=== PATIENT | male | born 1990 | race Caucasian/White ===

== ENCOUNTER 2018-01-26 09:28 | Emergency (ER) | payer SELFPAY ==
--- NOTE | 2018-01-26 10:07 | EDPHYS ---
Physician Documentation [facility] Name: Morgan Mckeon Age: 27 yrs Sex: Male : 1990 Arrival Date: 01/26/2018 Time: 09:30 Bed 15 Private MD: ED Physician Jasbir Tolbert HPI: 01/26 09:59 This 27 yrs old Male presents to ER via EMS with complaints of Chest Pain. snw 09:59 Onset: The symptoms/episode began/occurred suddenly, just prior to arrival. Associated snw signs and symptoms: Pertinent positives: chest pain. Modifying factors: The patient symptoms are alleviated by nothing. The patient has experienced similar episodes in the past. It is unknown whether or not the patient has recently seen a physician. Pt has not been taking his medications for HTN, anxiety since October. Historical: - Allergies: : No Known Allergies; rb1 - Home Meds: : None [Active]; rb1 - PMHx: :22 CHEST PAIN; rb1 - PSHx: : None; rb1 - Immunization history:: Adult Immunizations up to date. - Social history:: Smoking status: Patient uses tobacco products, chewing tobacco. - Ebola Screening: : Patient negative for fever greater than or equal to 101.5 degrees Fahrenheit, and additional compatible Ebola Virus Disease symptoms. ROS: 09:51 Constitutional: Negative for fever, chills, and weight loss, Eyes: Negative for injury, snw pain, redness, and discharge, ENT: Negative for injury, pain, and discharge, Neck: Negative for injury, pain, and swelling, Cardiovascular: Negative for palpitations and edema, chest pain Respiratory: Negative for shortness of breath, cough, wheezing, and pleuritic chest pain, Abdomen/GI: Negative for abdominal pain, nausea, vomiting, diarrhea, and constipation, Back: Negative for injury and pain, : Negative for injury, bleeding, discharge, and swelling, MS/Extremity: Negative for injury and deformity, Skin: Negative for injury, rash, and discoloration, Neuro: Negative for headache, weakness, numbness, tingling, and seizure, Psych: Negative for depression, anxiety, suicide ideation, homicidal ideation, and hallucinations. Exam: 09:51 Constitutional: This is a well developed, well nourished patient who is awake, alert, snw and in no acute distress. Head/Face: Normocephalic, atraumatic. Eyes: Pupils equal round and reactive to light, extra-ocular motions intact. Lids and lashes normal. Conjunctiva and sclera are non-icteric and not injected. Cornea within normal limits. Periorbital areas with no swelling, redness, or edema. ENT: Nares patent. No nasal discharge, no septal abnormalities noted. Tympanic membranes are normal and external auditory canals are clear. Oropharynx with no redness, swelling, or masses, exudates, or evidence of obstruction, uvula midline. Mucous membranes moist. Neck: Trachea midline, no thyromegaly or masses palpated, and no cervical lymphadenopathy. Supple, full range of motion without nuchal rigidity, or vertebral point tenderness. No Meningismus. Chest/axilla: Normal chest wall appearance and motion. Nontender with no deformity. No lesions are appreciated. Cardiovascular: Regular rate and rhythm with a normal S1 and S2. No gallops, murmurs, or rubs. Normal PMI, no JVD. No pulse deficits. Respiratory: Lungs have equal breath sounds bilaterally, clear to auscultation and percussion. No rales, rhonchi or wheezes noted. No increased work of breathing, no retractions or nasal flaring. Abdomen/GI: Soft, non-tender, with normal bowel sounds. No distension or tympany. No guarding or rebound. No evidence of tenderness throughout. Back: No spinal tenderness. No costovertebral tenderness. Full range of motion. Skin: Warm, dry with normal turgor. Normal color with no rashes, no lesions, and no evidence of cellulitis. MS/ Extremity: Pulses equal, no cyanosis. Neurovascular intact. Full, normal range of motion. Neuro: Awake and alert, GCS 15, oriented to person, place, time, and situation. Cranial nerves II-XII grossly intact. Motor strength 5/5 in all extremities. Sensory grossly intact. Cerebellar exam normal. Normal gait. Vital Signs: 09:22 BP 145 / 93; Pulse 59; Resp 20; Temp 98.6(O); Pulse Ox 99% on R/A; Weight 124.74 kg; rb1 Height 6 ft. 0 in. (182.88 cm) (R); Pain 10/10; 10:20 BP 138 / 87; Pulse 61; Resp 17; Pulse Ox 99% on R/A; rb1 09:22 Body Mass Index 37.30 (124.74 kg, 182.88 cm) rb1 MDM: 09:32 Patient medically screened. snw 10:07 Data reviewed: vital signs, nurses notes. Data interpreted: Pulse oximetry: on room air snw is 99 %. Interpretation: normal. Counseling: I had a detailed discussion with the patient and/or guardian regarding: the historical points, exam findings, and any diagnostic results supporting the discharge/admit diagnosis, the presence of at least one elevated blood pressure reading (>120/80) during this emergency department visit, the need for outpatient follow up, for definitive care, to return to the emergency department if symptoms worsen or persist or if there are any questions or concerns that arise at home. Special discussion: Based on the patient's history, exam, and Dx evaluation, there is no indication for emergent intervention or inpatient Tx. It is understood by the patient/guardian that if the Sx's persist or worsen they need to return immediately for re-evaluation. Based on the history and exam findings, there is no indication for further emergent testing or inpatient evaluation. I discussed with the patient/guardian the need to see the primary care provider for further evaluation of the symptoms. 01/26 09:35 Order name: Chest Pa And Lat (2 Views) XRAY snw 01/26 09:35 Order name: EKG; Complete Time: 09:35 snw 01/26 09:35 Order name: EKG - Nurse/Tech; Complete Time: 09:38 snw Administered Medications: No medications were administered Disposition: 15:14 Co-signature as Attending Physician, Jasbir Tolbert MD I agree with the assessment and kdr plan of care. Disposition: 01/26/18 10:06 Discharged to Home. Impression: Gastro-esophageal reflux disease, Chest pain, unspecified. - Condition is Stable. - Discharge Instructions: Nonspecific Chest Pain, Gastroesophageal Reflux Disease, Adult, Hypertension. - Prescriptions for Zantac 300 mg Oral Tablet - take 1 tablet by ORAL route At bedtime; 30 tablet. - Medication Reconciliation Form, Thank You Letter, Antibiotic Education, Prescription Opioid Use form. - Follow up: Private Physician; When: 2 - 3 days; Reason: Recheck today's complaints, Continuance of care, Re-evaluation by your physician. Follow up: Emergency Department; When: As needed; Reason: Worsening of condition. Signatures: Dispatcher [employer] EDMS Jasbir Tolbert MD MD kdr Therrien, Shelly, KARTHIK-C STROKE PROGRAM COORDINATOR-Gew Ena Lechuga, RN RN rb1 Corrections: (The following items were deleted from the chart) 10:28 10:06 01/26/2018 10:06 Discharged to Home. Impression: Gastro-esophageal reflux rb1 disease; Chest pain, unspecified. Condition is Stable. Forms are Medication Reconciliation Form, Thank You Letter, Antibiotic Education, Prescription Opioid Use. Follow up: Private Physician; When: 2 - 3 days; Reason: Recheck today's complaints, Continuance of care, Re-evaluation by your physician. Follow up: Emergency Department; When: As needed; Reason: Worsening of condition. snw
--- NOTE | 2018-01-26 10:07 | ER ---
Nurse's Notes [facility] Name: Morgan Mckeon Age: 27 yrs Sex: Male : 1990 Arrival Date: 01/26/2018 Time: 09:30 Bed 15 Private MD: Diagnosis: Gastro-esophageal reflux disease;Chest pain, unspecified Presentation: 01/26 09:22 Presenting complaint: EMS states: Pt. is a norris at work, c/o chest pain on left chest rb1 that radiates to the back, has a lot of pressure. He was clammy and pale when EMS arrived. History of chest pain. Is suppose to take medication but hasn't taken any since October. BP 166/86, P 66, O2 98% RA. Transition of care: patient was not received from another setting of care. Onset of symptoms was January 26, 2018 at 04:30. Risk Assessment: Do you want to hurt yourself or someone else? Patient reports no desire to harm self or others. Initial Sepsis Screen: Does the patient meet any 2 criteria? No. Patient's initial sepsis screen is negative. Does the patient have a suspected source of infection? No. Patient's initial sepsis screen is negative. Care prior to arrival: None. :22 Method Of Arrival: EMS: [facility] 09:22 Acuity: JOSE 3 rb1 Triage Assessment: : General: Appears in no apparent distress. comfortable, Behavior is calm, cooperative, rb1 Denies fever. Pain: Complains of pain in left chest Pain radiates to back Pain currently is 10 out of 10 on a pain scale. Pain began 0430. Neuro: Level of Consciousness is awake, alert, obeys commands, Oriented to person, place, time, situation. Cardiovascular: Capillary refill < 3 seconds is brisk in bilateral fingers. Respiratory: Airway is patent Respiratory effort is even, unlabored, Respiratory pattern is regular, symmetrical. GI: No signs and/or symptoms were reported involving the gastrointestinal system. : No signs and/or symptoms were reported regarding the genitourinary system. Derm: Skin is pink, warm \T\ dry. Musculoskeletal: Range of motion: intact in all extremities. Historical: - Allergies: 09: No Known Allergies; rb1 - Home Meds: : None [Active]; rb1 - PMHx: : CHEST PAIN; rb1 - PSHx: 09: None; rb1 - Immunization history:: Adult Immunizations up to date. - Social history:: Smoking status: Patient uses tobacco products, chewing tobacco. - Ebola Screening: : Patient negative for fever greater than or equal to 101.5 degrees Fahrenheit, and additional compatible Ebola Virus Disease symptoms. Screenin: Abuse screen: Denies threats or abuse. Nutritional screening: No deficits noted. rb1 Tuberculosis screening: No symptoms or risk factors identified. Fall Risk None identified. Assessment: : General: See triage assessment. rb1 10:20 Reassessment: Patient appears in no apparent distress at this time. Patient and/or rb1 family updated on plan of care and expected duration. Pain level reassessed. Patient is alert, oriented x 3, equal unlabored respirations, skin warm/dry/pink. 6/10. Vital Signs: : BP 145 / 93; Pulse 59; Resp 20; Temp 98.6(O); Pulse Ox 99% on R/A; Weight 124.74 kg; rb1 Height 6 ft. 0 in. (182.88 cm) (R); Pain 10/10; 10:20 BP 138 / 87; Pulse 61; Resp 17; Pulse Ox 99% on R/A; rb1 09:22 Body Mass Index 37.30 (124.74 kg, 182.88 cm) rb1 ED Course: : Arm band placed on right wrist. rb1 :22 Patient has correct armband on for positive identification. Bed in low position. Call rb1 light in reach. Side rails up X 1. quality assurance monitor chassis on. Pulse ox on. NIBP on. 09:30 Patient arrived in ED. rb1 09:32 Che Choudhury FNP-C is PHCP. snw 09:32 Jasbir Tolbert MD is Attending Physician. snw 09:37 Triage completed. rb1 09:38 EKG done, by ED staff, reviewed by Che ENGEL. dh3 09:56 Chest Pa And Lat (2 Views) XRAY In Process Unspecified. EDMS 09:59 Ena Lechuga, EITAN is Primary Nurse. rb1 10:27 No provider procedures requiring assistance completed. Patient did not have IV access rb1 during this emergency room visit. Administered Medications: No medications were administered Outcome: 10:06 Discharge ordered by . snw 10:27 Discharged to home ambulatory, with friend. rb1 10:27 Condition: stable 10:27 Discharge instructions given to patient, Instructed on discharge instructions, follow up and referral plans. medication usage, Demonstrated understanding of instructions, follow-up care, medications, Prescriptions given X 1. 10:28 Patient left the ED. rb1 Signatures: Dispatcher [employer] EDMS Che Choudhury, KARTHIK-C MOBILE APPLICATION ARCHITECT-Gew Ena Lechuga, RN RN rb1 Yee Shin [facility]
--- NOTE | 2018-01-26 12:14 | RAD REPORT ---
EXAM DESCRIPTION: RAD - Chest Pa And Lat (2 Views) - 01/26/2018 9:57 am CLINICAL HISTORY: Left-sided chest pain COMPARISON: October 2013 TECHNIQUE: PA and lateral views of the chest were obtained. FINDINGS: The lungs are clear. Heart size is normal and central vasculature is within normal limit s. No pleural effusion or pneumothorax seen. No acute bony finding noted. No aortic abnormality. IMPRESSION: No acute cardiopulmonary process.
--- NOTE | 2018-01-27 09:05 | EKG ---
Test Date: 2018-01-26 Test Time: 09:30:36 An/Syq 13 Nav/C2 Operator: BLAZE MEASUREMENT RESULTS: Intervals: Rate: 62 SD: 128 QRSD: 104 QT: 400 QTc: 406 Hardwick: P: 35 SD: 128 QRS: 60 T: 33 INTERPRETIVE STATEMENTS: Sinus rhythm with marked sinus arrhythmia Otherwise normal ECG Compared to ECG 10/20/2013 21:49:27 Sinus bradycardia no longer present Electronically Signed On 01-27-18 09:04:32 CDT by Kem Gilliland
== END 2018-01-26 10:28 | disposition home or self-care (01) ==
LOC: ER 09:28
DX: K21.9 Gastro-esophageal reflux disease without esophagitis (principal); F17.220 Nicotine dependence, chewing tobacco, uncomplicated
CPT/HCPCS: 71046; 93005; 99284

== ENCOUNTER 2021-09-26 10:38 | Emergency (ER) | payer SELFPAY ==
--- OUTSIDE RECORDS SUMMARY | 2021-09-26 10:41 | XMS REPORT | Continuity of Care Document ---
:1990 Author Organization [facility] t Address [address] [place] [address] Care Team Providers Name Role Phone OLGA Attending Clinician Unavailable OLGA Admitting Clinician Unavailable Problems This patient has no known problems. Allergies, Adverse Reactions, Alerts This patient has no known allergies or adverse reactions. Medications This patient has no known medications. Procedures This patient has no known procedures. Encounters Start End Encounter Admission Attending Care Care Encounter Source Date/Time Date/Time Type Type Clinicians Facility Department ID 2021-05-04 2021-05-04 Outpatient SHIRA STEIN [facility] [phone] [place] 09:02:00 09:02:00 H [facility] h Program Results This patient has no known results.
[2021-09-26 11:09] LABS: Urine Blood Negative (Negative); Urine Glucose Negative (Negative); Urine Protein Negative (Negative); Urine Specific Gravity 1.025 (1.005-1.030); Urine pH 5.5 (5.0-7.0)
[2021-09-26] MEDS ORDERED: MORPHINE 4 MG/ML SYR ONE (11:10)
[2021-09-26] MEDS ORDERED: ONDANSETRON 4 MG/2 ML VIAL ONE (11:11)
[2021-09-26] MEDS ORDERED: NA CHLORIDE 0.9% 1,000 ML ONE (11:12)
[2021-09-26 11:20] LABS: Urine Bacteria <20 /HPF (NONE SEEN); Urine RBC <5 /HPF (NONE SEEN)
[2021-09-26 11:20] LABS: Absolute Lymphocytes (CBC) 2.9 K/uL (0.7-4.9); Hematocrit 41.6 % (39.6-49.0); MPV 8.1 fL (7.6-11.3); RBC Red Blood Cell Count 5.01 M/uL (4.33-5.43)
[2021-09-26 11:36] LABS: Albumin 3.9 g/dL (3.4-5.0); Bilirubin Total 0.5 mg/dL (0.2-1.0); Potassium 4.2 mmol/L (3.5-5.1); Protein, Total 8.1 g/dL (6.4-8.2)
--- NOTE | 2021-09-26 11:54 | RAD REPORT ---
EXAM DESCRIPTION: CT - [facility] Protocol - 09/26/2021 11:40 am CLINICAL HISTORY: Abdominal pain. Right flank pain COMPARISON: None. TECHNIQUE: Computed axial tomography of the abdomen pelvis was obtained without oral or IV contrast. Lack of IV and oral contrast limits evaluation of solid organs, bowel, and vessels. Coronal reformat sari images were obtained and reviewed. All CT scans are performed using dose optimization technique as appropriate and may include automated exposure control or mA/KV adjustment according to patient size. FINDINGS: A renal calculus is not seen. An ureteral calculus is not noted. A bladder calculus is not present. The liver, spleen, pancreas and adrenals appear grossly normal There is no evidence of diverticulitis. The appendix appears normal Small umbilical hernia IMPRESSION: Negative for a genitourinary calculus
--- NOTE | 2021-09-26 12:10 | ER ---
Nurse's Notes [facility] Name: Morgan Mckeon Age: 31 yrs Sex: Male : 1990 Arrival Date: 09/26/2021 Time: 10:39 Bed 5 Private MD: Diagnosis: Sprain of ligaments of lumbar spine Presentation: 09/26 10:42 Chief complaint: Patient states: Right flank pain with nausea and Lower ABD pain x 2 vg1 days; also stated has a burning sensation upon urination. Coronavirus screen: Vaccine status: Patient reports receiving the 2nd dose of the covid vaccine. Client denies travel out of the [place] in the last 14 days. Ebola Screen: Patient denies exposure to infectious person. Patient denies travel to an Ebola-affected area in the 21 days before illness onset. Initial Sepsis Screen: Does the patient meet any 2 criteria? No. Patient's initial sepsis screen is negative. Does the patient have a suspected source of infection? No. Patient's initial sepsis screen is negative. Risk Assessment: Do you want to hurt yourself or someone else? Patient reports no desire to harm self or others. Onset of symptoms was September 24, 2021. 10:42 Method Of Arrival: Ambulatory vg1 10:42 Acuity: JOSE 3 vg1 Triage Assessment: 10:44 General: Appears in no apparent distress. uncomfortable, Behavior is calm, cooperative. vg1 Pain: Complains of pain in posterior aspect of right lateral abdomen, right lower quadrant and left lower quadrant Pain currently is 5 out of 10 on a pain scale. GI: Reports lower abdominal pain, nausea. : Reports burning with urination. Musculoskeletal: Circulation, motion, and sensation intact. Historical: - Allergies: 10:44 No Known Allergies; vg1 - Home Meds: 10:44 None [Active]; vg1 - PMHx: 10:44 Hypertensive disorder; Bipolar disorder; Anxiety; Depressive disorder; vg1 - PSHx: 10:44 None; vg1 - Immunization history:: Client reports receiving the 2nd dose of the Covid vaccine. - Social history:: Smoking status: Patient denies any tobacco usage or history of. Screenin:53 Abuse screen: Denies threats or abuse. Denies injuries from another. Nutritional jg9 screening: No deficits noted. Tuberculosis screening: No symptoms or risk factors identified. Fall Risk None identified. Assessment: 10:53 Neuro: No deficits noted. Musculoskeletal: Reports heavy lifting more than normal over jg9 the past few days. 11:35 Reassessment: Patient and/or family updated on plan of care and expected duration. Pain jg9 level reassessed. Patient is alert, oriented x 3, equal unlabored respirations, skin warm/dry/pink. Patient states feeling better. Patient states symptoms have improved. Vital Signs: 10:42 BP 145 / 92; Pulse 65; Resp 16; Temp 99.0(TE); Pulse Ox 100% ; Weight 145.15 kg; Height vg1 6 ft. 0 in. (182.88 cm); Pain 5/10; 10:55 BP 143 / 83; Pulse 64; Resp 14 S; Pulse Ox 98% on R/A; jg9 12:00 BP 140 / 80; Pulse 65; Resp 16 S; Pulse Ox 98% on R/A; Pain 2/10; jg9 10:42 Body Mass Index 43.40 (145.15 kg, 182.88 cm) vg1 ED Course: 10:39 Patient arrived in ED. am2 10:44 Triage completed. vg1 10:44 Arm band placed on. vg1 10:49 Kellen Wylie, RN is Primary Nurse. jg9 10:53 [facility] Marshall [facility] jh7 10:54 Juan Antonio Newell MD is Attending Physician. [facility] 10:54 Patient has correct armband on for positive identification. Bed in low position. Call jg9 light in reach. Side rails up X 1. 11:10 Inserted saline lock: 22 gauge in left antecubital area, using aseptic technique. Blood jg9 collected. 11:42 CT [facility] Protocol In Process Unspecified. EDMS 12:17 No provider procedures requiring assistance completed. jg9 12:18 IV discontinued. jg9 Administered Medications: 11:13 Drug: NS 0.9% 1000 ml Route: IV; Rate: 1 bolus; Site: left antecubital; jg9 12:05 Follow up: IV Status: Completed infusion; IV Intake: 1000ml jg9 11:14 Drug: Zofran (Ondansetron) 4 mg Route: IVP; Infused Over: 2 mins; Site: left jg9 antecubital; 11:35 Follow up: Response: No adverse reaction; Nausea is decreased jg9 11:14 Drug: morphine 4 mg Route: IVP; Infused Over: 4 mins; Site: left antecubital; jg9 11:35 Follow up: Response: No adverse reaction; Pain is decreased jg9 Medication: 10:55 VIS not applicable for this client. jg9 Intake: 12:05 IV: 1000ml; Total: 1000ml. jg9 Outcome: 12:09 Discharge ordered by MD. reynolds 12:17 Discharged to home ambulatory. jg9 12:17 Condition: stable 12:17 Discharge instructions given to patient, Instructed on discharge instructions, follow up and referral plans. Demonstrated understanding of instructions, follow-up care, medications, Prescriptions given X 2. 12:18 Patient left the ED. jg9 Signatures: Dispatcher [employer] EDJoyce Parkinson Victoria RN RN vg1 Kellen Wylie RN RN jg9 Kellen Marshall, KARTHIK reynolds Corrections: (The following items were deleted from the chart) 10:45 10:44 PMHx: chest pain; vg1 vg1
--- NOTE | 2021-09-26 12:10 | EDPHYS ---
Physician Documentation [facility] Name: Morgan Mckeon Age: 31 yrs Sex: Male : 1990 Arrival Date: 09/26/2021 Time: 10:39 Bed 5 Private MD: Juan Antonio Howell HPI: 09/26 10:50 This 31 yrs old Male presents to ER via Ambulatory with complaints of Flank Pain, Back jh7 Pain. 10:50 The patient complains of pain in the right low back. The pain does not radiate. Onset: jh7 The symptoms/episode began/occurred 2 day(s) ago. Associated signs and symptoms: Pertinent positives: Mild tingling sensation at the tip of his penis after urinating. Patient reports right lower back pain with mild nausea for 2 days. He denies any recent sexual activity, and states he has no concern for an STI. He also denies fever. States that he has been lifting a lot of heavy boxes lately, but wants to ensure he does not have a renal stone.. Historical: - Allergies: 10:44 No Known Allergies; vg1 - Home Meds: 10:44 None [Active]; vg1 - PMHx: 10:44 Hypertensive disorder; Bipolar disorder; Anxiety; Depressive disorder; vg1 - PSHx: 10:44 None; vg1 - Immunization history:: Client reports receiving the 2nd dose of the Covid vaccine. - Social history:: Smoking status: Patient denies any tobacco usage or history of. ROS: 10:50 Constitutional: Negative for fever, chills, and weight loss, Eyes: Negative for injury, jh7 pain, redness, and discharge, Neck: Negative for injury, pain, and swelling, Cardiovascular: Negative for chest pain, palpitations, and edema, Respiratory: Negative for shortness of breath, cough, wheezing, and pleuritic chest pain, : Negative for injury, bleeding, discharge, and swelling. 10:50 Skin: Negative for injury, rash, and discoloration, Neuro: Negative for headache, weakness, numbness, tingling, and seizure. 10:50 Abdomen/GI: Positive for nausea, Negative for abdominal pain, diarrhea, abdominal distension, rectal pain, rectal bleeding. 10:50 Back: Positive for flank pain, on the right. Exam: 10:50 Constitutional: This is a well developed, well nourished patient who is awake, alert, jh7 and in no acute distress. ENT: Nares patent. No nasal discharge, no septal abnormalities noted. Tympanic membranes are normal and external auditory canals are clear. Oropharynx with no redness, swelling, or masses, exudates, or evidence of obstruction, uvula midline. Mucous membranes moist. Neck: Trachea midline, no thyromegaly or masses palpated, and no cervical lymphadenopathy. Supple, full range of motion without nuchal rigidity, or vertebral point tenderness. No Meningismus. Cardiovascular: Regular rate and rhythm with a normal S1 and S2. No gallops, murmurs, or rubs. Normal PMI, no JVD. No pulse deficits. Respiratory: Lungs have equal breath sounds bilaterally, clear to auscultation and percussion. No rales, rhonchi or wheezes noted. No increased work of breathing, no retractions or nasal flaring. Skin: Warm, dry with normal turgor. Normal color with no rashes, no lesions, and no evidence of cellulitis. MS/ Extremity: Pulses equal, no cyanosis. Neurovascular intact. Full, normal range of motion. Neuro: Awake and alert, GCS 15, oriented to person, place, time, and situation. Motor strength 5/5 in all extremities. Sensory grossly intact. Normal gait. 10:50 Back: pain, that is moderate, of the right low back, ROM is normal, CVA tenderness, that is moderate, is noted on the right. 10:50 : CVA tenderness, on the right, Male external genitalia: normal. Vital Signs: 10:42 BP 145 / 92; Pulse 65; Resp 16; Temp 99.0(TE); Pulse Ox 100% ; Weight 145.15 kg; Height vg1 6 ft. 0 in. (182.88 cm); Pain 5/10; 10:55 BP 143 / 83; Pulse 64; Resp 14 S; Pulse Ox 98% on R/A; jg9 12:00 BP 140 / 80; Pulse 65; Resp 16 S; Pulse Ox 98% on R/A; Pain 2/10; jg9 10:42 Body Mass Index 43.40 (145.15 kg, 182.88 cm) 1 MDM: 10:54 Patient medically screened. [facility] 12:10 Differential diagnosis: nephrolithiasis, UTI, Lumbar strain. Data reviewed: vital [facility] signs, nurses notes, lab test result(s), radiologic studies, CT scan. Data interpreted: Pulse oximetry: is 98 %. Interpretation: normal. Counseling: I had a detailed discussion with the patient and/or guardian regarding: the historical points, exam findings, and any diagnostic results supporting the discharge/admit diagnosis, to return to the emergency department if symptoms worsen or persist or if there are any questions or concerns that arise at home. ED course: The patient remained stable throughout his ER visit. Discussed labs and CT results. The patient stated he felt much better after fluids and medication. Stated that he figured it was probably his back that he pulled while lifting boxes, and that the strange sensation that he feels after urinating often happens when he is dehydrated. Advised him to return to the ER if he develops any new concerning symptoms, or current symptoms persist.. 09/26 10:59 Order name: CBC with Diff; Complete Time: 12:00 [facility] 09/26 10:59 Order name: CMP; Complete Time: 12:00 [facility] 09/26 10:59 Order name: Lipase; Complete Time: 12:00 [facility] 09/26 10:59 Order name: Urine Microscopic Only; Complete Time: 12:00 [facility] 09/26 10:59 Order name: CT Stone Protocol; Complete Time: 12:00 [facility] 09/26 11:09 Order name: Urine Dipstick-Ancillary; Complete Time: 12:00 [facility] 09/26 10:59 Order name: IV Saline Lock; Complete Time: 11:13 [facility] 09/26 10:59 Order name: Labs collected and sent; Complete Time: 11:14 [facility] 09/26 10:59 Order name: Urine Dipstick-Ancillary (obtain specimen); Complete Time: 11:14 [facility] Administered Medications: 11:13 Drug: NS 0.9% 1000 ml Route: IV; Rate: 1 bolus; Site: left antecubital; j9 12:05 Follow up: IV Status: Completed infusion; IV Intake: 1000ml j9 11:14 Drug: Zofran (Ondansetron) 4 mg Route: IVP; Infused Over: 2 mins; Site: left jg9 antecubital; 11:35 Follow up: Response: No adverse reaction; Nausea is decreased 9 11:14 Drug: morphine 4 mg Route: IVP; Infused Over: 4 mins; Site: left antecubital; jg9 11:35 Follow up: Response: No adverse reaction; Pain is decreased jg9 Disposition Summary: 09/26/21 12:09 Discharge Ordered Location: Home [facility] Problem: new [facility] Symptoms: have improved [facility] Condition: Stable [facility] Diagnosis - Sprain of ligaments of lumbar spine [facility] Followup: [facility] - With: Private Physician - When: 2 - 3 days - Reason: Recheck today's complaints Discharge Instructions: - Discharge Summary Sheet [facility] Forms: - Medication Reconciliation Form [facility] - Thank You Letter [facility] Prescriptions: - Naprosyn 500 mg Oral Tablet - take 1 tablet by ORAL route 2 times per day take with food; 30 tablet; Refills: [facility] 0, Product Selection Permitted - Zanaflex 4 mg Oral Tablet - take 1 tablet by ORAL route every 8 hours As needed; 20 tablet; Refills: 0, 7 Product Selection Permitted Signatures: Dispatcher [employer] Sparkle Brock RN RN vg1 Kellen Wylie RN RN jg9 Kellen Marshall, ELECTRIC TRUCK DRIVER ELECTRIC TRUCK DRIVER 7 Corrections: (The following items were deleted from the chart) 10:45 10:44 PMHx: chest pain; vg1 vg1
[2021-09-26 12:30] VITALS: TEMP 99
[2021-09-26 12:32] VITALS: BP 143/83; O2SAT 98
== END 2021-09-26 12:18 | disposition home or self-care (01) ==
LOC: ER 10:38
DX: S33.5XXA Sprain of ligaments of lumbar spine, initial encounter (principal); R11.0 Nausea; I10 Essential (primary) hypertension
CPT/HCPCS: 36415; 74176; 76377; 80053; 81003; 81015; 83690; 85025; J2405; J7030

== ENCOUNTER 2022-04-09 16:47 | Emergency (ER) | payer SELFPAY ==
--- OUTSIDE RECORDS SUMMARY | 2022-04-09 16:51 | XMS REPORT | Continuity of Care Document ---
:1990 Author Organization [facility] t Address [address] [place] [address] Care Team Providers Name Role Phone OLGA Attending Clinician Unavailable OLAG Admitting Clinician Unavailable Problems This patient has no known problems. Allergies, Adverse Reactions, Alerts This patient has no known allergies or adverse reactions. Medications This patient has no known medications. Procedures This patient has no known procedures. Encounters Start End Encounter Admission Attending Care Care Encounter Source Date/Time Date/Time Type Type Clinicians Facility Department ID 2021-05-04 2021-05-04 Outpatient SHIRA STEIN [facility] [id number] [place] 09:02:00 09:02:[address] [facility] h Program Results This patient has no known results.
--- NOTE | 2022-04-09 20:09 | RAD REPORT ---
EXAM DESCRIPTION: RAD - Wrist Left 3 View - 04/09/2022 7:34 pm CLINICAL HISTORY: Left wrist pain FINDINGS: No fracture or dislocation is seen. No bone or joint abnormality noted
--- NOTE | 2022-04-09 20:24 | EDPHYS ---
Physician Documentation [facility] Name: Mogran Mckeon Age: 31 yrs Sex: Male : 1990 Arrival Date: 04/09/2022 Time: 16:51 Bed 9 Private MD: ED Physician Magalie Mora HPI: 04/09 19:00 This 31 yrs old Male presents to ER via Ambulatory with complaints of Arm Problem. cp 19:00 The patient or guardian complains of pain, that is acute. The complaints affect the cp dorsal aspect of left forearm and left wrist. Context: resulted from unknown cause. 19:00 Onset: The symptoms/episode began/occurred for past several weeks. cp 19:00 Treatment prior to arrival includes: no previous treatment. Modifying factors: the cp symptoms are aggravated by movement. Associated signs and symptoms: Pertinent negatives: decreased range of motion, numbness, weakness, injury. Historical: - Allergies: 17:38 No Known Allergies; ss - Home Meds: 17:38 None [Active]; ss - PMHx: 17:38 Anxiety; Bipolar disorder; depressive disorder; Hypertensive disorder; ss - PSHx: 17:38 None; ss - Immunization history:: Client reports receiving the 2nd dose of the Covid vaccine. - Social history:: Smoking status: Patient denies any tobacco usage or history of. ROS: 19:05 Constitutional: Negative for body aches, chills, fever, poor PO intake. cp 19:05 Eyes: Negative for injury, pain, redness, and discharge. cp 19:05 Respiratory: Negative for cough, shortness of breath, wheezing. 19:05 Abdomen/GI: Negative for abdominal pain, nausea, vomiting, and diarrhea. 19:05 MS/extremity: Positive for pain, swelling, tenderness, of the dorsal radial side of left wrist, Negative for injury or acute deformity, decreased range of motion, paresthesias. 19:05 Skin: Negative for cellulitis, rash. Exam: 19:10 Constitutional: The patient appears in no acute distress, alert, awake, non-toxic, well cp developed, well nourished, obese. 19:10 Head/Face: Normocephalic, atraumatic. cp 19:10 Musculoskeletal/extremity: Extremities: grossly normal except: noted in the dorsal and cp radial side of left forearm: pain, swelling, tenderness, pain with flexion and extension of left wrist, There is no evidence of decreased ROM, Pulses: noted to be 2+ in the left radial artery, the left wristand left hand Sensation intact. 19:10 Skin: cellulitis, is not appreciated, no rash present. 19:10 Neck: ROM/movement: is normal, is supple, without pain, no range of motions limitations.cp 19:10 Chest/axilla: Inspection: normal. 19:10 Cardiovascular: Rate: normal, Rhythm: regular. 19:10 Respiratory: the patient does not display signs of respiratory distress, Respirations: normal, no use of accessory muscles, no retractions, labored breathing, is not present. Vital Signs: 17:36 Pulse 89; Resp 15; Temp 98.0(TE); Pulse Ox 97% on R/A; Weight 143.79 kg; Height 6 ft. 0 ss in. (182.88 cm); Pain 4/10; 17:39 BP 157 / 93; ss 20:46 BP 148 / 90; Pulse 86; Resp 16; Pulse Ox 98% on R/A; kr3 17:36 Body Mass Index 42.99 (143.79 kg, 182.88 cm) ss MDM: 17:44 Patient medically screened. cp 20:00 Differential diagnosis: closed fracture, tendonitis, sprain. cp 20:24 Data reviewed: vital signs, nurses notes, radiologic studies, plain films. cp 20:24 Test interpretation: by ED physician or midlevel provider: plain radiologic studies. cp Counseling: I had a detailed discussion with the patient and/or guardian regarding: the historical points, exam findings, and any diagnostic results supporting the discharge/admit diagnosis, radiology results, to return to the emergency department if symptoms worsen or persist or if there are any questions or concerns that arise at home. Response to treatment: the patient's symptoms have mildly improved after treatment, and as a result, I will discharge patient. 04/09 18:55 Order name: XRAY Wrist LEFT 3 view; Complete Time: 20:15 cp 04/09 20:15 Interpretation: Report reviewed. cp 04/09 20:15 Order name: Wrist Splint; Complete Time: 20:40 cp Administered Medications: 20:40 Drug: Ibuprofen 800 mg Route: PO; kr3 20:47 Follow up: Response: No adverse reaction kr3 Disposition Summary: 04/09/22 20:24 Discharge Ordered Location: Home cp Problem: new cp Symptoms: have improved cp Condition: Stable cp Diagnosis - Pain in left wrist cp Followup: cp - With: Private Physician - When: 1 week - Reason: Recheck today's complaints Discharge Instructions: - Discharge Summary Sheet cp - Wrist Pain, Adult cp Forms: - Medication Reconciliation Form cp - Thank You Letter cp - Antibiotic Education cp - Prescription Opioid Use cp - Work release form kr3 Prescriptions: - Diclofenac Sodium 75 mg Oral Tablet Sustained Release - take 1 tablet by ORAL route 2 times per day; 30 tablet; Refills: 0, Product cp Selection Permitted Signatures: Dispatcher [employer] Lorna Mejia RN RN ss Page, Corey, PA PA Cassidy Dickey RN RN kr3
--- NOTE | 2022-04-09 20:24 | ER ---
Nurse's Notes [facility] Name: Morgan Mckeon Age: 31 yrs Sex: Male : 1990 Arrival Date: 04/09/2022 Time: 16:51 Bed 9 Private MD: Diagnosis: Pain in left wrist Presentation: 04/09 17:36 Chief complaint: Patient states: Pain to L FA that radiates to L elbow x weeks. No ss known injury. Coronavirus screen: Client denies travel out of the [place] in the last 14 days. Ebola Screen: Patient denies exposure to infectious person. Patient denies travel to an Ebola-affected area in the 21 days before illness onset. Initial Sepsis Screen: Does the patient meet any 2 criteria? No. Patient's initial sepsis screen is negative. Does the patient have a suspected source of infection? No. Patient's initial sepsis screen is negative. Risk Assessment: Do you want to hurt yourself or someone else? Patient reports no desire to harm self or others. Onset of symptoms is unknown. 17:36 Method Of Arrival: Ambulatory ss 17:36 Acuity: OJSE 3 ss Historical: - Allergies: 17:38 No Known Allergies; ss - Home Meds: 17:38 None [Active]; ss - PMHx: 17:38 Anxiety; Bipolar disorder; depressive disorder; Hypertensive disorder; ss - PSHx: 17:38 None; ss - Immunization history:: Client reports receiving the 2nd dose of the Covid vaccine. - Social history:: Smoking status: Patient denies any tobacco usage or history of. Assessment: 19:45 Reassessment: Patient appears in no apparent distress at this time. Patient and/or kr3 family updated on plan of care and expected duration. Pain level reassessed. Patient is alert, oriented x 3, equal unlabored respirations, skin warm/dry/pink. 20:45 Reassessment: Patient appears in no apparent distress at this time. Patient and/or kr3 family updated on plan of care and expected duration. Pain level reassessed. Patient is alert, oriented x 3, equal unlabored respirations, skin warm/dry/pink. Vital Signs: 17:36 Pulse 89; Resp 15; Temp 98.0(TE); Pulse Ox 97% on R/A; Weight 143.79 kg; Height 6 ft. 0 ss in. (182.88 cm); Pain 4/10; 17:39 BP 157 / 93; ss 20:46 BP 148 / 90; Pulse 86; Resp 16; Pulse Ox 98% on R/A; kr3 17:36 Body Mass Index 42.99 (143.79 kg, 182.88 cm) ED Course: 16:51 Patient arrived in ED. mr 16:51 Sarath De La Cruz PA is PHCP. [facility] 16:51 Magalie Mora MD is Attending Physician. [facility] 16:59 PHCP role handed off by Sarath De La Cruz PA cp 16:59 Juan Antonio Mix PA is PHCP. cp 17:38 Triage completed. ss 17:38 Arm band placed on right wrist. ss 19:36 XRAY Wrist LEFT 3 view In Process Unspecified. EDMS Administered Medications: 20:40 Drug: Ibuprofen 800 mg Route: PO; kr3 20:47 Follow up: Response: No adverse reaction kr3 Outcome: 20:24 Discharge ordered by . cp 20:47 Patient left the ED. kr3 Signatures: Dispatcher [employer] EDMS Sarath De La Cruz PA PA jmm Zeeshan Bri mr Lorna Scott, RN RN Juan Antonio Mix PA PA cp Reid, Kelley, RN RN kr3 Corrections: (The following items were deleted from the chart) 17:38 17:35 Chief complaint: ss ss
[2022-04-09] MEDS ORDERED: IBUPROFEN 400 MG TAB ONE (20:34)
[2022-04-09 21:14] VITALS: TEMP 98
[2022-04-09 21:16] VITALS: BP 148/90; O2SAT 98
== END 2022-04-09 20:47 | disposition home or self-care (01) ==
LOC: ER 16:47
DX: M25.532 Pain in left wrist (principal)
CPT/HCPCS: 99283

== ENCOUNTER 2023-03-20 16:55 | Inpatient (IN) | payer BC, SELFPAY ==
--- OUTSIDE RECORDS SUMMARY | 2023-03-20 16:59 | XMS REPORT | Continuity of Care Document ---
Author Name Unknown Address [address] [facility] [place] [address] [facility] thconnect Address [address] [facility] [address] [place] [address] Care Team Providers Care Pulley Maintainer Name Role Phone Wilian VAUGHN, Jose Manuel Lozano Primary Care Physician [phone] SAPPHIRE MG Attending Clinician Unavailable Maria Luisa Malone PTA Attending Clinician Unavail able VAL GUZMAN Attending Clinician UnavailChirag Matson PT, Cheryl Attending Clinician Un available Magnolia BAND TACKERVal Attending Clinician [phone] Doctor Unassigned, Guin Attending Clinician U navailable OLGA Attending Clinician Unavailable JAYDEN_DON Admitting Clinician Unavailable Payers Payer Name Policy Type Policy Number Effective Date Expirati on Date Source [facility] PPO/POS [id number] 2022 00:00:00 Problems Condition Name Condition Details Condition Category Status Onset Date Resolution Date Last Treatment Date Treating Clinician Comments Source Morbid obesity with body mass index of 40.0-49.9 Morbid obesity with body mass index of 40.0-49.9 Disease Active 08-28 00:00: 00 [facility] Dizziness Dizziness Disease Active 08-27 00:00: 00 [facility] Dizziness of unknown cause Dizziness of unknown cause Disease Active 08-27 00:00: 00 [facility] Allergies, Adverse Reactions, Alerts Allergy Name Allergy Type Status Severity Reaction(s) Onset Date Inactive Date Treating Clinician Comments Source NO KNOWN ALLERGIE S Drug Class Active [facility] Social History Social Habit Start Date Stop Date Quantity Comments Source History SDOH Alcohol Binge [facility] History SDOH Social Connections Get Together [facility] History SDOH [facility] Social Connections Membership [facility] History SDOH Social Connections Meetings [facility] Alcohol Frequency 2022-08-28 00:00:00 2022-08-28 00:00:00 2 [facility] History SDOH Alcohol Std Drinks 2022-08-28 00:00:00 2022-08-28 00:00:00 1 [facility] History SDOH Social Connections Phone 2022-08-28 00:00:00 2022-08-28 00:00:00 3 [facility] History SDOH Social Connections Living 2022-08-28 00:00:00 2022-08-28 00:00:00 8 [facility] History SDOH Physical Activity DPW 2022-08-28 00:00:00 2022-08-28 00:00:00 0 [facility] History SDOH Physical Activity MPS 2022-08-28 00:00:00 2022-08-28 00:00:00 0 [facility] History SDOH Financial 2022-08-28 00:00:00 2022-08-28 00:00:00 5 [facility] History SDOH Food Worry 2022-08-28 00:00:00 2022-08-28 00:00:00 1 [facility] History SDOH Food Scarcity 2022-08-28 00:00:00 2022-08-28 00:00:00 1 [facility] History SDOH Transport Med 2022-08-28 00:00:00 2022-08-28 00:00:00 2 [facility] History SDOH Transport Non-Med 2022-08-28 00:00:00 2022-08-28 00:00:00 2 [facility] History SDOH Housing Unable to Pay 2022-08-28 00:00:00 2022-08-28 00:00:00 2 [facility] History SDOH Housing Places Lived 2022-08-28 00:00:00 2022-08-28 00:00:00 1 [facility] History SDOH Housing Homeless Last Year 2022-08-28 00:00:00 2022-08-28 00:00:00 2 [facility] History of Social function 2022-08-28 00:00:00 2022-08-28 00:00:00 [facility] Exposure to SARS-CoV-2 (event) 2022-08-17 00:00:00 2022-08-27 22:00:00 Not sure [facility] Tobacco use and exposure 2022-08-27 00:00:00 2022-08-27 00:00:00 Smokeless tobacco non-user [facility] Sex Ass[birth year] At 1990 00:00:00 1990 00:00:00 [facility] Smoking Status Start Date Stop Date Source Never smoked tobacco [facility] Medications Ordered Medication Name Filled Medication Name Start Date Stop Date Current Medication? Ordering Clinician Indication Dosage Frequency Signature (SIG) Comments Components Source DULoxetine (CYMBALTA) 60 mg capsule 08-28 17:19: 51 Yes 60mg Take 1 capsule by mouth in the morning. [facility] QUEtiapine (SEROQUEL) 25 mg tablet 08-28 17:19: 51 Yes 25mg Take 1 tablet by mouth at bedtime. [facility] QUEtiapine (SEROQUEL) 50 mg tablet 08-28 17:19: 51 Yes 50mg Take 1 tablet by mouth every morning. [facility] DULoxetine (CYMBALTA) 60 mg capsule 08-28 17:19: 51 Yes 60mg Take 1 capsule by mouth in the morning. [facility] QUEtiapine (SEROQUEL) 25 mg tablet 08-28 17:19: 51 Yes 25mg Take 1 tablet by mouth at bedtime. [facility] QUEtiapine (SEROQUEL) 50 mg tablet 08-28 17:19: 51 Yes 50mg Take 1 tablet by mouth every morning. [facility] DULoxetine (CYMBALTA) 60 mg capsule 08-28 17:19: 51 Yes 60mg Take 1 capsule by mouth in the morning. [facility] QUEtiapine (SEROQUEL) 25 mg tablet 08-28 17:19: 51 Yes 25mg Take 1 tablet by mouth at bedtime. [facility] QUEtiapine (SEROQUEL) 50 mg tablet 08-28 17:19: 51 Yes 50mg Take 1 tablet by mouth every morning. [facility] meclizine 12.5 mg tablet 08-28 00:00: 00 Yes [id number] 12.5mg Take 1 tablet by mouth 3 (three) times daily as needed for Dizziness. [facility] meclizine 12.5 mg tablet 08-28 00:00: 00 Yes [id number] 12.5mg Take 1 tablet by mouth 3 (three) times daily as needed for Dizziness. [facility] meclizine 12.5 mg tablet 08-28 00:00: 00 Yes [id number] 12.5mg Take 1 tablet by mouth 3 (three) times daily as needed for Dizziness. [facility] Encounters Start Date/Time End Date/Time Encounter Type Admission Type Attending [facility] Care Department Encounter ID Source 2023-03-04 10:02:39 2023-03-04 10:02:39 Outpatient [facility] [id number] 2022-10-19 13:45:00 2022-10-19 13:45:00 Outpatient SAPPHIRE [facility]IN[facility] [id number] [facility] 2022-09-25 00:00:00 2022-09-25 00:00:00 [facility] Management [facility] [id number] [facility] 2022-09-14 13:00:00 2022-09-14 14:02:32 Outpatient VAL ISAACS [facility] [id number] [facility] 2022-09-14 13:00:00 2022-09-14 14:02:32 Ancillary Visit Cheryl England [facility] [id number] [facility] 2022-09-12 00:00:00 2022-09-12 00:00:00 Patient Secure Msg Doctor Unassigned, Guin [facility] [id number]..[id number] [facility] 2021-05-04 09:02:00 2021-05-04 09:02:00 Outpatient PATEL_MIGDALIA STEIN [place] [id number] Alyx Broussard [facility] Program
[2023-03-20] MEDS ORDERED: OFLOXACIN OPH 0.3%-5 ML BTL OTIC ONE (17:45)
[2023-03-20] MEDS ORDERED: FENTANYL CITR 100 MCG/2 ML ONE (17:48)
[2023-03-20] MEDS ORDERED: NA CHLORIDE 0.9% 1,000 ML ONE ×2 (17:49→22:33)
[2023-03-20] MEDS ORDERED: ONDANSETRON 4 MG/2 ML VIAL ONE (17:49)
[2023-03-20] MEDS ORDERED: NA CHLORIDE 0.9% 50 ML ONE (17:49)
[2023-03-20] MEDS ORDERED: KETOROLAC 30 MG/ML INJ ONE (17:49)
[2023-03-20] MEDS ORDERED: CEFTRIAXONE 2000 MG/VIAL ONE (17:49)
[2023-03-20] MEDS ORDERED: levoFLOXacin 750 MG TAB PO ONE (18:00)
[2023-03-20 18:20] LABS: Absolute Lymphocytes (CBC) 1.1 K/uL (0.7-4.9); Hematocrit 40.2 % (39.6-49.0); Lymphocytes % 6.9 % (15.3-44.8); MCV 84.2 fL (80-100); MPV 8.3 fL (7.6-11.3); Platelets 381 thou/uL (152-406); RBC Red Blood Cell Count 4.77 M/uL (4.33-5.43)
--- NOTE | 2023-03-20 18:29 | RAD REPORT ---
EXAM DESCRIPTION: CT - Head Brain Wo Cont - 03/20/2023 6:11 pm CLINICAL HISTORY: HEADACHE Headache, drowsiness COMPARISON: HEAD BRAIN W O CONTRAST dated 12/26/2008 TECHNIQUE: All CT scans are performed using dose optimization technique as appropriate and may inclu de automated exposure control or mA/KV adjustment according to patient size. FINDINGS: No intracranial hemorrhage, hydrocephalus or extra-axial fluid collection.No areas of brai n edema or evidence of midline shift. Mild fluid is seen in the right middle ear as well as the right mastoid air cell. This may indicate r ight-sided otomastoiditis. Remainder the paranasal sinuses mastoids are clear. The calvarium is intac t. IMPRESSION: No acute intracranial abnormality. Right-sided otomastoiditis is suspected. Suggest direct visualization.
--- NOTE | 2023-03-20 18:30 | RAD REPORT ---
EXAM DESCRIPTION: RAD - Chest Single View - 03/20/2023 5:54 pm CLINICAL HISTORY: COUGH Chest pain. COMPARISON: Chest Pa And Lat (2 Views) dated 01/26/2018; CHEST PA AND LAT 2 VIEW dated 10/20/2013; CH EST SINGLE VIEW dated 12/26/2008; CHEST PA AND LAT 2 VIEW dated 03/25/2008 FINDINGS: Portable technique limits examination quality. The lungs are grossly clear. The heart is upper limit of normal in size. No displaced fractures. IMPRESSION: No acute intrathoracic process suspected.
[2023-03-20] MEDS ORDERED: AMOX/K CLAV 875 MG TAB ONE (18:42)
[2023-03-20 18:46] LABS: Albumin 3.9 g/dL (3.4-5.0); Potassium 3.6 mEq/L (3.5-5.1); Protein, Total 8.9 g/dL (6.4-8.2)
--- NOTE | 2023-03-20 19:01 | EDPHYS ---
Physician Documentation [facility] Name: Morgan Mckeon Age: 32 yrs Sex: Male : 1990 Arrival Date: 03/20/2023 Time: 16:55 Bed 13 Private MD: ED Physician Juan Antonio Newell HPI: 03/20 17:25 This 32 yrs old Male presents to ER via Wheelchair with complaints of fariha Confussion-not responding when spoken too, Near Syncope, Congestion. 17:25 The patient has experienced near-syncope, almost passed out. Onset: The fariha symptoms/episode began/occurred just prior to arrival. Historical: - Allergies: 17:11 No Known Allergies; cm10 - PMHx: 17:11 Anxiety; Bipolar disorder; depressive disorder; Hypertensive disorder; cm10 - Immunization history:: Adult Immunizations up to date. - Social history:: Smoking status: Patient denies any tobacco usage or history of. ROS: 17:27 Constitutional: Negative for fever, chills, and weight loss, Eyes: Negative for injury, fariha pain, redness, and discharge, Neck: Negative for injury, pain, and swelling, Cardiovascular: Negative for chest pain, palpitations, and edema, Respiratory: Negative for shortness of breath, cough, wheezing, and pleuritic chest pain, Abdomen/GI: Negative for abdominal pain, nausea, vomiting, diarrhea, and constipation, Back: Negative for injury and pain, : Negative for injury, bleeding, discharge, and swelling, MS/Extremity: Negative for injury and deformity, Skin: Negative for injury, rash, and discoloration, Psych: Negative for depression, anxiety, suicide ideation, homicidal ideation, and hallucinations, Allergy/Immunology: Negative for hives, rash, and allergies, Endocrine: Negative for neck swelling, polydipsia, polyuria, polyphagia, and marked weight changes, Hematologic/Lymphatic: Negative for swollen nodes, abnormal bleeding, and unusual bruising, 17:27 Neuro: Positive for near syncope, Exam: 17:27 Constitutional: This is a well developed, well nourished patient who is awake, alert, fariha and in no acute distress. Head/Face: Normocephalic, atraumatic. Eyes: Pupils equal round and reactive to light, extra-ocular motions intact. Lids and lashes normal. Conjunctiva and sclera are non-icteric and not injected. Cornea within normal limits. Periorbital areas with no swelling, redness, or edema. Neck: Trachea midline, no thyromegaly or masses palpated, and no cervical lymphadenopathy. Supple, full range of motion without nuchal rigidity, or vertebral point tenderness. No Meningismus. Chest/axilla: Normal chest wall appearance and motion. Nontender with no deformity. No lesions are appreciated. Cardiovascular: Regular rate and rhythm with a normal S1 and S2. No gallops, murmurs, or rubs. Normal PMI, no JVD. No pulse deficits. Respiratory: Lungs have equal breath sounds bilaterally, clear to auscultation and percussion. No rales, rhonchi or wheezes noted. No increased work of breathing, no retractions or nasal flaring. Abdomen/GI: Soft, non-tender, with normal bowel sounds. No distension or tympany. No guarding or rebound. No evidence of tenderness throughout. Back: No spinal tenderness. No costovertebral tenderness. Full range of motion. Male : Normal genitalia with no discharge or lesions. Skin: Warm, dry with normal turgor. Normal color with no rashes, no lesions, and no evidence of cellulitis. MS/ Extremity: Pulses equal, no cyanosis. Neurovascular intact. Full, normal range of motion. Neuro: Awake and alert, GCS 15, oriented to person, place, time, and situation. Cranial nerves II-XII grossly intact. Motor strength 5/5 in all extremities. Sensory grossly intact. Cerebellar exam normal. Normal gait. Psych: Awake, alert, with orientation to person, place and time. Behavior, mood, and affect are within normal limits. 17:27 ENT: External ear(s): cellulitis, erythema, that is moderate, of the right ear canal, TM's: dullness, erythema, loss of bony landmarks, that is pronounced, on the right, Vital Signs: 17:08 BP 156 / 96; Pulse 78; Resp 18; Temp 98.7; Pulse Ox 94% on R/A; Weight 142.88 kg; cm10 Height 6 ft. 0 in. ; Pain 10/10; 17:30 BP 145 / 76; Pulse 70; Resp 18; Pulse Ox 95% on R/A; db 18:20 BP 145 / 78; Pulse 65; Resp 16; Pulse Ox 90% on R/A; db 18:30 BP 134 / 81; Pulse 74; Resp 16; Pulse Ox 97% on 2 lpm NC; db 19:35 BP 149 / 98; Pulse 76; Resp 18 S; Pulse Ox 95% on 2 lpm NC; ha1 20:27 BP 164 / 91; Pulse 70; Resp 18 S; Pulse Ox 97% on R/A; ha1 21:39 BP 152 / 90; Pulse 74; Resp 17 S; Pulse Ox 97% on R/A; ha1 17:08 Body Mass Index 42.72 (142.88 kg, 182.88 cm) cm10 17:08 Pain Scale: Adult cm10 18:20 PLACED ON NC 2 L db MDM: 17:03 [facility]. [facility] 17:30 Differential diagnosis: otitis media, otitis externa, ruptured TM. Data reviewed: [facility] signs, nurses notes, lab test result(s), radiologic studies, CT scan, plain films. Consideration of Admission/Observation Escalation of care including admission/observation considered. I considered the following discharge prescriptions or medication management in the emergency department Medications were administered in the Emergency Department. See MAR. Independent interpretation of the following test(s) in the Emergency Department X-Ray: My interpretation is cxr. Test considered but Not performed: MRI: no brain mri. Historians other than the Patient: pt well informed. Care significantly affected by the following chronic conditions: Hypertension, Obesity, anxiety , bipolar. 03/20 17:19 Order name: CBC with Diff; Complete Time: 18:52 [facility] 03/20 17:19 Order name: Comprehensive Metabolic Panel [facility] 03/20 17:19 Order name: Blood Culture Adult (2) [facility] 03/20 17:19 Order name: Lactate w/ 2H reflex if indic.; Complete Time: 18:52 [facility] 03/20 17:23 Order name: COVID-19/FLU A+B/RSV [facility] 03/20 20:16 Order name: CBC with Automated Diff EDMS 03/20 20:16 Order name: CBC with Automated Diff EDMS 03/20 20:16 Order name: CBC with Automated Diff EDMS 03/20 17:19 Order name: CT Head Brain wo Cont; Complete Time: 18:52 [facility] 03/20 17:45 Order name: Chest Single View XRAY; Complete Time: 18:52 [facility] 03/20 20:16 Order name: CONS Physician Consult EDMS Administered Medications: 17:50 Drug: NS 0.9% IV 1000 ml IV at 1 bolus Per protocol; 1000 mL bolus Route: IV; Rate: 1 db bolus; Site: right antecubital; 17:55 Drug: Rocephin IV 2 grams IV at per protocol once; Given slow IV push per pharmarcy db instructions Route: IV; Rate: per protocol; Site: right antecubital; 17:57 Drug: Ondansetron IVP 4 mg IVP once; over 2 minutes Route: IVP; Site: right antecubital;db 17:58 Drug: Ofloxacin Ophthalmic Drops 0.3 % 4 drops Ophthalmic once; to right ear {Note: db RIGHT EAR.} Route: Ophthalmic; Site: right eye; 17:59 Drug: Ketorolac IVP 15 mg IVP once Route: IVP; Site: right antecubital; db 17:59 Drug: fentaNYL (PF) IVP 50 mcg IVP once Route: IVP; Site: right antecubital; db 17:59 Drug: LevOfloxacin PO 750 mg PO once Route: PO; db 18:30 Drug: Amoxicillin-Clavulanate PO 875 mg PO once Route: PO; db 19:00 Follow up: Response: No adverse reaction ha1 Disposition Summary: 03/20/23 19:00 Hospitalization Ordered Notes: Hospitalization Status: Inpatient Admission fariha Provider: Mariama Benedict cha Location: Telemetry/MedSurg (Inpatient) fariha Condition: Fair fariha Problem: new fariha Symptoms: have improved fariha Bed/Room Type: [facility] Room Assignment: 206(03/21/23 01:38) [id number] Diagnosis - Acute suppurative otitis media fariha - Acute mastoiditis - right otomastoiditis fariha - Fever, unspecified fariha - Elevated white blood cell count [facility] Discharge Instructions: - Discharge Summary Sheet fariha - Otitis Media, Adult fariha - Otitis Externa fariha - Otitis Externa, [id number] fariha - Otitis Media, Adult, [id number] [facility] Forms: - Medication Reconciliation Form fariha - SBAR form fariha - Leadership Thank You Letter [facility] Prescriptions: - Augmentin 875-125 mg Oral Tablet - take 1 tablet ORAL route every 12 hours for 10 days; 20 tablet; Refills: 0, fariha Product Selection Permitted - Ciprodex 0.3-0.1 % Otic drops, suspension - instill 4 drops OTIC route every 12 hours for 7 days , for ears ONLY; 10 fariha milliliter; Refills: 0, Product Selection Permitted - levofloxacin 750 mg Oral tablet - take 1 tablet ORAL route once daily; 7 tablet; Refills: 0, Product Selection fariha Permitted Signatures: Dispatcher [employer] Juan Antonio Onofre MD MD cha Benton, Danielle, RN RN db Jessica Betancourt RN RN 10 Inna Souza [facility] Kristine Zhao RN ha1 Corrections: (The following items were deleted from the chart) 17:55 17:20 Chest Pa And Lat (2 Views)+RAD.[email or web address].BRZ ordered. [facility] 03/21 01:38 03/20 19:00 fariha [email or web address]
--- NOTE | 2023-03-20 19:01 | ER ---
Nurse's Notes [facility] Name: Morgan Mckeon Age: 32 yrs Sex: Male : 1990 Arrival Date: 03/20/2023 Time: 16:55 Bed 13 Private MD: Diagnosis: Acute suppurative otitis media;Acute mastoiditis-right otomastoiditis;Fever, unspecified;Elevated white blood cell count Presentation: 03/20 17:08 Chief complaint: Patient states: Right ear pain X3 days and headache onset this cm10 morning. Pt's states that patient is on ABX for ear infection and today when she got home from work, pt was acting confused and was slow to respond. Pt A\T\Ox4 in triage. Coronavirus screen: Vaccine status: Patient reports receiving the 2nd dose of the covid vaccine. Client denies travel out of the [place] in the last 14 days. Ebola Screen: Patient denies travel to an Ebola-affected area in the 21 days before illness onset. No symptoms or risks identified at this time. Initial Sepsis Screen: Does the patient meet any 2 criteria? No. Patient's initial sepsis screen is negative. Does the patient have a suspected source of infection? No. Patient's initial sepsis screen is negative. Risk Assessment: Do you want to hurt yourself or someone else? Patient reports no desire to harm self or others. Onset of symptoms was March 20, 2023. 17:08 Method Of Arrival: Wheelchair cm10 17:08 Acuity: JOSE 3 cm10 Historical: - Allergies: 17:11 No Known Allergies; cm10 - PMHx: 17:11 Anxiety; Bipolar disorder; depressive disorder; Hypertensive disorder; cm10 - Immunization history:: Adult Immunizations up to date. - Social history:: Smoking status: Patient denies any tobacco usage or history of. Screenin:09 [facility] ED Fall Risk Assessment (Adult) History of falling in the last 3 months, db including since admission No falls in past 3 months (0 pts) Confusion or Disorientation Yes (5 pts) Intoxicated or Sedated No (0 pts) Impaired Gait No (0 pts) Mobility Assist Device Used No (0 pt) Altered Elimination No (0 pt) Score/Fall Risk Level 3 or more points = High Risk Oriented to surroundings, Maintained a safe environment. Abuse screen: Denies threats or abuse. Denies injuries from another. Nutritional screening: No deficits noted. Tuberculosis screening: No symptoms or risk factors identified. Assessment: 17:16 Reassessment: Patient appears in no apparent distress at this time. Patient and/or db family updated on plan of care and expected duration. Pain level reassessed. Patient is alert, oriented x 3, equal unlabored respirations, skin warm/dry/pink. General: Appears in no apparent distress. comfortable, Behavior is calm, cooperative. Pain: Complains of pain in face. Neuro: Level of Consciousness is awake, alert, obeys commands, Oriented to person, place, time, situation. Respiratory: Airway is patent Respiratory effort is even, unlabored, Respiratory pattern is regular, symmetrical. EENT: Reports nasal congestion nasal discharge. 18:09 Reassessment: Patient appears in no apparent distress at this time. Patient and/or db family updated on plan of care and expected duration. Pain level reassessed. Patient is alert, oriented x 3, equal unlabored respirations, skin warm/dry/pink. PT TO CT. SPOUSE AT BEDSIDE. 19:34 General: Appears comfortable, Behavior is calm, cooperative. Pain: Denies pain. Neuro: ha1 Level of Consciousness is awake, alert, Oriented to person, place, time, situation, Reports weakness. Cardiovascular: Heart tones S1 S2 present Capillary refill < 3 seconds Patient's skin is warm and dry. Cardiovascular: Patient's skin is warm and dry. Respiratory: Airway is patent Respiratory effort is even, unlabored, Respiratory pattern is regular, symmetrical. GI: Abdomen is round non-distended. Derm: Skin is pink, warm \T\ dry. Musculoskeletal: Circulation, motion, and sensation intact. Range of motion: intact in all extremities. 20:27 Reassessment: Patient and/or family updated on plan of care and expected duration. Pain ha1 level reassessed. Patient is alert, oriented x 3, equal unlabored respirations, skin warm/dry/pink. 20:58 Reassessment: cell# [phone]. ha1 21:38 Reassessment: Patient and/or family updated on plan of care and expected duration. Pain ha1 level reassessed. Patient is alert, oriented x 3, equal unlabored respirations, skin warm/dry/pink. 22:30 Reassessment: Patient and/or family updated on plan of care and expected duration. Pain ha1 level reassessed. Patient is alert, oriented x 3, equal unlabored respirations, skin warm/dry/pink. 03/21 02:12 Reassessment: report given to EITAN Gaona. ha1 Vital Signs: 03/20 17:08 BP 156 / 96; Pulse 78; Resp 18; Temp 98.7; Pulse Ox 94% on R/A; Weight 142.88 kg; cm10 Height 6 ft. 0 in. ; Pain 10/10; 17:30 BP 145 / 76; Pulse 70; Resp 18; Pulse Ox 95% on R/A; db 18:20 BP 145 / 78; Pulse 65; Resp 16; Pulse Ox 90% on R/A; db 18:30 BP 134 / 81; Pulse 74; Resp 16; Pulse Ox 97% on 2 lpm NC; db 19:35 BP 149 / 98; Pulse 76; Resp 18 S; Pulse Ox 95% on 2 lpm NC; ha1 20:27 BP 164 / 91; Pulse 70; Resp 18 S; Pulse Ox 97% on R/A; ha1 21:39 BP 152 / 90; Pulse 74; Resp 17 S; Pulse Ox 97% on R/A; ha1 17:08 Body Mass Index 42.72 (142.88 kg, 182.88 cm) cm10 17:08 Pain Scale: Adult cm10 18:20 PLACED ON NC 2 L db ED Course: 16:59 Patient arrived in ED. im 17:02 Juan Antonio Newell MD is Attending Physician. fariha 17:11 Triage completed. cm10 17:12 Arm band placed on Patient placed in an exam room, on a stretcher. cm10 17:15 Ramila Miranda, EITAN is Primary Nurse. db 17:45 First set of blood cultures drawn by me, Second set of blood cultures drawn by me. ds4 17:46 Inserted saline lock: 20 gauge in right forearm, using aseptic technique. Blood ds4 collected. 17:55 Chest Single View XRAY In Process Unspecified. EDMS 18:09 Patient has correct armband on for positive identification. Bed in low position. Call db light in reach. Side rails up X 1. Pulse ox on. NIBP on. 18:12 CT Head Brain wo Cont In Process Unspecified. EDMS 18:57 Mariama Benedict MD is Hospitalizing Provider. [facility] 03/21 02:38 No provider procedures requiring assistance completed. Patient admitted, IV remains in ha1 place. 02:50 Provided Education on: need for admit . ha1 Administered Medications: 03/20 17:50 Drug: NS 0.9% IV 1000 ml IV at 1 bolus Per protocol; 1000 mL bolus Route: IV; Rate: 1 db bolus; Site: right antecubital; 17:55 Drug: Rocephin IV 2 grams IV at per protocol once; Given slow IV push per pharmarcy db instructions Route: IV; Rate: per protocol; Site: right antecubital; 17:57 Drug: Ondansetron IVP 4 mg IVP once; over 2 minutes Route: IVP; Site: right antecubital;db 17:58 Drug: Ofloxacin Ophthalmic Drops 0.3 % 4 drops Ophthalmic once; to right ear {Note: db RIGHT EAR.} Route: Ophthalmic; Site: right eye; 17:59 Drug: Ketorolac IVP 15 mg IVP once Route: IVP; Site: right antecubital; db 17:59 Drug: fentaNYL (PF) IVP 50 mcg IVP once Route: IVP; Site: right antecubital; db 17:59 Drug: LevOfloxacin PO 750 mg PO once Route: PO; db 18:30 Drug: Amoxicillin-Clavulanate PO 875 mg PO once Route: PO; db 19:00 Follow up: Response: No adverse reaction 1 Medication: 20:58 VIS not applicable for this client. 1 Outcome: 19:00 Decision to Hospitalize by Provider. [facility] 03/21 02:41 Admitted to Med/surg accompanied by tech, via stretcher, room 206, with chart, Report ha1 called to EITAN Gaona Condition: stable Discharge instructions given to patient, Instructed on the need for admit, Demonstrated understanding of instructions, 02:51 Patient left the ED. ha1 Signatures: Dispatcher [employer] EDJuan Antonio Vazquez MD MD cha Swanson, Donovan ds4 Kristine Zhao RN RN ha1 Ramila Miranda RN RN db Archana Rice Clarissa, RN RN cm10
[2023-03-20 19:03] LABS: Bilirubin Total 2.6 mg/dL (0.2-1.0)
[2023-03-20] MEDS ORDERED: ONDANSETRON 4 MG/2 ML VIAL IV PRN (20:10)
--- NOTE | 2023-03-20 20:10 | P.HP ---
Certification for Inpatient Patient admitted to: Inpatient With expected LOS: >2 Midnights Patient will require the following post-hospital care: None Practitioner: I am a practitioner with admitting privileges, knowledge of patient current condition, hospital course, and medical plan of care. Services: Services provided to patient in accordance with Admission requirements found in Title 42 Section 412.3 of the Code of Federal Regulations Patient History Date of Service: 03/21/23 Reason for admission: Otomastoiditis. History of Present Illness: 32-year-old male patient was medical history significant for depression and morbid obesity was evaluated for episode of confusion and grogginess. He was brought into the ED for this episode and he had a CT of the head that showed otomastoiditis and concerns for significant infection. He was discussed with ENT surgeon Dr. Shin who recommended inpatient care and IV antibiotic therapy. Patient continues to be lethargic and groggy. Other pertinent finding include elevated white cell of 16,000 and mild hyponatremia with a sodium of 131. No report of nausea, vomiting, diarrhea prior to encounter. Allergies No Known Allergies Allergy (Verified 08/13/12 18:29) Review of Systems General: Weakness, Malaise, As per HPI Eyes: Unremarkable ENT: Ear Pain Respiratory: Unremarkable Cardiovascular: Unremarkable Gastrointestinal: Unremarkable Genitourinary: Unremarkable Musculoskeletal: Unremarkable Physical Examination - Physical Exam General: Delirious HEENT: Atraumatic, Normocephalic Neck: Supple Respiratory: Normal air movement Cardiovascular: Regular rate/rhythm, Normal S1 S2 Gastrointestinal: Soft and benign Musculoskeletal: No swelling - Studies Laboratory Data (last 24 hrs) 03/20/23 03/20/23 17:45 17:45 WBC 16.40 H Hgb 13.4 L Hct 40.2 Plt Count 381 Sodium 131 L Potassium 3.6 BUN 8 Creatinine 0.88 Glucose 143 H Total Bilirubin 2.6 H AST 15 ALT 49 Alkaline Phosphatase 83 Assessment and Plan - Plan Otomastoiditis: CT of the head shows significant findings of this abnormality and recommendation for direct visualization was made. ENT surgeon has been consulted. Continue empiric antibiotic therapy with Unasyn and follow cultures for adjustment as needed. Continue pain control with as needed Dilaudid. Continue IV fluid for supportive care Hyponatremia: Sodium is low at 131. Will replete with saline infusion and monitor levels. Prophylaxis: Lovenox for DVT prophylaxis. CODE STATUS: Full code Disposition: We will treat his significant infection and will be discharged once he is cleared by ENT surgeon. - Advance Directives Does patient have a Living Will: No Does patient have a Durable POA for Healthcare: No
[2023-03-20] MEDS ORDERED: MORPHINE 2 MG/ML SYR IV PRN (20:15)
[2023-03-20] MEDS ORDERED: TRAMADOL HCL 50 MG TAB PO PRN (20:15)
[2023-03-20] MEDS: NA CHLORIDE 0.9% 1,000 ML IV SCH (21:00)
[2023-03-20] MEDS ORDERED: ACETAMINOPHEN 325 MG TABLET ONE (23:10)
[2023-03-20] MEDS: ACETAMINOPHEN 325 MG TABLET PO PRN (23:44)
[2023-03-21] MEDS: AMPICILLIN/SULBACT 1.5 GM in NA CHLORIDE 0.9% 100 ML IVPB SCH ×2 (01:00→06:01)
[2023-03-21] MEDS ORDERED: AMPICILLIN/SULBACT 1.5GM VIAL ONE (01:15)
[2023-03-21 03:17] LABS: SARS-COV-2 RT PCR NEGATIVE (NEGATIVE)
[2023-03-21 03:25] VITALS: BMI 42.7
[2023-03-21] MEDS: NA CHLORIDE 0.9% 1,000 ML IV SCH ×2 (03:31→18:26)
[2023-03-21 04:40] LABS: Hematocrit 37.8 % (39.6-49.0); Lymphocytes % 14.3 % (15.3-44.8); MCV 84.9 fL (80-100); MPV 8.3 fL (7.6-11.3); Platelets 357 thou/uL (152-406); RBC Red Blood Cell Count 4.45 M/uL (4.33-5.43)
[2023-03-21 06:19] VITALS: O2SAT 97
--- NOTE | 2023-03-21 08:03 | P.CNS ---
Date of Consult: 03/21/23 Reason for consultation otomastoiditis History of present illness: Patient presented to the emergency room and was evaluated including a CT of the head that demonstrated partial opacification of the right mastoid. The patient reports having right ear pain and was concern for a ruptured eardrum. Still complains of significant generalized headache. In attempting to obtain additional information in regards to history of chronic ear disease or other pertinent history, the patient appears lethargic and confused and is not significantly answering questions. There is no family at the bedside available for corroboration. Spoke with the patient's nurse who reported that he has been confused and difficult to obtain history from him since his admission. She is not aware of what his baseline function is. Past medical history: Difficult to obtain due to patient's confusion Allergies: No known allergies on review of medical record Physical exam: The patient is sitting spontaneously at the bedside. He appears awake but confused. As tissue paper in the luz marina of the right ear that shows some serosanguineous drainage on removal. Despite inquiry at the nurses station, no otoscope is available. On gross examination, the patient has expressive movement of the right side of the face but little movement to the left side of the face. When trying to instruct the patient in regards to smiling and elevating the eyebrows in an attempt to further assess facial movement, it is unclear as to whether he is unable to perform these or if his mental status is compromising his ability to comply with instructions. No Proptosis of the ear. No significant palpable soft tissue edema overlying the mastoids. No discernible asymmetry in regards to tenderness overlying the mastoid. No visible cellulitis overlying the right mastoid. Data: CT of the head performed 03/20/2023 demonstrates partial opacification of the right mastoid air cells with opacification of the right middle ear. The left mastoid and middle ear appear unremarkable. He has some scattered opacification of the left frontal recess and right ethmoid air cells with bilateral luz marina bullosa. The septum is midline. The sphenoid and maxillary sinuses appear unremarkable. Laboratory studies are reviewed and indicate leukocytosis Assessment/Recommendations: 1. Confusion - overall, I cannot attribute his degree of confusion to the ear findings. I would consider workup for other causes of delirium. 2. Acute otitis media with spontaneous rupture of the TM, right -attempt of diagnosis based on radiographic findings and visible drainage. Start ofloxin ear drops 3. Possible left facial paralysis -based on exam, I cannot confirm the patient's left facial function. This is contralateral to the ear and mastoid findings and not likely directly related. Reassessment and exam when patient is less groggy may be helpful.
[2023-03-21] MEDS ORDERED: ENOXAPARIN 40 MG/0.4 ML SQ SCH (09:00)
[2023-03-21] MEDS: CEFTRIAXONE 2,000 MG in NA CHLORIDE 0.9% 100 ML IV SCH ×2 (10:30→20:03)
[2023-03-21] MEDS ORDERED: KETOROLAC 30 MG/ML INJ IV ONE (11:45)
[2023-03-21] MEDS: METHYLPREDNISOLONE 125 MG INJ IV SCH ×2 (11:53→17:03)
[2023-03-21 13:21] LABS: Barbiturates NEGATIVE (NEGATIVE); Benzodiazepines NEGATIVE (NEGATIVE); Cocaine NEGATIVE (NEGATIVE); METHAMPHETAM NEGATIVE (NEGATIVE); Methadone NEGATIVE (NEGATIVE); Opiates NEGATIVE (NEGATIVE); Phencyclidine NEGATIVE (NEGATIVE); THC Cannibis NEGATIVE (NEGATIVE)
[2023-03-21] MEDS: NICOTINE 21 MG/PAT TD SCH (18:26)
[2023-03-21 19:16] LABS: Absolute Lymphocytes (CBC) 0.9 K/uL (0.7-4.9); Hematocrit 38.2 % (39.6-49.0); Lymphocytes % 7.1 % (15.3-44.8); MCV 84.2 fL (80-100); MPV 8.1 fL (7.6-11.3); Platelets 383 thou/uL (152-406); RBC Red Blood Cell Count 4.54 M/uL (4.33-5.43)
[2023-03-21 19:23] LABS: Protime INR 1.22
[2023-03-21 20:22] LABS: ALT/SGPT 56 U/L (16-61); AST/SGOT 30 U/L (15-37); Albumin 3.3 g/dL (3.4-5.0); Alkaline Phosphatase 82 U/L (45-117); BUN Blood Urea Nitrogen 11 mg/dL (7-18); Bicarbonate 23 mEq/L (21-32); Bilirubin Direct 0.3 mg/dL (0-0.2); Bilirubin Total 0.5 mg/dL (0.2-1.0); Glomerular Filtration Rate 85 ml/min (=/>90); Glucose Level 177 mg/dL (74-106); Potassium 3.6 mEq/L (3.5-5.1); Sodium Level 132 mEq/L (136-145)
[2023-03-21 20:36] LABS: White Blood Cell Scan OK (OK)
[2023-03-21 20:37] LABS: Blood Morphology Comment NOT SEEN (NOT SEEN); Platelet Estimate ADEQ
[2023-03-21] MEDS: PROPRANOLOL HCL 10 MG TAB PO SCH (21:00)
[2023-03-21] MEDS: ACETAMINOPHEN 325 MG TABLET PO PRN (21:58)
[2023-03-22 01:04] LABS: Specific Gravity 1.025 (1.005-1.030); Urine Bacteria None Seen /HPF (<20); Urine Bilirubin NEGATIVE (Negative); Urine Blood 1+ (Negative); Urine Clarity Clear (Clear); Urine Color Yellow (Yellow); Urine Glucose NEGATIVE (Negative); Urine Mucus Slight /HPF (None Seen); Urine Protein TRACE (Negative); Urine Urobilinogen Normal (Normal)
[2023-03-22] MEDS: METHYLPREDNISOLONE 125 MG INJ IV SCH ×3 (01:39→12:11)
[2023-03-22 02:29] LABS: Absolute Lymphocytes (CBC) 1.8 K/uL (0.7-4.9); Hematocrit 36.7 % (39.6-49.0); Lymphocytes % 12.7 % (15.3-44.8); MPV 8.5 fL (7.6-11.3); Platelets 389 thou/uL (152-406); RBC Red Blood Cell Count 4.36 M/uL (4.33-5.43)
[2023-03-22] MEDS: NA CHLORIDE 0.9% 1,000 ML IV SCH (06:08)
[2023-03-22] MEDS: CEFTRIAXONE 2,000 MG in NA CHLORIDE 0.9% 100 ML IV SCH (08:45)
[2023-03-22] MEDS: NICOTINE 21 MG/PAT TD SCH (08:46)
[2023-03-22] MEDS: PROPRANOLOL HCL 10 MG TAB PO SCH (08:46)
[2023-03-22] MEDS ORDERED: PALIPERIDONE 3 MG PO SCH (09:00)
[2023-03-22] MEDS ORDERED: HOME MED 1 EA UNK (Escitalopram Oxalate [Lexapro] 5 MG Tablet) PO SCH (09:00)
[2023-03-22] MEDS ORDERED: NICOTINE 21 MG/PAT TD SCH (09:00)
--- NOTE | 2023-03-22 10:21 | RAD REPORT ---
EXAM DESCRIPTION: MRI - Brain W/Wo Cont - 03/22/2023 10:01 am CLINICAL HISTORY: AMS Headache, drowsiness COMPARISON: Head Brain Wo Cont dated 03/20/2023 TECHNIQUE: Multi-sequence, multiplanar MR imaging of the brain was performed with contrast. FINDINGS: There is significant edema and cortical thickening involving the right temporal lobe exten ding superiorly. Post-contrast enhancement is seen in this region extending throughout sulci of the r ight temporal lobe and regional meninges. This is most compatible with meningitis with significant ce rebritis. The areas of brain edema noted show significant diffusion restriction. There is mild midline shift from right to left measuring 5 mm. Contrast opacification is seen in the right sigmoid and transverse sinus. However there is a lack of central contrast opacification in the posterior superior sagittal sinus which could indicate thrombus . Opacification of the right mastoid air cell noted. 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 5 mm right to left midline shift is present. 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 Opacification of the right mastoid air cell presumably related to infection/ mastoiditis. The second floor nurse/practitioner caring for the patient was informed of these results 03/22/2023 1 0 a.m. by telephone.
[2023-03-22] MEDS ORDERED: levETIRAcetam 500 MG in NA CHLORIDE 0.9% 100 ML IV SCH (10:45)
[2023-03-22] MEDS ORDERED: HEPARIN/D5W 25,000 UNIT/500 ML BAG IV PRN (11:00)
[2023-03-22] MEDS ORDERED: VANCOMYCIN 2 GM in NA CHLORIDE 0.9% 500 ML IVPB ONE (11:00)
[2023-03-22] MEDS ORDERED: levETIRAcetam 1,000 MG in NA CHLORIDE 0.9% 100 ML IV SCH (12:00)
[2023-03-22] MEDS: ACETAMINOPHEN 325 MG TABLET PO PRN (12:10)
[2023-03-22 12:37] VITALS: BP 175/96; TEMP 99.5
--- NOTE | 2023-03-22 12:59 | P.PN ---
Subjective Date of Service: 03/21/23 Patient is awake but confused. According to notes from yesterday patient had grogginess and confusion. Spoke to the at bedside and she feels like it may be related to medication that he is taken. Order MRI of the brain along with lumbar puncture. Patient has some left-sided facial droop and his left upper extremity is weak. His left lower extremity is also a little weak. His symptoms are concerning for a CVA. Out of the window for tPA. CT scan was done which was unremarkable except for findings of mastoiditis. Could be toxic encephalopathy. MRI ordered. Will broaden antibiotic coverage and change Unasyn to Rocephin. Will also start him on IV steroids as the symptoms could be related to increased intracranial pressure. Unsure as to the etiology but concerning for meningitis/encephalitis VS. CVA Neurology consultation in place. Appreciate Neurology input. Patient bilirubin is elevated we will repeat liver function testing. Ammonia level and acetaminophen level pending. Review of Systems is unable to be obtained Physical Examination - Vital Signs Temperature: 99.5 F Blood Pressure: 175/96 Pulse: 66 Respirations: 16 Pulse Ox (%): 96 - Physical Exam General: Alert, Confused HEENT: Other (left-sided facial weakness) Respiratory: Clear to auscultation bilaterally Cardiovascular: Regular rate/rhythm Gastrointestinal: Normal bowel sounds, Soft and benign, Non-distended Musculoskeletal: No clubbing Neurological: Other (confused), Abnormal gait, Abnormal speech, Abnormal strength, Abnormal cranial nerve function Assessment & Plan - Problems (Diagnosis) (1) AMS (altered mental status) Current Visit: Yes Status: Acute (2) Toxic encephalitis and encephalomyelitis Current Visit: Yes Status: Acute (3) Meningitis Current Visit: Yes Status: Acute (4) Mastoiditis Current Visit: Yes Status: Acute (5) Left-sided weakness Current Visit: Yes Status: Acute (6) Elevated bilirubin Current Visit: Yes Status: Acute (7) Leukocytosis Current Visit: Yes Status: Acute (8) Hyponatremia Current Visit: Yes Status: Acute - Plan Workup pending for altered mental status. Most likely infectious etiology. CT scan with no findings of any significant abnormalities except for mastoiditis. Progression of mastoiditis is concerning. Continue on IV antibiotics and broaden coverage to Rocephin. May need lumbar puncture. Awaiting for MRI imaging. Secondary to neuro's signs will get MRI prior to LP. Increased inflammatory status and patient will get started on IV steroids. Patient's bilirubin also elevated. Patient could have some underlying liver pathology. Patient apparently may have taken a lot of medications according to family for his ear infection. Will repeat his bilirubin. Check acetaminophen level. Check ammonia level. Hyponatremia-sodium is 130. Could explain some mild confusion. Gently hydrate. - Advance Directives Does patient have a Living Will: No Does patient have a Durable POA for Healthcare: No - Code Status/Comfort Care Code Status Assessed: Yes Code Status: Full Code
[2023-03-22] MEDS ORDERED: HEPARIN/D5W 25,000 UNIT/500 ML BAG IV SCH (13:00)
[2023-03-22] MEDS ORDERED: ACYCLOVIR IVPB SCH (17:00)
[2023-03-22] MEDS ORDERED: NA CHLORIDE 0.9% IVPB SCH (17:00)
[2023-03-22] MEDS ORDERED: Mupirocin NASAL 2 APPL/1 GM TUBE NAS SCH (21:00)
== END 2023-03-22 16:00 | disposition short-term general hospital (02) | DRG 152 ==
LOC: ER 16:55 → ERHOLD 20:10 → 2ND 03-21 02:36
PROVIDERS: ADMIT Internal Medicine Nephrology; ATTEND Hospitalist
DX: H70.091 Acute mastoiditis with other complications, right ear (principal); G93.41 Metabolic encephalopathy; E87.1 Hypo-osmolality and hyponatremia; Z68.41 Body mass index [BMI] 40.0-44.9, adult; F31.9 Bipolar disorder, unspecified; E66.01 Morbid (severe) obesity due to excess calories; I10 Essential (primary) hypertension; R51.9 Headache, unspecified; Z11.52 Encounter for screening for COVID-19
CPT/HCPCS: 0241U; 36415; 70450; 70553; 71045; 80053; 80143; 80307; 81001; 82140; 82248; 83605; 84145; 85025; 85610; 85730; 87040; 96374; 96375; 99285; A9577; J0133; J0295; J0696; J1650; J1953; J2405; J2930; J3010; J7030; J7040

== ENCOUNTER 2023-07-27 14:32 | Emergency (ER) | payer BC ==
[2023-07-27] MEDS ORDERED: NA CHLORIDE 0.9% 1,000 ML ONE (15:47)
[2023-07-27 16:06] LABS: Absolute Basophils 0.1 K/uL (0-0.5); Absolute Eosinophils 0.4 K/uL (0-0.5); Absolute Monocytes 0.9 K/uL (0.1-1.3); Absolute Neutrophil 8.2 K/uL (1.8-8.0); Basophils % 1.1 % (0-1.3); Eosinophils % 3.5 % (0-4.4); Hematocrit 42.2 % (39.6-49.0); Lymphocytes % 23.7 % (15.3-44.8); MCH 27.9 pg (27.0-35.0); MCHC 33.3 g/dL (32.0-36.0); MCV 83.7 fL (80-100); MPV 8.8 fL (7.6-11.3); Monocytes % 7.1 % (3.3-12.3); Neutrophils % 64.6 % (41.7-73.7); Platelets 414 thou/uL (152-406); RBC Red Blood Cell Count 5.04 M/uL (4.33-5.43); Red Cell Distribution Width 13.1 % (12.1-15.2)
[2023-07-27 16:11] LABS: Sqamous Epithelial None Seen /HPF (None Seen); Urine Bacteria <20 /HPF (<20); Urine Bilirubin NEGATIVE (Negative); Urine Blood Negative (Negative); Urine Clarity Clear (Clear); Urine Color Yellow (Yellow); Urine Culture Reflex Order NOT NEEDED; Urine Glucose NEGATIVE (Negative); Urine Ketones NEGATIVE (Negative); Urine Micro Reflex YN NO BILL MICROSCOPIC; Urine Mucus 2+ /HPF (None Seen); Urine Nitrite NEGATIVE (Negative); Urine Protein TRACE (Negative); Urine RBC <5 /HPF (None Seen); Urine Urobilinogen Normal (Normal); Urine WBC <5 /HPF (<5); Urine pH 5.5 (5.0-7.0)
[2023-07-27 16:17] LABS: Albumin 4.1 g/dL (3.4-5.0); Albumin/Globulin Ratio 1.1 (1.1-1.8); Anion Gap 9.2 mEq/L (5.0-15.0); Bilirubin Direct 0.1 mg/dL (0-0.2); Bilirubin Indirect, Calculated 0.6 mg/dL (0.2-0.8); Bilirubin Total 0.7 mg/dL (0.2-1.0); Globulin 3.8 g/dL (2.3-3.5); Potassium 4.2 mEq/L (3.5-5.1); Protein, Total 7.9 g/dL (6.4-8.2); Troponin High Sensitivity 11.9 pg/mL (<58.9)
--- NOTE | 2023-07-27 16:28 | RAD REPORT ---
EXAM DESCRIPTION: CT - Head Brain Wo Cont - 07/27/2023 3:52 pm CLINICAL HISTORY: CONFUSED COMPARISON: Head Brain Wo Cont dated 03/20/2023; HEAD BRAIN W O CONTRAST dated 12/26/2008; Brain W/Wo Cont dated 03/22/2023 TECHNIQUE: Noncontrast head CT images were obtained without IV contrast. Multiplanar reformats were generated and reviewed. All CT scans are performed using dose optimization technique as appropriate and may include automated exposure control or mA/KV adjustment according to patient size. FINDINGS: No intracranial hemorrhage, mass, or edema. Midline structures are unremarkable. No hydrocephalus. Ex vacuo dilation the right lateral ventricle and trigone. Right lateral temporal cortical/subcortical hypoattenuation, suggesting encephalomalacia. Carmen-white matter differentiation elsewhere is preserved, without evidence of acute infarct. No abnormal extra-a xial fluid collections. Mastoid air cells and visualized portions of the paranasal sinuses are clear. No acute bony findings. IMPRESSION: No evidence of an acute intracranial process. Region of likely encephalomalacia in the right lateral temporal lobe, with volume loss, suggesting sequelae of remote ischemia.
--- NOTE | 2023-07-27 16:29 | RAD REPORT ---
[facility] DES[facility] 3[facility] pm CLINICAL HISTORY: ams COMPARISON: Chest Single View dated 03/20/2023; Chest Pa And Lat (2 Views) dated 01/26/2018; CHEST P A AND LAT 2 VIEW dated 10/20/2013; CHEST SINGLE VIEW dated 12/26/2008 TECHNIQUE: Portable AP view of the chest. FINDINGS: The lungs are clear. No pneumothorax or effusion. The cardiomediastinal contours are unre markable. IMPRESSION: No acute cardiopulmonary process.
--- NOTE | 2023-07-27 17:07 | ER ---
Nurse's Notes [facility] Name: Morgan Mckeon Age: 33 yrs Sex: Male : 1990 Arrival Date: 07/27/2023 Time: 14:32 Bed 20 [facility] MD: Diagnosis: Syncope Presentation: 07/26 15:21 Chief complaint: Patient states: has been blacking out on and off since March, today iw he got really nauseated and the black out seemed worse. Coronavirus screen: At this time, the client does not indicate any symptoms associated with coronavirus-19. Ebola Screen: No symptoms or risks identified at this time. Initial Sepsis Screen: Does the patient meet any 2 criteria? No. Patient's initial sepsis screen is negative. Does the patient have a suspected source of infection? No. Patient's initial sepsis screen is negative. Risk Assessment: Do you want to hurt yourself or someone else? Patient reports no desire to harm self or others. 15:21 Method Of Arrival: Wheelchair iw 15:21 Acuity: JOSE 3 iw 17:34 Onset of symptoms is unknown. tl4 Historical: - Allergies: 15:22 No Known Allergies; iw - PMHx: 15:22 Anxiety; Anxiety; Bipolar disorder; depressive disorder; Hypertensive disorder; iw - PSHx: 15:22 ear tube; iw - Immunization history:: Adult Immunizations up to date. - Infectious Disease History:: Denies. - Social history:: Smoking status: . - Family history:: not pertinent. Screenin:54 [facility] ED Fall Risk Assessment (Adult) History of falling in the last 3 months, tl4 including since admission No falls in past 3 months (0 pts) Confusion or Disorientation Yes (5 pts) Intoxicated or Sedated No (0 pts) Impaired Gait No (0 pts) Mobility Assist Device Used No (0 pt) Altered Elimination No (0 pt) Score/Fall Risk Level 3 or more points = High Risk Oriented to surroundings, Maintained a safe environment, Educated pt \T\ family on fall prevention, incl call for assistance when getting out of bed, Assessed \T\ reinforced patient's understanding of fall precautions, Hourly rounding (assess needs \T\ fall precautionary measures) done, Used ambulatory aids as needed (educated on \T\ assisted with), Used gait belt as appropriate. [facility] ED Fall Risk Assessment (Adult) Confusion or Disorientation Yes (5 pts). Abuse screen: Denies threats or abuse. Denies injuries from another. Nutritional screening: No deficits noted. Tuberculosis screening: No symptoms or risk factors identified. Assessment: 15:51 General: Appears in no apparent distress. Behavior is calm, cooperative. Pain: tl4 Complains of pain in head. Neuro: Level of Consciousness is awake, alert, obeys commands, Oriented to person, place, time, situation, Production Control Scheduler are equal bilaterally Moves all extremities. Gait is steady, Speech is normal, Facial symmetry appears normal, Pupils are PERRLA, Intact Reports headache a syncopal episode memory loss. Cardiovascular: Reports syncope, Capillary refill < 3 seconds Patient's skin is warm and dry. Rhythm is sinus bradycardia. Respiratory: Airway is patent Respiratory effort is even, unlabored, Respiratory pattern is regular, symmetrical, Breath sounds are clear bilaterally. GI: No signs and/or symptoms were reported involving the gastrointestinal system. : No signs and/or symptoms were reported regarding the genitourinary system. EENT: No signs and/or symptoms were reported regarding the EENT system. Derm: No signs and/or symptoms reported regarding the dermatologic system. Musculoskeletal: No signs and/or symptoms reported regarding the musculoskeletal system. 17:33 Reassessment: Patient and/or family updated on plan of care and expected duration. Pain tl4 level reassessed. Patient is alert, oriented x 3, equal unlabored respirations, skin warm/dry/pink. Vital Signs: 15:22 BP 128 / 86; Pulse 56; Resp 16; Temp 98.4; Pulse Ox 98% on R/A; Weight 132.9 kg; Height iw 6 ft. 0 in. ; 15:53 BP 141 / 98; Pulse 55; Resp 16; Pulse Ox 96% on R/A; tl4 17:33 BP 130 / 82; Pulse 58; Resp 15; Temp 97.8(O); Pulse Ox 98% on R/A; Pain 6/10; tl4 15:22 Body Mass Index 39.74 (132.90 kg, 182.88 cm) iw 17:33 Pain Scale: Adult tl4 Vitals: 15:53 Cardiac Rhythm Assessment Regular Sinus ezio. tl4 [place] Coma Score: 15:53 Eye Response: spontaneous(4). Motor Response: obeys commands(6). Verbal Response: tl4 oriented(5). Total: 15. ED Course: 14:35 Patient arrived in ED. mr 14:46 Paddy Moffett MD is Attending Physician. rt 15:15 Sam Felton, RN is Primary Nurse. tl4 15:22 Triage completed. iw 15:22 Arm band placed on. iw 15:38 Initial lab(s) drawn, by me, sent to lab. Urine collected: clean catch specimen, clear, jg11 kathy colored, EKG done, by ED staff. Inserted saline lock: 20 gauge in left antecubital area, using aseptic technique. Blood collected. 15:38 Basic Metabolic Panel Sent. jg11 15:38 CBC with Diff Sent. jg11 15:38 LFT's Sent. jg11 15:38 Magnesium Sent. jg11 15:38 Troponin HS Sent. jg11 15:51 Basic Metabolic Panel Sent. tl4 15:51 CBC with Diff Sent. tl4 15:51 LFT's Sent. tl4 15:51 Magnesium Sent. tl4 15:51 Troponin HS Sent. tl4 15:51 UAM Sent. tl4 15:51 No provider procedures requiring assistance completed. tl4 15:54 CT Head Brain wo Cont In Process Unspecified. EDMS 15:55 Patient has correct armband on for positive identification. Placed in gown. Bed in low tl4 position. Call light in reach. Side rails up X 1. Adult w/ patient. Provided Education on: ED process. Client placed on continuous cardiac and pulse oximetry monitoring. NIBP monitoring applied. laboratory monitor on. Door closed. Noise minimized. Lights dimmed. Moved to private room. Warm blanket given. 15:56 XRAY Chest (1 view) In Process Unspecified. EDMS 17:06 Bayron Tse MD is Referral Physician. rt 17:06 Shady Piña MD is Referral Physician. rt 17:34 IV discontinued, intact, bleeding controlled, No redness/swelling at site. Pressure tl4 dressing applied. Administered Medications: 15:51 Drug: NS 0.9% IV 1000 ml IV at 1 bolus Per protocol; 1000 mL bolus Route: IV; Rate: 1 tl4 bolus; Site: left antecubital; Delivery: Primary tubing; 16:41 Follow up: Response: No adverse reaction; IV Status: Completed infusion; IV Intake: tl4 1000ml Medication: 15:53 VIS not applicable for this client. tl4 Intake: 16:41 IV: 1000ml; Total: 1000ml. tl4 Outcome: 17:07 Discharge ordered by . rt 17:34 Discharged to home ambulatory, with family, tl4 17:34 Condition: stable 17:34 Discharge instructions given to patient, family, Instructed on discharge instructions, follow up and referral plans. Demonstrated understanding of instructions, follow-up care, 17:35 Patient left the ED. tl4 Signatures: Dispatcher [employer] EDSD Bri Byers, Reg Reg mr Kusum Penaloza, RN RN Paddy Sears MD MD rt Sam Felton RN RN tl4 Miquel Erickson jg11
--- NOTE | 2023-07-27 17:07 | EDPHYS ---
Physician Documentation [facility] Name: Morgan Mckeon Age: 33 yrs Sex: Male : 1990 Arrival Date: 07/27/2023 Time: 14:32 Bed 20 Private MD: ED Physician Paddy Moffett HPI: 07/26 18:15 This 33 yrs old Male presents to ER via Wheelchair with complaints of Syncope, High rt Blood Pressure, Memory Loss. 18:15 Last year, the patient had otomastoiditis with complication with meningitis, was rt transferred to [facility], was on antibiotics. Since then, he has had episodes of staring off, losing focus. Reports feeling dizzy, somewhat weak and not back to normal. States these episodes become more frequently over the past several days to week. Denies total loss of consciousness. Denies other acute complaints at this time, symptoms are moderate in severity, no other aggravating or alleviating factors.. Historical: - Allergies: 15:22 No Known Allergies; iw - PMHx: 15:22 Anxiety; Anxiety; Bipolar disorder; depressive disorder; Hypertensive disorder; iw - PSHx: 15:22 ear tube; iw - Immunization history:: Adult Immunizations up to date. - Infectious Disease History:: Denies. - Social history:: Smoking status: . - Family history:: not pertinent. ROS: 18:25 Constitutional: Negative for fever, chills, and weight loss, Cardiovascular: Negative rt for chest pain, palpitations, and edema, Respiratory: Negative for shortness of breath, cough, wheezing, and pleuritic chest pain, Abdomen/GI: Negative for abdominal pain, nausea, vomiting, diarrhea, and constipation, MS/Extremity: Negative for injury and deformity, Skin: Negative for injury, rash, and discoloration, 18:25 Neuro: Positive for dizziness, syncope, Exam: 18:25 Constitutional: This is a well developed, well nourished patient who is awake, alert, rt and in no acute distress. Head/Face: Normocephalic, atraumatic. Neck: Trachea midline, no thyromegaly or masses palpated, and no cervical lymphadenopathy. Supple, full range of motion without nuchal rigidity, or vertebral point tenderness. No Meningismus. Chest/axilla: Normal chest wall appearance and motion. Nontender with no deformity. No lesions are appreciated. Cardiovascular: Regular rate and rhythm with a normal S1 and S2. No gallops, murmurs, or rubs. Normal PMI, no JVD. No pulse deficits. Respiratory: Lungs have equal breath sounds bilaterally, clear to auscultation and percussion. No rales, rhonchi or wheezes noted. No increased work of breathing, no retractions or nasal flaring. Abdomen/GI: Soft, non-tender, with normal bowel sounds. No distension or tympany. No guarding or rebound. No evidence of tenderness throughout. Skin: Warm, dry with normal turgor. Normal color with no rashes, no lesions, and no evidence of cellulitis. MS/ Extremity: Pulses equal, no cyanosis. Neurovascular intact. Full, normal range of motion. Psych: Awake, alert, with orientation to person, place and time. Behavior, mood, and affect are within normal limits. 18:25 ECG was reviewed by the Attending Physician. 18:25 Neuro: Awake, alert, oriented, cranial nerves II through XII intact, strength and sensation intact in upper and lower extremities, Vital Signs: 15:22 BP 128 / 86; Pulse 56; Resp 16; Temp 98.4; Pulse Ox 98% on R/A; Weight 132.9 kg; Height iw 6 ft. 0 in. ; 15:53 BP 141 / 98; Pulse 55; Resp 16; Pulse Ox 96% on R/A; tl4 17:33 BP 130 / 82; Pulse 58; Resp 15; Temp 97.8(O); Pulse Ox 98% on R/A; Pain 6/10; tl4 15:22 Body Mass Index 39.74 (132.90 kg, 182.88 cm) iw 17:33 Pain Scale: Adult tl4 Donnell Coma Score: 15:53 Eye Response: spontaneous(4). Motor Response: obeys commands(6). Verbal Response: tl4 oriented(5). Total: 15. MDM: 15:18 Patient medically screened. rt 18:31 Differential Diagnosis: Dysrhythmia, focal seizure, intracranial lesion. Data reviewed: rt vital signs, nurses notes, lab test result(s), EKG, radiologic studies. Consideration of Admission/Observation Escalation of care including admission/observation considered. Labs are essentially unremarkable. No acute findings on CT scan. Patient is comfortable with discharge, will follow-up with neurology and cardiology as an outpatient.. I considered the following discharge prescriptions or medication management in the emergency department Medications were administered in the Emergency Department. See MAR. Independent interpretation of the following test(s) in the Emergency Department CT Scan: My interpretation is No intracranial hemorrhage seen on my interpretation of CT scan images. Test considered but Not performed: Labs: Clinically, I do not believe the patient has recurrence of the meningitis, however, I did offer to him have a lumbar puncture be performed to rule out meningitis. He declines this.. Care significantly affected by the following chronic conditions: Hypertension. Counseling: I had a detailed discussion with the patient and/or guardian regarding the historical points, exam findings, and any diagnostic results supporting the discharge/admit diagnosis, lab results, radiology results, the need for outpatient follow up, to return to the emergency department if symptoms worsen or persist or if there are any questions or concerns that arise at home. 07/26 15:24 Order name: Basic Metabolic Panel; Complete Time: 16:19 rt 07/26 15:24 Order name: CBC with Diff; Complete Time: 16: rt 07/26 15:24 Order name: LFT's; Complete Time: 16: rt 07/26 15:24 Order name: Magnesium; Complete Time: 16: rt 07/26 15:24 Order name: Troponin HS; Complete Time: 16:19 rt 07/26 15:24 Order name: UAM; Complete Time: 16:19 rt 07/26 15:24 Order name: XRAY Chest (1 view); Complete Time: 16:34 rt 07/26 15:24 Order name: CT Head Brain wo Cont; Complete Time: 16:34 rt 07/26 15:24 Order name: EKG; Complete Time: 15:25 rt 07/26 15:24 Order name: Cardiac monitoring; Complete Time: 15:29 rt 07/26 15:24 Order name: EKG - Nurse/Tech; Complete Time: 15:38 rt 07/26 15:24 Order name: IV Saline Lock; Complete Time: 15:38 rt 07/26 15:24 Order name: Labs collected and sent; Complete Time: 15:38 rt 07/26 15:24 Order name: O2 Per Protocol; Complete Time: 15: rt 07/26 15:24 Order name: O2 Sat Monitoring; Complete Time: 15:29 rt EC:25 Rate is 52 beats/min. Rhythm is regular, Sinus bradycardia with No ectopy. QRS Vance is rt Normal. MD interval is normal. QRS interval is normal. QT interval is normal. No Q waves. T waves are Normal. No ST changes noted. Interpreted by me. Administered Medications: 15:51 Drug: NS 0.9% IV 1000 ml IV at 1 bolus Per protocol; 1000 mL bolus Route: IV; Rate: 1 tl4 bolus; Site: left antecubital; Delivery: Primary tubing; 16:41 Follow up: Response: No adverse reaction; IV Status: Completed infusion; IV Intake: tl4 1000ml Disposition Summary: 07/27/23 17:07 Discharge Ordered Notes: Location: Home rt Problem: an ongoing problem rt Symptoms: are unchanged rt Condition: Stable rt Diagnosis - Syncope rt Followup: rt - With: Bayron Tse MD - When: 2 - 3 days - Reason: Followup: rt - With: Shady Piña MD - When: 2 - 3 days - Reason: Discharge Instructions: - Discharge Summary Sheet rt - Syncope rt Forms: - Medication Reconciliation Form rt - Thank You Letter rt - Antibiotic Education rt - Prescription Opioid Use rt - Patient Portal Instructions rt - Leadership Thank You Letter rt Signatures: Dispatcher [employer] Kusum Miranda, EITAN LAIRD iw Paddy Moffett MD MD rt Sam Felton RN RN tl4 Corrections: (The following items were deleted from the chart) 15:25 15:25 BASIC METABOLIC PANEL+C.LAB.BRZ ordered. EDMS EDMS 15:25 15:25 CBC+H.LAB.BRZ ordered. EDMS EDMS 15:25 15:25 HEPATIC FUNCTION+C.LAB.BRZ ordered. EDMS EDMS 15:25 15:25 MAGNESIUM+C.LAB.BRZ ordered. EDMS EDMS 15:25 15:25 Troponin High Sensitivity+C.LAB.BRZ ordered. EDMS EDMS 15:25 15:25 Urinalysis W/Microscopic+U.LAB.BRZ ordered. EDMS EDMS
[2023-07-27 17:58] VITALS: BP 130/82; TEMP 97.8; O2SAT 98
== END 2023-07-27 17:35 | disposition home or self-care (01) ==
LOC: ER 14:32
DX: R55 Syncope and collapse (principal); R42 Dizziness and giddiness; I10 Essential (primary) hypertension; F31.9 Bipolar disorder, unspecified
CPT/HCPCS: 85025; 81001; 80048; 36415; 83735; 80076; 84484; 70450; 71045; 96360; 99285; J7030

== ENCOUNTER 2023-12-02 18:11 | Inpatient (IN) | payer BC ==
[2023-12-02 18:54] LABS: Arterial Blood Carboxyhemoglob 0.7 % (0-1.5); Blood Gas Oxyhemoglobin 87.9 % (94-97); Blood Gas THB 14.8 g/dl (12-18); Blood O2 Saturation 90.3 % (92-98.5)
[2023-12-02 19:07] LABS: Absolute Basophils 0.1 K/uL (0-0.5); Absolute Eosinophils 0.2 K/uL (0-0.5); Absolute Lymphocytes (CBC) 3.3 K/uL (0.7-4.9); Absolute Monocytes 0.9 K/uL (0.1-1.3); Absolute Neutrophil 6.9 K/uL (1.8-8.0); Basophils % 1.2 % (0-1.3); Hemoglobin 13.6 g/dL (13.6-17.9); Lymphocytes % 28.8 % (15.3-44.8); MCH 28.5 pg (27.0-35.0); MCHC 34.1 g/dL (32.0-36.0); MCV 83.6 fL (80-100); MPV 8.3 fL (7.6-11.3); Nucleated Red Blood Cells % 0.1 % (0-0); Platelets 403 thou/uL (152-406); RBC Red Blood Cell Count 4.78 M/uL (4.33-5.43); Red Cell Distribution Width 13.6 % (12.1-15.2)
[2023-12-02 19:11] LABS: PT Prothrombin Time 10.9 SECONDS (9.4-12.5); Protime INR 0.97
[2023-12-02 19:36] LABS: ALT/SGPT 52 U/L (16-61); AST/SGOT 31 U/L (15-37); Albumin 3.8 g/dL (3.4-5.0); Alkaline Phosphatase 97 U/L (45-117); Anion Gap 6.8 mEq/L (5.0-15.0); BUN Blood Urea Nitrogen 10 mg/dL (7-18); Bicarbonate 29 mEq/L (21-32); Bilirubin Total 0.3 mg/dL (0.2-1.0); Glomerular Filtration Rate 92 ml/min (=/>90); Glucose Level 111 mg/dL (74-106); Potassium 3.8 mEq/L (3.5-5.1); Protein, Total 7.8 g/dL (6.4-8.2); Sodium Level 137 mEq/L (136-145)
[2023-12-02 19:42] LABS: Bilirubin Direct < 0.2 mg/dL (0-0.2); Bilirubin Indirect, Calculated 0.1 mg/dL (0.2-0.8)
[2023-12-02 19:54] LABS: Specific Gravity 1.012 (1.005-1.030); Sqamous Epithelial None Seen /HPF (None Seen); Urine Bacteria None Seen /HPF (<20); Urine Bilirubin NEGATIVE (Negative); Urine Blood Negative (Negative); Urine Clarity Clear (Clear); Urine Color Light-Yellow (Yellow); Urine Culture Reflex Order NOT NEEDED; Urine Glucose NEGATIVE (Negative); Urine Ketones NEGATIVE (Negative); Urine Microscopic Reflex YN ORDER UMIC; Urine Nitrite NEGATIVE (Negative); Urine Protein NEGATIVE (Negative); Urine RBC <5 /HPF (None Seen); Urine Urobilinogen Normal (Normal); Urine WBC <5 /HPF (<5)
[2023-12-02 19:58] LABS: Barbiturates NEGATIVE (NEGATIVE); Benzodiazepines NEGATIVE (NEGATIVE); Cocaine NEGATIVE (NEGATIVE); METHAMPHETAM NEGATIVE (NEGATIVE); Methadone NEGATIVE (NEGATIVE); Opiates NEGATIVE (NEGATIVE); Phencyclidine NEGATIVE (NEGATIVE); THC Cannibis NEGATIVE (NEGATIVE)
--- NOTE | 2023-12-02 20:18 | RAD REPORT ---
EXAM DESCRIPTION: CT - Head Brain Wo Cont - 12/02/2023 7:46 pm CLINICAL HISTORY: Alteration of awareness/confusion COMPARISON: July 2022 TECHNIQUE: Computed axial tomography of the head was obtained. IV contrast was not requested. All CT scans are performed using dose optimization technique as appropriate and may include automated exposure control or mA/KV adjustment according to patient size. FINDINGS: An intracranial bleed is not seen The ventricles are normal in caliber No extra-axial fluid collection is noted. Low-density right temporal lobe unchanged which could be secondary to prior inflammation or prior inf arction. Low-density area within kuldip Fluid within the sinuses/ mastoids is not seen. IMPRESSION: Low-density area within the kuldip. This is a common location for beam hardening artifact and is the probable explanation for this. An acute process such as infarction can have a similar appe arance and should be correlated clinically If patient's symptoms persist MRI of the brain would be recommended
--- NOTE | 2023-12-02 23:18 | EDPHYS ---
Physician Documentation [facility] [place] Name: Morgan Mckeon Age: 33 yrs Sex: Male : 1990 Arrival Date: 12/02/2023 Time: 18:11 Bed 6 Private MD: ED Physician Paddy Moffett HPI: 12/01 18:33 This 33 yrs old Male presents to ER via Wheelchair with complaints of Altered Mental sp3 Status. 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 states that he over the last hour has just become really quiet and less responsive and "comes in and out of consciousness". He was able to get into the vehicle and get out of the vehicle upon arrival to the ED. Review of systems, history and physical otherwise limited in all history currently from . Patient is nonverbal but does open his eyes. See physical exam for further description.. Historical: - Allergies: 18:18 No Known Allergies; iw - PMHx: 18:18 Anxiety; Bipolar disorder; depressive disorder; Hypertensive disorder; iw - PSHx: 18:18 ear tube; iw - Immunization history:: Adult Immunizations not up to date. - Infectious Disease History:: Denies. - Social history:: Smoking status: . ROS: 18:35 Unable to obtain ROS due to altered mental status, sp3 Exam: 18:35 Head/Face: Normocephalic, atraumatic. Chest/axilla: Normal chest wall appearance and sp3 motion. Nontender with no deformity. No lesions are appreciated. Cardiovascular: Regular rate and rhythm with a normal S1 and S2. No gallops, murmurs, or rubs. Normal PMI, no JVD. No pulse deficits. Respiratory: Lungs have equal breath sounds bilaterally, clear to auscultation and percussion. No rales, rhonchi or wheezes noted. No increased work of breathing, no retractions or nasal flaring. 18:35 Neuro: Patient moves all extremities on occasion. He does respond to touch and mildly painful stimuli. Patient appears to be having potential pseudoseizure as well. Patient not in any acute distress and vital signs are normal. Limited physical secondary to patient cooperation., 19:41 ECG was reviewed by the Attending Physician. EKG demonstrates normal sinus rhythm at 78 sp3 bpm with normal intervals, normal QRS, normal axis, normal axis ST segments without evidence of acute ischemia. Vital Signs: 18:17 BP 153 / 102; Pulse 99; Resp 14; Temp 98.4; Pulse Ox 99% on R/A; iw 18:37 BP 154 / 84; Pulse 51; Resp 18; Temp 99.5; Pulse Ox 100% on R/A; Weight 141.97 kg; kj2 Height 6 ft. 0 in. ; Pain 5/10; 19:20 BP 139 / 82; Pulse 84; Resp 18; Pulse Ox 97% on R/A; pc2 19:58 BP 147 / 93; Pulse 83; Resp 18; Pulse Ox 98% on R/A; pc2 21:00 BP 129 / 88; Pulse 72; Resp 18; Pulse Ox 98% on R/A; pc2 22:00 BP 138 / 93; Pulse 82; Resp 16; Pulse Ox 98% ; pc2 23:00 BP 128 / 84; Pulse 81; Resp 18; Pulse Ox 97% on R/A; pc2 18:37 Body Mass Index 42.45 (141.97 kg, 182.88 cm) kj2 18:37 Pain Scale: Adult kj2 MDM: 18:24 Patient medically screened. sp3 18:36 Data reviewed: vital signs, nurses notes, old medical records, lab test result(s), EKG. sp3 ED course: 33-year-old male with altered mental status. Differential diagnosis includes psychiatric presentation of schizoaffective disorder, seizure activity, other intracranial process, electrolyte disturbance, substance effect, among others. I am not highly suspicious of infection at this time. Will obtain CT scan of the head, laboratory values, toxicology workup, UA, UDS and general observation and serial neuroexams.. 19:54 ED course: Workup still pending. Patient will be signed out to nighttime physician Dr. karlos Moffett for final reevaluation and disposition.. 12/02 03:21 Consideration of Admission/Observation Patient was admitted/placed on observation. rt Management of patient was discussed with the following: Hospitalist: Agrees to admit. I considered the following discharge prescriptions or medication management in the emergency department Medications were administered in the Emergency Department. See MAR. Independent interpretation of the following test(s) in the Emergency Department CT Scan: My interpretation is No intracranial hemorrhage seen by dilatation of CT scan images. Counseling: I had a detailed discussion with the patient and/or guardian regarding the historical points, exam findings, and any diagnostic results supporting the discharge/admit diagnosis, lab results, radiology results, the need for further work-up and treatment in the hospital. ED course: I reevaluate the patient, reports feeling stiff, numb on the right side of the body. Suspect pontine finding is artifactual only, do not patient is having an acute stroke, believe this is more likely a Mike's paralysis. Nonetheless, will admit patient for further workup.. 12/01 18:32 Order name: Acetaminophen; Complete Time: 19:54 sp3 12/01 18:32 Order name: Basic Metabolic Panel; Complete Time: 19:54 sp3 12/01 18:32 Order name: CBC with Diff; Complete Time: 19:26 sp3 12/01 18:32 Order name: ETOH Level; Complete Time: 19:54 3 12/01 18:32 Order name: Hepatic Function; Complete Time: 19:54 3 12/01 18:32 Order name: PT-INR; Complete Time: 19:26 3 12/01 18:32 Order name: Ptt, Activated; Complete Time: 19:26 sp3 12/01 18:32 Order name: Salicylate; Complete Time: 19:54 sp3 12/01 18:32 Order name: Urinalysis w/ reflexes; Complete Time: 19:54 3 12/01 18:32 Order name: Urine Drug Screen; Complete Time: 20:00 3 12/01 18:32 Order name: ABG: VBG; Complete Time: 19:26 3 12/01 23:28 Order name: KEPPRA (LEVETIRACETAM) EDMS 12/01 23:28 Order name: Magnesium EDMS 12/01 23:28 Order name: Thyroid Stimulating Hormone EDMS 12/01 23:28 Order name: CBC with Automated Diff EDMS 12/01 23:28 Order name: CBC with Automated Diff EDMS 12/01 23:28 Order name: CBC with Automated Diff EDMS 12/01 23:28 Order name: CBC with Automated Diff EDMS 12/01 23:28 Order name: Comprehensive Metabolic Panel EDMS 12/01 23:28 Order name: Comprehensive Metabolic Panel EDMS 12/01 23:28 Order name: Comprehensive Metabolic Panel [facility] 12/01 23:28 Order name: Comprehensive Metabolic Panel [facility] 12/01 23:28 Order name: Comprehensive Metabolic Panel [facility] 12/01 23:28 Order name: Creatine Phosphokinase [facility] 12/01 23:28 Order name: Creatine Phosphokinase [facility] 12/01 23:28 Order name: Creatine Phosphokinase [facility] 12/01 23:28 Order name: Creatine Phosphokinase [facility] 12/01 23:28 Order name: Lipid Profile [facility] 12/01 23:28 Order name: Lipid Profile [facility] 12/02 06:49 Order name: T4 Free EDVT 12/01 18:39 Order name: CT Head Brain wo Cont; Complete Time: 20:19 sp3 12/01 23:28 Order name: Brain With Cont [facility] 12/02 10:59 Order name: MRI [facility] 12/01 18:32 Order name: EKG; Complete Time: 18:33 sp3 12/01 23:28 Order name: CONS Physician Consult [facility] 12/01 18:32 Order name: EKG - Nurse/Tech; Complete Time: 19:44 sp3 12/01 18:32 Order name: IV Saline Lock; Complete Time: 18:59 sp3 12/01 18:32 Order name: Labs collected and sent; Complete Time: 18:59 sp3 12/01 18:32 Order name: Suicide Screening ([place]); Complete Time: 21:41 sp3 Administered Medications: 12/01 23:42 Drug: Ketorolac IVP 15 mg IVP once Route: IVP; Site: left antecubital; pc2 23:42 Drug: Cyclobenzaprine PO 10 mg PO once Route: PO; pc2 Disposition Summary: 12/02/23 23:17 Hospitalization Ordered Notes: Hospitalization Status: Observation rt Provider: Chiara Larios rt Condition: Stable rt Problem: new rt Symptoms: have improved rt Bed/Room Type: Standard rt Location: Telemetry/MedSurg (observation)(12/03/23 13:15) bd Room Assignment: 207(12/03/23 13:15) bd Diagnosis - Other seizures rt - Right-sided numbness, weakness rt Forms: - Medication Reconciliation Form rt - SBAR form rt - Leadership Thank You Letter rt Signatures: Dispatcher [employer] EMA Singh Fouzia bd Kusum Penaloza, RN RN Lorna Kinsey, RN RN ss Angelina Smith MD MD sp3 Paddy Moffett MD MD rt Liliana Coats, RN RN pc2 Corrections: (The following items were deleted from the chart) 18:33 18:33 ACETAMINOPHEN+C.LAB.BRZ ordered. EDMS EDMS 18:33 18:33 BASIC METABOLIC PANEL+C.LAB.BRZ ordered. EDMS EDMS 18:33 18:33 CBC+H.LAB.BRZ ordered. EDMS EDMS 18:33 18:33 ETHANOL+C.LAB.BRZ ordered. EDMS EDMS 18:33 18:33 HEPATIC FUNCTION+C.LAB.BRZ ordered. EDMS EDMS 18:33 18:33 PROTIME (+INR)+COAG.LAB.BRZ ordered. EDMS EDMS 18:33 18:33 PTT, ACTIVATED+COAG.LAB.BRZ ordered. EDMS EDMS 18:33 18:33 SALICYLATE+C.LAB.BRZ ordered. EDMS EDMS 18:33 18:33 Urinalysis+U.LAB.BRZ ordered. EDMS EDMS 18:33 18:33 URINE DRUG SCREEN+UC.LAB.BRZ ordered. EDMS EDMS 19:31 18:32 Medeiros ordered. sp3 pc2 12/02 02:06 12/01 23:17 Telemetry/MedSurg (observation) rt 12/02 02:06 12/01 23:17 rt 12/02 13:15 02:06 [facility] ER HOLD bd 13:15 02:06 ERHOLD- bd
--- NOTE | 2023-12-02 23:18 | ER ---
Nurse's Notes [facility] Name: Morgan Mckeon Age: 33 yrs Sex: Male : 1990 Arrival Date: 12/02/2023 Time: 18:11 Bed 6 Private MD: Diagnosis: Other seizures;Right-sided numbness, weakness Presentation: 12/01 18:17 Chief complaint: Spouse and/or significant other states: pt not speaking , he felt iw confused about 30 minutes ago, he was repeating the questions, now he is less responsive to me. Coronavirus screen: At this time, the client does not indicate any symptoms associated with coronavirus-19. Ebola Screen: No symptoms or risks identified at this time. Initial Sepsis Screen: Does the patient meet any 2 criteria? No. Patient's initial sepsis screen is negative. Does the patient have a suspected source of infection? No. Patient's initial sepsis screen is negative. Risk Assessment: Do you want to hurt yourself or someone else? Patient reports no desire to harm self or others. Onset of symptoms was December 02, 2023. 18:17 Method Of Arrival: Wheelchair iw 18:17 Acuity: JOSE 2 iw Historical: - Allergies: 18:18 No Known Allergies; iw - PMHx: 18:18 Anxiety; Bipolar disorder; depressive disorder; Hypertensive disorder; iw - PSHx: 18:18 ear tube; iw - Immunization history:: Adult Immunizations not up to date. - Infectious Disease History:: Denies. - Social history:: Smoking status: . Screenin:37 [facility] ED Fall Risk Assessment (Adult) Mobility Assist Device Used. pc2 19:41 [facility] ED Fall Risk Assessment (Adult) History of falling in the last 3 months, pc2 including since admission No falls in past 3 months (0 pts) Confusion or Disorientation No (0 pts) Intoxicated or Sedated No (0 pts) Impaired Gait No (0 pts) Mobility Assist Device Used No (0 pt) Altered Elimination No (0 pt) Score/Fall Risk Level 0 - 2 = Low Risk Oriented to surroundings, Maintained a safe environment, Hourly rounding (assess needs \\T\\ fall precautionary measures) done. Abuse screen: Denies threats or abuse. Denies injuries from another. Nutritional screening: No deficits noted. Tuberculosis screening: No symptoms or risk factors identified. Assessment: 18:35 General: Appears in no apparent distress. Behavior is calm. Pain: Complains of pain in kj2 generalized Pain currently is 5 out of 10 on a pain scale. Neuro: Level of Consciousness is awake, Oriented to person, place. Cardiovascular: Patient's skin is warm and dry. Parent/caregiver reports patient has had. Respiratory: Airway is patent Respiratory effort is unlabored. GI: No deficits noted. : No deficits noted. 19:39 Reassessment: Patient appears in no apparent distress at this time. Patient and/or pc2 family updated on plan of care and expected duration. Pain level reassessed. General: Appears in no apparent distress. comfortable, Behavior is calm, cooperative, appropriate for age. Pain: Complains of pain in neck and right ear Pain currently is 7 out of 10 on a pain scale. Neuro: Level of Consciousness is awake, alert, obeys commands, Oriented to person, place, time, situation, Moves all extremities. Speech is normal, Facial symmetry appears normal, Reports dizziness, headache. Cardiovascular: Heart tones S1 S2 Patient's skin is warm and dry. Respiratory: Airway is patent Respiratory effort is even, unlabored, Respiratory pattern is regular, symmetrical. GI: No signs and/or symptoms were reported involving the gastrointestinal system. : No signs and/or symptoms were reported regarding the genitourinary system. Urine is clear. EENT: Reports pain in right ear. Derm: No signs and/or symptoms reported regarding the dermatologic system. Musculoskeletal: No signs and/or symptoms reported regarding the musculoskeletal system. 21:00 Reassessment: Patient and/or family updated on plan of care and expected duration. Pain pc2 level reassessed. Patient is alert, oriented x 3, equal unlabored respirations, skin warm/dry/pink. 22:00 Reassessment: Patient appears in no apparent distress at this time. pc2 Psych: 21:41 [place] Suicide Severity Screening: In the past month, have you wished you were kj2 or wished you could go to sleep and not wake up? Patient responds "No." "In the past month, have you actually had any thoughts of killing yourself?" Patient responds "no." "In your lifetime, have you ever done anything, started to do anything, or prepared to do anything to end your life?" Patient responds "no.". Subjective: Patient's mood is calm. Objective: Patient is cooperative, Speech is soft, Affect is flat. Interventions: Urine collected and sent for urine drug test. Safety Checks: Visitors are present. Pt denies substance abuse. Commitment: patient brought to ER by girlfriend who explained the patient was not his normal self. Vital Signs: 18:17 BP 153 / 102; Pulse 99; Resp 14; Temp 98.4; Pulse Ox 99% on R/A; iw 18:37 BP 154 / 84; Pulse 51; Resp 18; Temp 99.5; Pulse Ox 100% on R/A; Weight 141.97 kg; kj2 Height 6 ft. 0 in. ; Pain 5/10; 19:20 BP 139 / 82; Pulse 84; Resp 18; Pulse Ox 97% on R/A; pc2 19:58 BP 147 / 93; Pulse 83; Resp 18; Pulse Ox 98% on R/A; pc2 21:00 BP 129 / 88; Pulse 72; Resp 18; Pulse Ox 98% on R/A; pc2 22:00 BP 138 / 93; Pulse 82; Resp 16; Pulse Ox 98% ; pc2 23:00 BP 128 / 84; Pulse 81; Resp 18; Pulse Ox 97% on R/A; pc2 18:37 Body Mass Index 42.45 (141.97 kg, 182.88 cm) kj2 18:37 Pain Scale: Adult kj2 ED Course: 18:14 Patient arrived in ED. im 18:18 Triage completed. iw 18:19 Arm band placed on. iw 18:21 Angelina Smith MD is Attending Physician. sp3 18:34 Lynne Lafleur, RN is Primary Nurse. kj2 19:31 Urine Drug Screen Sent. pc2 19:31 Urinalysis w/ reflexes Sent. pc2 19:41 Patient has correct armband on for positive identification. Bed in low position. Call pc2 light in reach. Side rails up X2. Provided Education on: POC and time frame. Pulse ox on. NIBP on. 19:42 No provider procedures requiring assistance completed. pc2 19:[address] pc2 19:47 CT Head Brain wo Cont In Process Unspecified. EDMS 20:02 Attending Physician role handed off by Angelina Smith MD rt 20:02 Paddy Moffett MD is Attending Physician. rt 23:16 Chiara Larios MD is Hospitalizing Provider. rt 12/02 13:00 1235 CM attempted initial assessment, nurse at bedside administering care. 1300 CM met ane with patient and his Deidre at the bedside in the ED exam room. Patient identified by name and .Demographic sheet confirmed and changes sent to appropriate personnel. Deidre states and her live in a single story home with their daughter. Deidre reports patient occasionally uses a cane for support, and prior to admission, performs ADLs independently. Deidre reports he does not have HH, home oxygen, or medical services at this time, however, has had HH with IV ABX prior. She states he had PIC line previously and was taught how to administer the IV infusions. Deidre does not recall through which service the HH was coordinated. states he wishes to return home upon discharge and Deidre states she will transport him home when he is released. CM team will continue to follow and coordinate care. Administered Medications: 12/01 23:42 Drug: Ketorolac IVP 15 mg IVP once Route: IVP; Site: left antecubital; pc2 23:42 Drug: Cyclobenzaprine PO 10 mg PO once Route: PO; pc2 Medication: 19:41 VIS not applicable for this client. pc2 Output: 23:45 Urine: 600ml (Voided); Total: 600ml. pc2 Outcome: 23:17 Decision to Hospitalize by Provider. rt 12/02 14:18 Patient left the ED. ph Signatures: Dispatcher [employer] EDMS Kusum Penaloza RN RN Radha Weldon RN RN Angelina Smith MD MD sp3 Paddy Moffett MD MD rt Archana Rice Pam, RN RN pc2 Lynne Lafleur RN RN kj2 Radha Dean RN RN peter Corrections: (The following items were deleted from the chart) 12/03 12:17 12/02 13:00 1235 CM attempted initial assessment, nurse at bedside administering care. ane 1300 CM met with patient and his Deidre at the bedside in the ED exam room. Patient identified by name and .Demographic sheet confirmed and changes sent to appropriate personnel. Deidre states and her live in a single story home with their daughter. Deidre reports patient occasionally uses a cane for support, and prior to admission, performs ADLs independently. Deidre reports he does not have HH, home oxygen, or medical services at this time, however, has had HH with IV ABX prior. She states he had PIC line previously and was taught how to administer the IV infusions. Deidre does not recall through which service the HH was coordinated. states he wishes to return home upon discharge and Deidre states she will transport him home when he is released. CM team will continue to follow and coordinate care. ane
[2023-12-02] MEDS ORDERED: ONDANSETRON 4 MG/2 ML VIAL IV PRN (23:24)
[2023-12-02] MEDS ORDERED: KETOROLAC 30 MG/ML INJ ONE (23:28)
[2023-12-02] MEDS ORDERED: CYCLOBENZAPRINE 10 MG TAB ONE (23:29)
--- NOTE | 2023-12-02 23:33 | P.HP ---
Certification for Inpatient Patient admitted to: Observation With expected LOS: <2 Midnights Patient will require the following post-hospital care: None Practitioner: I am a practitioner with admitting privileges, knowledge of patient current condition, hospital course, and medical plan of care. Services: Services provided to patient in accordance with Admission requirements found in Title 42 Section 412.3 of the Code of Federal Regulations Patient History Date of Service: 12/03/23 Reason for admission: Change in mental status History of Present Illness: 53-year-old male with past medical history of HTN, schizoaffective disorder, seizure disorder following meningitis, previously on Keppra, compliant with medication, develop change in mental status todayabout 1 hour prior to presentation in the hospital. Patient and spouse report patient became gradually quite and seems to be intermittently drowsy with poor speech flow but was still able to ambulate into the car. No reported tremors or checks or convulsive episodes. On arrival in the ED patient was nonverbal and initially very drowsy. Vital signs were stable. Laboratory workup including CBC BMP were unremarkable. ABG was also normal. Urine drug screen was negative. Patient spontaneously started to improve in the ER within 1 to 2 hours and was able to hold conversation. No medication was given. Head CT shows an area of low-density area within the kuldip. This is a common location for beam hardening artifact .MRI recommended if persistent symptoms. Patient is being admitted for further observation. At the time of interview, patient is conversant although still slightly drowsy, he states he he stopped taking Keppra due to Keppra affecting his personality. He states he was taking another medication which she cannot remember but also stopped taking that since the last 1 months. He states he thinks he had a seizure earlier today that he had some twitching of his face as well as his hands before his drowsiness started. The twitching has stopped now. Allergies No Known Allergies Allergy (Verified 08/13/12 18:29) Home Medications: Escitalopram Oxalate [Lexapro] 5 mg PO DAILY 03/21/23 Paliperidone [Paliperidone ER] 3 mg PO DAILY 03/21/23 Propranolol [Inderal*] 10 mg PO BID 03/21/23 - Past Medical/Surgical History -: Hypertension -: Schizoaffective disorder -: History of seizure activity -: History of meningitis -: Ear tube removal - Family History Family History: Reviewed- Non-Contributory - Social History Smoking Status: Never smoker Smoking therapy provided: No Patient receptive to therapy: No Alcohol use: No CD- Drugs: No Caffeine use: No Place of Residence: Home Review of Systems 10-point ROS is otherwise unremarkable General: Weakness Neurological: Change in Speech, Confusion Physical Examination - Physical Exam General: Alert, In no apparent distress, Oriented x3, Cooperative HEENT: Atraumatic, Normocephalic Neck: Supple, 2+ carotid pulse no bruit, JVD not distended Respiratory: Clear to auscultation bilaterally, Normal air movement Cardiovascular: Normal pulses, Regular rate/rhythm, Normal S1 S2 Gastrointestinal: Normal bowel sounds, Soft and benign, Non-distended, No ascites, No tenderness Musculoskeletal: No clubbing, No swelling Integumentary: No rashes, No breakdown, No significant lesion Neurological: Normal speech, Normal strength at 5/5 x4 extr, Cranial nerves 3-12 intact, Normal affect, Abnormal sensation (Numbness of the right face and arm) External genitalia: No edema, No lesions - Studies Laboratory Data (last 24 hrs) 12/02/23 12/02/23 12/02/23 18:50 18:50 18:50 WBC 11.50 H Hgb 13.6 Hct 40.0 Plt Count 403 PT 10.9 INR 0.97 APTT 34.0 Sodium 137 Potassium 3.8 BUN 10 Creatinine 1.10 Glucose 111 H Total Bilirubin 0.3 AST 31 ALT 52 Alkaline Phosphatase 97 Assessment and Plan - Problems (Diagnosis) (1) AMS (altered mental status) Current Visit: No Status: Acute - Plan Impression Altered mental status with right-sided numbnesspossibly seizure with postictal neurological changes Rule out new CVA Hypertension History of schizoaffective disorder History of seizure History of medication noncompliance Plan Will admit patient to observation Neurochecks Q2 Neurology checks in a.m. MRI of the brain to further evaluate for abnormal CT as well as right-sided numbness Obtain Keppra level Will resume Keppra dose 500 mg twice daily for now and adjust if low level Ativan as needed effects if seizure activity Continue gentle IV fluid Full code DVT prophylaxis with Lovenox - Advance Directives Does patient have a Living Will: No Does patient have a Durable POA for Healthcare: No Physician Review: Patient Assessed, Agree with Above Assessment and Plan Time Spent Managing Pts Care (In Minutes): 65
[2023-12-02] MEDS ORDERED: HYDRALAZINE HCL 20 MG/ML VIAL IV PRN (23:35)
[2023-12-02] MEDS ORDERED: MELATONIN 5 MG TABLET PO PRN (23:35)
[2023-12-02] MEDS ORDERED: LORazepam 2 MG/ML VIAL IV PRN (23:36)
[2023-12-02] MEDS: NA CHLORIDE 0.9% 1,000 ML IV SCH (23:45)
[2023-12-03 00:48] VITALS: BMI 42.4
[2023-12-03] MEDS: levETIRAcetam 1,000 MG in NA CHLORIDE 0.9% 100 ML IV ONE (00:52)
[2023-12-03] MEDS ORDERED: NA CHLORIDE 0.9% 100 ML ONE (01:07)
[2023-12-03] MEDS ORDERED: LEVETIRACETAM 500 MG/5 ML VIAL IV ONE (01:07)
[2023-12-03] MEDS ORDERED: NA CHLORIDE 0.9% 1,000 ML ONE (01:07)
[2023-12-03 06:36] LABS: Thyroid Stimulating Hormone 4.04 uIU/mL (0.358-3.740)
[2023-12-03] MEDS: levETIRAcetam 500 MG TAB PO SCH (09:00)
[2023-12-03] MEDS: ENOXAPARIN 40 MG/0.4 ML SQ SCH (09:00)
[2023-12-03] MEDS ORDERED: levETIRAcetam 500 MG TAB ONE (09:37)
[2023-12-03] MEDS ORDERED: ENOXAPARIN 40 MG/0.4 ML SQ ONE (09:38)
[2023-12-03 10:11] LABS: Absolute Basophils 0.1 K/uL (0-0.5); Absolute Eosinophils 0.2 K/uL (0-0.5); Absolute Lymphocytes (CBC) 2.4 K/uL (0.7-4.9); Absolute Monocytes 0.6 K/uL (0.1-1.3); Absolute Neutrophil 5.2 K/uL (1.8-8.0); Basophils % 1.2 % (0-1.3); Eosinophils % 2.6 % (0-4.4); Hematocrit 39.6 % (39.6-49.0); Hemoglobin 13.4 g/dL (13.6-17.9); Lymphocytes % 27.6 % (15.3-44.8); MCH 28.6 pg (27.0-35.0); MCHC 33.8 g/dL (32.0-36.0); MCV 84.5 fL (80-100); MPV 8.2 fL (7.6-11.3); Monocytes % 7.4 % (3.3-12.3); Neutrophils % 61.2 % (41.7-73.7); Nucleated Red Blood Cells % 0.1 % (0-0); Platelets 416 thou/uL (152-406); RBC Red Blood Cell Count 4.68 M/uL (4.33-5.43); Red Cell Distribution Width 13.6 % (12.1-15.2)
[2023-12-03 10:32] LABS: Albumin 3.7 g/dL (3.4-5.0); Bilirubin Total 0.6 mg/dL (0.2-1.0); Globulin 3.8 g/dL (2.3-3.5); Protein, Total 7.5 g/dL (6.4-8.2)
--- NOTE | 2023-12-03 10:58 | RAD REPORT ---
EXAM DESCRIPTION: MRI - Brain W/Wo Cont - 12/03/2023 9:38 am CLINICAL HISTORY: AMS COMPARISON: Head CTs 12/02/2023 and 07/27/2023. Brain MRI 03/22/2023 TECHNIQUE: Multiplanar multisequence MRI of the brain performed without IV contrast. FINDINGS: Motion artifact somewhat limits evaluation, despite attempts at repeat imaging. No evidence of acute infarct or other diffusion signal abnormality. Known right lateral temporal ence phalomalacia with adjacent gliosis, and adjacent ex vacuo dilation of the right lateral ventricle tem poral horn. No evidence of acute intracranial hemorrhage or abnormal extra-axial fluid collections. Mild diffuse parenchymal volume loss. Ventricular caliber overall stable. Midline structures are unre markable. Minimal subcortical and deep white matter T2/FLAIR hyperintensities, nonspecific, but suggestive of c hronic small vessel ischemic changes. No mass effect or midline shift. Major vascular flow voids are preserved. Mastoid air cells and paranasal sinuses are clear. IMPRESSION: No acute intracranial process. No evidence of ventriculomegaly or mass effect. Stable sequelae of remote ischemia along the right lateral temporal lobe.
[2023-12-03] MEDS ORDERED: ONDANSETRON 4 MG/2 ML VIAL ONE (11:52)
[2023-12-03] MEDS ORDERED: MORPHINE 2 MG/ML SYR ONE (11:53)
[2023-12-03] MEDS ORDERED: ACETAMINOPHEN 500 MG TAB ONE (11:53)
[2023-12-03] MEDS: ACETAMINOPHEN 500 MG TAB PO PRN (11:58)
[2023-12-03] MEDS: MORPHINE 2 MG/ML SYR IV PRN (11:58)
--- NOTE | 2023-12-03 12:40 | EKG ---
Test Date: 2023-12-02 Test Time: 19:36:04 Cleat Layer: LIANET MEASUREMENT RESULTS: Intervals: Rate: 78 IL: 148 QRSD: 106 QT: 384 QTc: 437 [place]: P: 33 IL: 148 QRS: 99 T: 18 INTERPRETIVE STATEMENTS: Normal sinus rhythm Normal ECG Compared to ECG 01/26/2018 09:30:36 Sinus arrhythmia no longer present Electronically Signed On 12-03-23 12:38:14 CDT by Higinio Gross
[2023-12-04 05:00] LABS: Absolute Basophils 0.1 K/uL (0-0.5); Absolute Eosinophils 0.3 K/uL (0-0.5); Absolute Lymphocytes (CBC) 3.3 K/uL (0.7-4.9); Absolute Monocytes 0.7 K/uL (0.1-1.3); Basophils % 0.9 % (0-1.3); Eosinophils % 3.5 % (0-4.4); Hematocrit 37.6 % (39.6-49.0); Hemoglobin 12.7 g/dL (13.6-17.9); Lymphocytes % 39.6 % (15.3-44.8); MCH 28.7 pg (27.0-35.0); MCHC 33.7 g/dL (32.0-36.0); MCV 85.2 fL (80-100); MPV 8.3 fL (7.6-11.3); Monocytes % 8.5 % (3.3-12.3); Neutrophils % 47.5 % (41.7-73.7); Platelets 378 thou/uL (152-406); RBC Red Blood Cell Count 4.41 M/uL (4.33-5.43); Red Cell Distribution Width 13.6 % (12.1-15.2)
[2023-12-04 05:17] LABS: Albumin 3.2 g/dL (3.4-5.0); Anion Gap 6.4 mEq/L (5.0-15.0); Bilirubin Total 0.3 mg/dL (0.2-1.0); Globulin 3.3 g/dL (2.3-3.5); Potassium 4.4 mEq/L (3.5-5.1); Protein, Total 6.5 g/dL (6.4-8.2)
--- NOTE | 2023-12-04 14:05 | P.PN ---
Subjective Date of Service: 12/04/23 Chief Complaint: Change in mental status Pt is resting comfortably in bed. He complains of right sided weakness and headache. Waiting for Neurology eval and MRI brain. No other complaints. Review of Systems General: Unremarkable Eyes: Unremarkable ENT: Unremarkable Respiratory: Unremarkable Cardiovascular: Unremarkable Gastrointestinal: Unremarkable Genitourinary: Unremarkable Musculoskeletal: Unremarkable Integumentary: Unremarkable Neurological: Weakness Lymphatics: Unremarkable Physical Examination - Vital Signs Temperature: 97.7 F Blood Pressure: 131/62 Pulse: 64 Respirations: 14 Pulse Ox (%): 96 - Physical Exam General: Alert, In no apparent distress, Oriented x3 HEENT: Atraumatic, Normocephalic, PERRLA Neck: Supple, 2+ carotid pulse no bruit, JVD not distended Respiratory: Clear to auscultation bilaterally, Normal air movement Cardiovascular: No edema, Normal pulses, Regular rate/rhythm, Normal S1 S2 Capillary refill: <2 Seconds Gastrointestinal: Normal bowel sounds, Soft and benign, Non-distended Musculoskeletal: No clubbing, No swelling, No contractures Integumentary: No rashes, No breakdown, No significant lesion Neurological: Normal gait, Normal speech, Abnormal strength (right sided weakness) Lymphatics: No axilla or inguinal lymphadenopathy - Studies Laboratory Data (last 24 hrs) 12/04/23 12/04/23 04:35 04:35 WBC 8.40 Hgb 12.7 L Hct 37.6 L Plt Count 378 Sodium 141 Potassium 4.4 BUN 13 Creatinine 0.96 Glucose 111 H Total Bilirubin 0.3 AST 15 ALT 40 Alkaline Phosphatase 80 Assessment And Plan - Plan Altered mental status with right-sided numbness: Likely due seizure with postictal neurological changes. Will continue keppra po BID and prn ativan. Waiting for keppra level. Will consult PT. Rule out new CVA: CT head and MRI brain are unremarkable. Hypertension: Continue home med Headache: Will start topamax 25mg po daily and diclofenac po BID. Pt stopped taking sumatriptan due to side effects. Will likely need ubrelvy History of schizoaffective disorder: Continue home med. History of seizure/ Epilepsy: see above. History of medication noncompliance: Pt was advised to be compliant with home med. DVT ppx: SCD Code: Full code Dispo: Pending hospital course. Physician Review: Patient Assessed, Agree with Above Assessment and Plan
--- NOTE | 2023-12-04 14:21 | P.PN ---
Subjective Date of Service: 12/03/23 Chief Complaint: Change in mental status Pt is resting comfortably in bed. He complains of right sided weakness and headache. Waiting for Neurology eval and MRI brain. Ordered Keppra level. No other complaints. Review of Systems General: Unremarkable Eyes: Unremarkable ENT: Unremarkable Respiratory: Unremarkable Cardiovascular: Unremarkable Gastrointestinal: Unremarkable Genitourinary: Unremarkable Musculoskeletal: Unremarkable Integumentary: Unremarkable Neurological: Weakness Lymphatics: Unremarkable Physical Examination - Vital Signs Temperature: 97.7 F Blood Pressure: 131/62 Pulse: 64 Respirations: 14 Pulse Ox (%): 96 - Physical Exam General: Alert, In no apparent distress, Oriented x3 HEENT: Atraumatic, Normocephalic, PERRLA Neck: Supple, 2+ carotid pulse no bruit Respiratory: Clear to auscultation bilaterally, Normal air movement Cardiovascular: No edema, Normal pulses, Regular rate/rhythm Capillary refill: <2 Seconds Gastrointestinal: Normal bowel sounds, Soft and benign, Non-distended Musculoskeletal: No clubbing, No swelling, No contractures Integumentary: No rashes, No breakdown, No significant lesion Neurological: Normal gait, Normal speech, Normal strength at 5/5 x4 extr Lymphatics: No axilla or inguinal lymphadenopathy - Studies Laboratory Data (last 24 hrs) 12/04/23 12/04/23 04:35 04:35 WBC 8.40 Hgb 12.7 L Hct 37.6 L Plt Count 378 Sodium 141 Potassium 4.4 BUN 13 Creatinine 0.96 Glucose 111 H Total Bilirubin 0.3 AST 15 ALT 40 Alkaline Phosphatase 80 Assessment And Plan - Plan Altered mental status with right-sided numbness: Likely due seizure with postictal neurological changes. Will continue keppra po BID and prn ativan. Waiting for keppra level. Will consult PT. Rule out new CVA: CT head. Waiting for the MRI brain. Hypertension: Continue home med Headache: Will start topamax 25mg po daily and diclofenac 75mg po BID. Pt stopped taking sumatriptan due to side effects. Will likely need ubrelvy History of schizoaffective disorder: Continue home med. History of seizure/ Epilepsy: see above. History of medication noncompliance: Pt was advised to be compliant with home med. DVT ppx: SCD Code: Full code Dispo: Pending hospital course. Physician Review: Patient Assessed, Agree with Above Assessment and Plan
[2023-12-04] MEDS: TOPIRAMATE 25 MG TAB PO SCH (20:18)
[2023-12-04 21:20] VITALS: O2SAT 97
[2023-12-05 05:01] LABS: Absolute Basophils 0.1 K/uL (0-0.5); Absolute Eosinophils 0.3 K/uL (0-0.5); Absolute Monocytes 0.8 K/uL (0.1-1.3); Absolute Neutrophil 5.5 K/uL (1.8-8.0); Basophils % 0.7 % (0-1.3); Eosinophils % 3.2 % (0-4.4); Hematocrit 37.5 % (39.6-49.0); Hemoglobin 12.5 g/dL (13.6-17.9); Lymphocytes % 30.9 % (15.3-44.8); MCH 28.1 pg (27.0-35.0); MCHC 33.2 g/dL (32.0-36.0); MCV 84.8 fL (80-100); MPV 8.5 fL (7.6-11.3); Monocytes % 8.1 % (3.3-12.3); Neutrophils % 57.1 % (41.7-73.7); Platelets 335 thou/uL (152-406); RBC Red Blood Cell Count 4.43 M/uL (4.33-5.43); Red Cell Distribution Width 13.2 % (12.1-15.2)
[2023-12-05 05:08] LABS: Albumin 3.2 g/dL (3.4-5.0); Anion Gap 4.1 mEq/L (5.0-15.0); Bilirubin Total 0.4 mg/dL (0.2-1.0); Globulin 3.3 g/dL (2.3-3.5); Potassium 4.1 mEq/L (3.5-5.1); Protein, Total 6.5 g/dL (6.4-8.2)
[2023-12-05] MEDS: [UNRECOGNIZED DRUG - OTHER] PO SCH (07:52)
[2023-12-05 12:12] VITALS: BP 123/57; TEMP 97.7
--- NOTE | 2023-12-05 12:16 | P.DS ---
Admission Date: 12/04/23 Discharge Date: 12/05/23 Disposition: ROUTINE DISCHARGE Discharge Condition: GOOD Reason for Admission: Change in mental status Brief History of Present Illness: 53-year-old male with past medical history of HTN, schizoaffective disorder, seizure disorder following meningitis, previously on Keppra, compliant with medication, develop change in mental status todayabout 1 hour prior to presentation in the hospital. Patient and spouse report patient became gradually quite and seems to be intermittently drowsy with poor speech flow but was still able to ambulate into the car. No reported tremors or checks or convulsive episodes. On arrival in the ED patient was nonverbal and initially very drowsy. Vital signs were stable. Laboratory workup including CBC BMP were unremarkable. ABG was also normal. Urine drug screen was negative. Patient spontaneously started to improve in the ER within 1 to 2 hours and was able to hold conversation. No medication was given. Head CT shows an area of low-dens ity area within the kuldip. This is a common location for beam hardening artifact .MRI recommended if persistent symptoms. Patient is being admitted for further observation. At the time of interview, patient is conversant although still slightly drowsy, he states he he stopped taking Keppra due to Keppra affecting his personality. He states he was taking another medication which she cannot remember but also stopped taking that since the last 1 months. He states he thinks he had a seizure earlier today that he had some twitching of his face as well as his hands before his drowsiness started. The twitching has stopped now. Hospital Course: Pt is a 33yo male with past medical history of HTN, schizoaffective disorder, seizure disorder following meningitis, previously on Keppra, non-compliance with medication who presented with altered mental status. His girlfriend noticed that pt was quite and seemed to be intermittently drowsy with poor speech flow but was still able to ambulate into the car. On arrival in the ED patient was nonverbal and initially very drowsy. Vital signs were stable. Laboratory workup including CBC BMP were unremarkable. ABG was also normal. Urine drug screen was negative. CT head showed an area of low-density area within the kuldip. MRI brain was unremarkable. We resumed keppra and gave him topamax for headache. Pt is very picky about the medications that he takes due to drug interaction and side effects. He was encouraged to take the keppra and follow up with his PCP. The right sided weakness resolved and pt requested to be discharged. We continued home med for other chronic medical problems. He was advised to avoid driving, swimming or any other activity that will put in danger. Pt was in NAD prior to discharge. Vital Signs/Physical Exam: Temp Pulse Resp BP Pulse Ox 97.7 F 65 18 123/57 L 98 12/05/23 12:00 12/05/23 12:00 12/05/23 12:00 12/05/23 12:00 12/05/23 12:00 Laboratory Data at Discharge: WBC 9.60 thou/uL (4.3-10.9) 12/05/23 04:10 Hgb 12.5 g/dL (13.6-17.9) L 12/05/23 04:10 Hct 37.5 % (39.6-49.0) L 12/05/23 04:10 Plt Count 335 thou/uL (152-406) 12/05/23 04:10 PT 10.9 SECONDS (9.4-12.5) 12/02/23 18:50 INR 0.97 12/02/23 18:50 APTT 34.0 SECONDS (24.3-36.9) 12/02/23 18:50 Sodium 139 mEq/L (136-145) 12/05/23 04:10 Potassium 4.1 mEq/L (3.5-5.1) 12/05/23 04:10 BUN 11 mg/dL (7-18) 12/05/23 04:10 Creatinine 0.93 mg/dL (0.70-1.30) 12/05/23 04:10 Glucose 99 mg/dL (74-106) 12/05/23 04:10 Magnesium 2.1 mg/dL (1.6-2.4) 12/03/23 05:50 Total Bilirubin 0.4 mg/dL (0.2-1.0) 12/05/23 04:10 AST 12 U/L (15-37) L 12/05/23 04:10 ALT 34 U/L (16-61) 12/05/23 04:10 Alkaline Phosphatase 78 U/L (45-117) 12/05/23 04:10 Triglycerides 183 mg/dL (<150) H 12/03/23 09:55 Cholesterol 181 mg/dL (<200) 12/03/23 09:55 HDL Cholesterol 33 mg/dL (40-60) L 12/03/23 09:55 Cholesterol/HDL Ratio 5.48 12/03/23 09:55 Home Medications: ARIPiprazole [Abilify*] 5 mg PO BEDTIME 12/03/23 Buspirone HCl [Buspar*] 5 mg PO BID 12/03/23 Topiramate [Topamax*] 25 mg PO DAILY 30 Days #30 tab 12/05/23 levETIRAcetam [Keppra*] 500 mg PO BID 30 Days #60 tab 12/05/23 New Medications: levETIRAcetam [Keppra*] 500 mg PO BID 30 Days #60 tab Topiramate [Topamax*] 25 mg PO DAILY 30 Days #30 tab Physician Discharge Instructions: Continue ad olya activity as tolerated. take Keppra 500mg po BID and topamax. Follow up with your Neurologist within 1 week. Diet: AHA Activity: Ad olya Followup: Zaid Ribera MD [Primary Care Provider] -
== END 2023-12-05 14:05 | disposition home or self-care (01) | DRG 101 ==
LOC: ER 18:11 → ERHOLD 23:24 → 2ND 12-03 13:40 → OBSVTOIN 12-04 12:29
PROVIDERS: ADMIT Internal Medicine; ATTEND Hospitalist
DX: G40.89 Other seizures (principal); I10 Essential (primary) hypertension; F25.9 Schizoaffective disorder, unspecified; Z79.899 Other long term (current) drug therapy; Z91.148 Patient's other noncompliance with medication regimen for other reason
CPT/HCPCS: 36415; 70450; 70553; 80048; 80053; 80061; 80076; 80143; 80177; 80179; 80307; 81001; 82077; 82550; 82805; 83735; 84439; 84443; 85025; 85610; 85730; 93005; 96374; 99284; A9577; G0378; J1650; J1953; J2270; J2405; J7030

== ENCOUNTER 2024-01-11 18:32 | Emergency (ER) | payer BC ==
[2024-01-11] MEDS ORDERED: METOCLOPRAMIDE 10 MG/2mL INJ ONE (19:05)
[2024-01-11] MEDS ORDERED: NA CHLORIDE 0.9% 1,000 ML ONE (19:05)
[2024-01-11] MEDS ORDERED: DIPHENHYDRAMINE 50 MG/ML VIAL ONE (19:05)
[2024-01-11] MEDS ORDERED: LEVETIRACETAM 500 MG/5 ML VIAL IV ONE (19:38)
--- NOTE | 2024-01-11 19:39 | RAD REPORT ---
EXAMINATION: ONE VIEW CHEST XR CLINICAL INDICATION: Male, 33 years old.COUGH TECHNIQUE: 1 View, AP supine, X-ray of the chest was performed. [id number]. COMPARISON: No prior exam. FINDINGS: Lungs and pleura: Clear lungs. No effusion. Heart and mediastinum: Normal heart size. Unremarkable mediastinal contours. Osseous structures: No acute abnormality. Tubes/lines: None Other: None. IMPRESSION: No acute intrathoracic abnormality.
[2024-01-11] MEDS ORDERED: NA CHLORIDE 0.9% 100 ML ONE (19:40)
--- NOTE | 2024-01-11 19:47 | RAD REPORT ---
EXAMINATION: CT HEAD WITHOUT CONTRAST CT CERVICAL SPINE WITHOUT CONTRAST CLINICAL INDICATION: Male, 33 years old. neck pain;Headache TECHNIQUE: Axial CT images from the skull base to the vertex without intravenous contrast. Axial CT i mages through the cervical spine were obtained without intravenous contrast. Sagittal and coronal reformatted images were created from the data set. Coronal and sagittal reformatted images were creat ed from the data set. One or more of the following dose reduction techniques were used: Automated exposure control, adjustment of the mA and/or kV according to patient size, and/or iterative reconstr uction. Unless otherwise specified, incidental findings do not require dedicated imaging follow-up. [id number]. COMPARISON: MRI 12/03/2023, CT 12/02/2023 FINDINGS: Head: INTRACRANIAL: No acute intracranial hemorrhage. No hydrocephalus. No mass effect or midline shift. No significant white matter disease. Remote right lateral temporal lobe infarct. VASCULATURE: No visualized abnormalities in the arteries or dural venous sinuses. SCALP/SKULL: No significant soft tissue or osseous abnormalities. SINUSES: The visualized paranasal sinuses and mastoid air cells are predominantly clear. Cervical spine: ALIGNMENT: The cervical spine has normal alignment without scoliosis or spondylolisthesis. BONE: Vertebral body heights are maintained. No aggressive osseous lesions. DEGENERATIVE CHANGES: None significant. SOFT TISSUE: No significant abnormalities in the soft tissue of the neck. The visualized lung apices are clear. IMPRESSION: No acute intracranial abnormality. No acute fracture or traumatic malalignment of the cervical spine.
[2024-01-11 19:52] LABS: ALT/SGPT 40 U/L (16-61); AST/SGOT 20 U/L (15-37); Albumin 3.6 g/dL (3.4-5.0); Albumin/Globulin Ratio 0.9 (1.1-1.8); Alkaline Phosphatase 86 U/L (45-117); Anion Gap 8.1 mEq/L (5.0-15.0); BUN Blood Urea Nitrogen 8 mg/dL (7-18); Bicarbonate 27 mEq/L (21-32); Bilirubin Total 0.2 mg/dL (0.2-1.0); Globulin 3.8 g/dL (2.3-3.5); Glomerular Filtration Rate 110 ml/min (=/>90); Glucose Level 92 mg/dL (74-106); Potassium 4.1 mEq/L (3.5-5.1); Protein, Total 7.4 g/dL (6.4-8.2); Sodium Level 137 mEq/L (136-145)
[2024-01-11 20:05] LABS: SARS-CoV-2 Antigen CONTROL BLUE LINE VIS/BG OK; SARS-CoV-2 Antigen Rapid Res Negative (Negative)
[2024-01-11 20:05] LABS: Bilirubin Direct < 0.2 mg/dL (0-0.2)
[2024-01-11 20:13] LABS: Monoscreen NEG (NEG)
[2024-01-11 20:15] LABS: Absolute Basophils 0.1 K/uL (0-0.5); Absolute Eosinophils 0.3 K/uL (0-0.5); Absolute Lymphocytes (CBC) 3.9 K/uL (0.7-4.9); Absolute Monocytes 1.1 K/uL (0.1-1.3); Absolute Neutrophil 8.7 K/uL (1.8-8.0); Eosinophils % 2.2 % (0-4.4); Hemoglobin 14.1 g/dL (13.6-17.9); Lymphocytes % 27.6 % (15.3-44.8); MCH 28.2 pg (27.0-35.0); MCHC 33.5 g/dL (32.0-36.0); MCV 84.2 fL (80-100); MPV 8.3 fL (7.6-11.3); Monocytes % 7.8 % (3.3-12.3); Neutrophils % 61.4 % (41.7-73.7); Nucleated Red Blood Cells % 0.1 % (0-0); Platelets 443 thou/uL (152-406); RBC Red Blood Cell Count 4.99 M/uL (4.33-5.43); Red Cell Distribution Width 13.8 % (12.1-15.2)
[2024-01-11] MEDS ORDERED: KETOROLAC 30 MG/ML INJ ONE (20:43)
[2024-01-11] MEDS ORDERED: ACETAMINOPHEN 500 MG TAB ONE (20:43)
--- NOTE | 2024-01-11 21:49 | EDPHYS ---
Physician Documentation [facility] Name: Morgan Mckeon Age: 33 yrs Sex: Male : 1990 Arrival Date: 01/11/2024 Time: 18:32 Bed 6 Private MD: ED Physician Dominguez Valero HPI: 01/10 19:00 This 33 yrs old Male presents to ER via Ambulatory with complaints of Seizure, Ear Pain.cp 19:00 The patient presents with a history of multiple seizures, an unknown number. cp 19:00 Character of seizure(s): Loss of consciousness: the patient did not lose consciousness, cp Incontinence: none, left side of body shaking. Seizure onset: today. Seizure Hx: Seizure medications: Keppra, known seizure disorder. Associated injury: The patient did not suffer any apparent associated injury. Current symptoms: headache, ear pain times 2 days. Historical: - Allergies: 18:44 No Known Allergies; hb - Home Meds: 18:44 Abilify oral [Active]; BuSpar Oral [Active]; Keppra Oral [Active]; Cymbalta oral hb [Active]; - PMHx: 18:44 Bipolar disorder; Hypertensive disorder; Anxiety; Schizoaffective Disorder; hb - PSHx: 18:44 ear tube; hb - Immunization history:: Adult Immunizations unknown. - Infectious Disease History:: Denies. - Social history:: Smoking status: Patient denies any tobacco usage or history of. ROS: 19:05 Constitutional: Negative for body aches, fever, poor PO intake, cp 19:05 Eyes: Negative for injury, pain, redness, and discharge, cp 19:05 ENT: Positive for ear pain, Negative for drainage from ear(s), sinus pain, difficulty swallowing, difficulty handling secretions, 19:05 Neck: Negative for stiffness, 19:05 Cardiovascular: Negative for chest pain, 19:05 Respiratory: Negative for cough, shortness of breath, wheezing, 19:05 Abdomen/GI: Negative for abdominal pain, vomiting, diarrhea, constipation, 19:05 Neuro: Positive for headache, history of seizures, Negative for altered mental status, weakness, 19:05 All other systems are negative, Exam: 19:10 Constitutional: The patient appears in no acute distress, alert, awake, cp non-diaphoretic, non-toxic, well developed, well nourished, obese, uncomfortable, 19:10 Head/Face: Normocephalic, atraumatic. cp 19:10 Eyes: Periorbital structures: appear normal, Pupils: equal, round, and reactive to light and accomodation, Extraocular movements: intact throughout, Conjunctiva: normal, no exudate, no injection, Sclera: no appreciated abnormality, Lids and lashes: appear normal, bilaterally, 19:10 ENT: External ear(s): are unremarkable, Ear canal(s): are normal, clear, TM's: dullness, bilaterally, Nose: is normal, Mouth: Lips: moist, Oral mucosa: moist, Posterior pharynx: Airway: no evidence of obstruction, patent, 19:10 Neck: ROM/movement: is normal, is supple, no meningismus, no nuchal rigidity, 19:10 Chest/axilla: Inspection: normal, 19:10 Cardiovascular: Rate: normal, Rhythm: regular, 19:10 Respiratory: the patient does not display signs of respiratory distress, Respirations: normal, no use of accessory muscles, no retractions, labored breathing, is not present, Breath sounds: are clear throughout, no decreased breath sounds, no stridor, no wheezing, 19:10 Abdomen/GI: Inspection: abdomen appears normal, Palpation: abdomen is soft and non-tender, in all quadrants, 19:10 Back: pain, is absent, ROM is normal, 19:10 Neuro: Orientation: to person, place \T\ time. Mentation: is normal, Cerebellar function: Romberg testing is negative, Motor: moves all fours, strength is normal, Sensation: is normal, 19:12 ECG was reviewed by the Attending Physician. cp Vital Signs: 18:41 BP 165 / 98; Pulse 89; Resp 16; Temp 98.6(O); Pulse Ox 100% on R/A; Weight 136.08 kg; hb Height 6 ft. 0 in. ; Pain 6/10; 19:00 BP 156 / 79; Pulse 69; Resp 18; Pulse Ox 98% on R/A; al5 19:19 BP 139 / 88; Pulse 79; Resp 18; Pulse Ox 99% on R/A; al5 19:37 BP 150 / 103; Pulse 79; Resp 17; Pulse Ox 98% on R/A; al5 19:45 BP 146 / 99; Pulse 82; Resp 16; Pulse Ox 97% on R/A; al5 20:00 BP 149 / 98; Pulse 83; Resp 20; Pulse Ox 97% on R/A; al5 20:15 BP 150 / 89; Pulse 74; Resp 19; Pulse Ox 98% on R/A; al5 20:30 BP 140 / 94; Pulse 68; Resp 16; Pulse Ox 98% on R/A; al5 21:00 BP 153 / 98; Pulse 60; Resp 16; Pulse Ox 98% on R/A; al5 21:30 BP 145 / 98; Pulse 65; Resp 18; Pulse Ox 100% on R/A; al5 18:41 Body Mass Index 40.69 (136.08 kg, 182.88 cm) hb 18:41 Pain Scale: Adult hb [place] Coma Score: 19:11 Eye Response: spontaneous(4). Motor Response: obeys commands(6). Verbal Response: al5 oriented(5). Total: 15. MDM: 18:36 Patient medically screened. 19:00 Differential diagnosis: cerebral vascular accident, cardiac arrhythmia, seizure, TIA, cp illegal drug use, electrolyte abnormality. 21:48 Data reviewed: vital signs, nurses notes, lab test result(s), EKG, radiologic studies, cp CT scan, plain films, and as a result, I will discharge patient. 21:48 I considered the following discharge prescriptions or medication management in the emergency department Medications were administered in the Emergency Department. See MAR. Independent interpretation of the following test(s) in the Emergency Department EKG: See my EKG interpretation above. Care significantly affected by the following chronic conditions: Hypertension. Counseling: I had a detailed discussion with the patient and/or guardian regarding the historical points, exam findings, and any diagnostic results supporting the discharge/admit diagnosis, lab results, radiology results, to return to the emergency department if symptoms worsen or persist or if there are any questions or concerns that arise at home. Response to treatment: the patient's symptoms have markedly improved after treatment, and as a result, I will discharge patient. 01/10 18:55 Order name: Basic Metabolic Panel; Complete Time: 20:44 01/10 18:55 Order name: CBC with Diff; Complete Time: 20:44 01/10 20:45 Interpretation: Normal except: WBC 14.10; PLT 443; NEUT A 8.7. cp / 18:55 Order name: LFT's; Complete Time: 20:44 cp 01/10 18:55 Order name: Magnesium; Complete Time: 20:44 cp 01/10 18:55 Order name: SARS RAPID; Complete Time: 20:44 cp 01/10 18:55 Order name: Influenza Screen (a \T\ B); Complete Time: 20:44 cp 01/10 18:55 Order name: [place] Screen Profile; Complete Time: 20:44 cp 01/10 18:55 Order name: Strep; Complete Time: 20:44 cp 01/10 20:08 Order name: Throat Culture EDMS 01/10 18:55 Order name: XRAY Chest (1 view); Complete Time: 19:54 cp 01/10 18:55 Order name: CT Head C Spine; Complete Time: 19:54 cp 01/10 19:54 Interpretation: Reviewed report. cp 01/10 18:55 Order name: EKG; Complete Time: 18:56 cp 01/10 18:55 Order name: Cardiac monitoring; Complete Time: 19:11 cp 01/10 18:55 Order name: EKG - Nurse/Tech; Complete Time: 19:11 cp 01/10 18:55 Order name: IV Saline Lock; Complete Time: 19:28 cp 01/10 18:55 Order name: Labs collected and sent; Complete Time: 19:28 cp 01/10 18:55 Order name: O2 Per Protocol; Complete Time: 19:28 cp 01/10 18:55 Order name: O2 Sat Monitoring; Complete Time: 19:28 cp EC:12 Rate is 74 beats/min. Rhythm is regular. OH interval is normal. QRS interval is cp prolonged at 108 msec. QT interval is normal. T waves are Inverted in leads III, aVR. Interpreted by me. Reviewed by me. Administered Medications: 19:27 Drug: metoCLOPramide IVP 10 mg IVP once; over 1 to 2 minutes Route: IVP; Site: left al5 antecubital; 20:40 Follow up: Response: No adverse reaction; Pain is decreased al5 19:27 Drug: diphenhydrAMINE IVP 25 mg IVP once Route: IVP; Site: left antecubital; al5 20:40 Follow up: Response: No adverse reaction; Pain is decreased al5 19:27 Drug: NS 0.9% IV 1000 ml IV at 999 ml/hr Per protocol Route: IV; Rate: 999 ml/hr; Site: al5 left antecubital; 21:38 Follow up: Response: No adverse reaction; IV Status: Completed infusion; IV Intake: al5 1000ml 19:49 Drug: Keppra IV 1000 mg IV at calculated rate once Route: IV; Rate: calculated rate; al5 Site: left antecubital; 20:40 Follow up: Response: No adverse reaction; IV Status: Completed infusion; IV Intake: al5 100ml 20:41 Drug: Acetaminophen PO 1000 mg PO once Route: PO; al5 22:02 Follow up: Response: No adverse reaction; Pain is decreased al5 20:47 Drug: Ketorolac IVP 15 mg IVP once Route: IVP; Site: left antecubital; al5 22:02 Follow up: Response: No adverse reaction; Pain is decreased al5 Disposition Summary: 01/11/24 21:49 Discharge Ordered Notes: Location: Home cp Problem: new cp Symptoms: have improved cp Condition: Stable cp Diagnosis - Otalgia, unspecified ear cp - Other seizures cp - Headache cp Followup: cp - With: Private Physician - When: 2 - 3 days - Reason: Recheck today's complaints Discharge Instructions: - Discharge Summary Sheet cp - General Headache Without Cause cp - Earache, Adult cp - Seizure, Adult cp Forms: - Medication Reconciliation Form cp - Antibiotic Education cp - Prescription Opioid Use cp - Patient Portal Instructions cp - Leadership Thank You Letter cp Prescriptions: - Ibuprofen 800 mg Oral Tablet - take 1 tablet ORAL route every 8 hours As needed take with food; 30 tablet; cp Refills: 0, Product Selection Permitted Addendum: 01/13/2024 02:32 I was immediately available for consultation during this patient's visit. I did not e c2 personally see the patient or discuss the patient with the SONIYA. . Signatures: Dispatcher [employer] Juan Antonio Jalloh PA PA cp Baxter, Heather, RN RN hb Leal, Jahala, RN RN jl7 Dominguez Valero MD MD ec2 Joyce Calix RN RN al5 Corrections: (The following items were deleted from the chart) 01/10 18:47 18:44 PMHx: depressive disorder; hb hb 18:56 18:56 BASIC METABOLIC PANEL+C.LAB.BRZ ordered. EDMS EDMS 18:56 18:56 CBC+H.LAB.BRZ ordered. EDMS EDMS 18:56 18:56 HEPATIC FUNCTION+C.LAB.BRZ ordered. EDMS EDMS 18:56 18:56 MAGNESIUM+C.LAB.BRZ ordered. EDMS EDMS 18:56 18:56 SARS-COV-2 Antigen Rapid+I.LAB.BRZ ordered. EDMS EDMS 18:56 18:56 Influenza Screen (A \T\ B)+BA.LAB.BRZ ordered. EDMS EDMS 18:56 18:56 MONO SCREEN PROFILE+I.LAB.BRZ ordered. EDMS EDMS 18:56 18:56 Group A Streptococcus Rapid Sc+BA.LAB.BRZ ordered. EDMS EDMS 18:56 18:56 Chest Single View+RAD.RAD.BRZ ordered. EDMS EDMS
--- NOTE | 2024-01-11 21:49 | ER ---
Nurse's Notes [facility] Name: Morgan Mckeon Age: 33 yrs Sex: Male : 1990 Arrival Date: 01/11/2024 Time: 18:32 Bed 6 Private MD: Diagnosis: Otalgia, unspecified ear;Other seizures;Headache Presentation: 01/10 18:41 Chief complaint: Bilateral ear pain x 2 days, left sided shaking since this morning, hb similar to his typical focal seizures. Coronavirus screen: At this time, the client does not indicate any symptoms associated with coronavirus-19. Ebola Screen: No symptoms or risks identified at this time. Initial Sepsis Screen: Does the patient meet any 2 criteria? No. Patient's initial sepsis screen is negative. Does the patient have a suspected source of infection? No. Patient's initial sepsis screen is negative. Risk Assessment: Do you want to hurt yourself or someone else? Patient reports no desire to harm self or others. Onset of symptoms was January 10, 2024. 18:41 Method Of Arrival: Ambulatory hb 18:41 Acuity: JOSE 3 hb Historical: - Allergies: 18:44 No Known Allergies; hb - Home Meds: 18:44 Abilify oral [Active]; BuSpar Oral [Active]; Keppra Oral [Active]; Cymbalta oral hb [Active]; - PMHx: 18:44 Bipolar disorder; Hypertensive disorder; Anxiety; Schizoaffective Disorder; hb - PSHx: 18:44 ear tube; hb - Immunization history:: Adult Immunizations unknown. - Infectious Disease History:: Denies. - Social history:: Smoking status: Patient denies any tobacco usage or history of. Screenin:42 [facility] ED Fall Risk Assessment (Adult) History of falling in the last 3 months, jl7 including since admission No falls in past 3 months (0 pts) Confusion or Disorientation No (0 pts) Intoxicated or Sedated No (0 pts) Impaired Gait No (0 pts) Mobility Assist Device Used No (0 pt) Altered Elimination No (0 pt) Score/Fall Risk Level 0 - 2 = Low Risk Oriented to surroundings, Maintained a safe environment. Abuse screen: Denies threats or abuse. Denies injuries from another. Nutritional screening: No deficits noted. Tuberculosis screening: No symptoms or risk factors identified. Assessment: 18:42 General: Appears in no apparent distress. uncomfortable, Behavior is calm, cooperative, jl7 appropriate for age. Pain: Complains of pain in right ear and left ear Pain currently is 10 out of 10 on a pain scale. Quality of pain is described as burning. Neuro: Level of Consciousness is awake, alert, obeys commands, Oriented to person, place, time, situation. Cardiovascular: Patient's skin is warm and dry. Respiratory: Airway is patent Respiratory effort is even, unlabored, Respiratory pattern is regular, symmetrical. Derm: Skin is pink, warm \T\ dry. 19:15 General: Appears in no apparent distress. Behavior is calm, cooperative. Pain: al5 Complains of pain in head and left ear and right ear. Neuro: Level of Consciousness is awake, alert, obeys commands, Oriented to person, place, time, situation. Cardiovascular: Capillary refill < 3 seconds Patient's skin is warm and dry. Respiratory: Airway is patent Respiratory effort is even, unlabored, Respiratory pattern is regular, symmetrical. GI: No signs and/or symptoms were reported involving the gastrointestinal system. : No signs and/or symptoms were reported regarding the genitourinary system. EENT: Reports pain in left ear and right ear. Derm: Skin is intact, Skin is pink, warm \T\ dry. normal. Musculoskeletal: Reports pain in head. 20:48 Reassessment: Patient appears in no apparent distress at this time. Patient and/or al5 family updated on plan of care and expected duration. Pain level reassessed. Patient is alert, oriented x 3, equal unlabored respirations, skin warm/dry/pink. Patient states feeling better. Patient states symptoms have improved. 21:59 Reassessment: Patient appears in no apparent distress at this time. No changes from al5 previously documented assessment. Patient and/or family updated on plan of care and expected duration. Pain level reassessed. Patient is alert, oriented x 3, equal unlabored respirations, skin warm/dry/pink. Vital Signs: 18:41 BP 165 / 98; Pulse 89; Resp 16; Temp 98.6(O); Pulse Ox 100% on R/A; Weight 136.08 kg; hb Height 6 ft. 0 in. ; Pain 6/10; 19:00 BP 156 / 79; Pulse 69; Resp 18; Pulse Ox 98% on R/A; al5 19:19 BP 139 / 88; Pulse 79; Resp 18; Pulse Ox 99% on R/A; al5 19:37 BP 150 / 103; Pulse 79; Resp 17; Pulse Ox 98% on R/A; al5 19:45 BP 146 / 99; Pulse 82; Resp 16; Pulse Ox 97% on R/A; al5 20:00 BP 149 / 98; Pulse 83; Resp 20; Pulse Ox 97% on R/A; al5 20:15 BP 150 / 89; Pulse 74; Resp 19; Pulse Ox 98% on R/A; al5 20:30 BP 140 / 94; Pulse 68; Resp 16; Pulse Ox 98% on R/A; al5 21:00 BP 153 / 98; Pulse 60; Resp 16; Pulse Ox 98% on R/A; al5 21:30 BP 145 / 98; Pulse 65; Resp 18; Pulse Ox 100% on R/A; al5 18:41 Body Mass Index 40.69 (136.08 kg, 182.88 cm) hb 18:41 Pain Scale: Adult hb Donnell Coma Score: 19:11 Eye Response: spontaneous(4). Motor Response: obeys commands(6). Verbal Response: al5 oriented(5). Total: 15. ED Course: 18:33 Patient arrived in ED. im 18:36 Juan Antonio Mix PA is PHCP. cp 18:36 Paddy Moffett MD is Attending Physician. cp 18:37 Bev Hernandez RN is Primary Nurse. jl7 18:42 Patient has correct armband on for positive identification. Provided Education on: use jl7 of call gale. 18:44 Triage completed. hb 19:00 Arm band placed on right wrist. Patient placed in the treatment room, on a stretcher. al5 19:10 EKG done, by ED staff, reviewed by Juan Antonio MCCRAY. am7 19:11 lunchroom monitor on. am7 19:11 Seizure precautions initiated. al5 19:23 Inserted saline lock: 20 gauge in left antecubital area, using aseptic technique. Blood sa1 collected. Flushed with 10 mL NS Missed attempt(s): 20 gauge in right antecubital area. Bleeding controlled, band aid applied, catheter tip intact. 19:28 Strep Sent. al5 19:28 [place] Screen Profile Sent. al5 19:28 Influenza Screen (a \T\ B) Sent. al5 19:28 SARS RAPID Sent. al5 19:28 Basic Metabolic Panel Sent. al5 19:28 LFT's Sent. al5 19:28 Magnesium Sent. al5 19:28 CBC with Diff Sent. al5 19:33 XRAY Chest (1 view) In Process Unspecified. EDMS 19:41 CT Head C Spine In Process Unspecified. EDMS 21:35 Dominguez Valero MD is Attending Physician. cp 22:00 No provider procedures requiring assistance completed. IV discontinued, intact, al5 bleeding controlled, No redness/swelling at site. Pressure dressing applied. Administered Medications: 19:27 Drug: metoCLOPramide IVP 10 mg IVP once; over 1 to 2 minutes Route: IVP; Site: left al5 antecubital; 20:40 Follow up: Response: No adverse reaction; Pain is decreased al5 19:27 Drug: diphenhydrAMINE IVP 25 mg IVP once Route: IVP; Site: left antecubital; al5 20:40 Follow up: Response: No adverse reaction; Pain is decreased al5 19:27 Drug: NS 0.9% IV 1000 ml IV at 999 ml/hr Per protocol Route: IV; Rate: 999 ml/hr; Site: al5 left antecubital; 21:38 Follow up: Response: No adverse reaction; IV Status: Completed infusion; IV Intake: al5 1000ml 19:49 Drug: Keppra IV 1000 mg IV at calculated rate once Route: IV; Rate: calculated rate; al5 Site: left antecubital; 20:40 Follow up: Response: No adverse reaction; IV Status: Completed infusion; IV Intake: al5 100ml 20:41 Drug: Acetaminophen PO 1000 mg PO once Route: PO; al5 22:02 Follow up: Response: No adverse reaction; Pain is decreased al5 20:47 Drug: Ketorolac IVP 15 mg IVP once Route: IVP; Site: left antecubital; al5 22:02 Follow up: Response: No adverse reaction; Pain is decreased al5 Medication: 18:42 VIS not applicable for this client. jl7 Intake: 20:40 IV: 100ml; Total: 100ml. al5 21:38 IV: 1000ml; Total: 1100ml. al5 Outcome: 21:49 Discharge ordered by MD. molina 22:02 Patient left the ED. al5 Signatures: Dispatcher [employer] EDMS Juan Antonio Mix PA PA cp Baxter, Heather RN RN hb Bev Hernandez RN RN jl7 Archana Rice Amanda, RN RN al5 Sultan Jennifer sa1 Peg Buckley am7 Corrections: (The following items were deleted from the chart) 18:47 18:44 PMHx: depressive disorder; hb hb
[2024-01-11 22:11] VITALS: TEMP 98.6
[2024-01-11 22:37] VITALS: BP 145/98; O2SAT 100
--- NOTE | 2024-01-13 11:57 | EKG ---
Test Date: 2024-01-11 Test Time: 19:05:39 [employer]: AM MEASUREMENT RESULTS: Intervals: Rate: 74 MA: 150 QRSD: 108 QT: 366 QTc: 406 Alleman: P: 32 MA: 150 QRS: -43 T: 17 INTERPRETIVE STATEMENTS: Normal sinus rhythm Left axis deviation Abnormal ECG Compared to ECG 12/02/2023 19:36:04 Left-axis deviation now present Electronically Signed On 01-13-24 11:53:03 CDT by Higinio Gross
== END 2024-01-11 22:02 | disposition home or self-care (01) ==
LOC: ER 18:32
DX: H92.03 Otalgia, bilateral (principal); G40.89 Other seizures; R51.9 Headache, unspecified; Z11.52 Encounter for screening for COVID-19; I10 Essential (primary) hypertension
CPT/HCPCS: 96365; 96361; 93005; 87070; 85025; 80048; 36415; 83735; 86308; 80076; 87081; 87804 ×2; 70450; 72125; 71045; 96375; 99285; 87811; J1953; J2765; J1200; J7030

== ENCOUNTER 2024-01-31 15:25 | Emergency (ER) | payer BC ==
[2024-01-31] MEDS ORDERED: LEVETIRACETAM 500 MG/5 ML VIAL IV ONE (16:17)
[2024-01-31] MEDS ORDERED: LORazepam 2 MG/ML VIAL ONE (16:17)
[2024-01-31 16:18] LABS: Absolute Basophils 0.2 K/uL (0-0.5); Absolute Eosinophils 0.3 K/uL (0-0.5); Absolute Lymphocytes (CBC) 3.1 K/uL (0.7-4.9); Absolute Monocytes 0.9 K/uL (0.1-1.3); Absolute Neutrophil 6.3 K/uL (1.8-8.0); Basophils % 1.4 % (0-1.3); Eosinophils % 2.8 % (0-4.4); Hematocrit 40.8 % (39.6-49.0); Hemoglobin 14.2 g/dL (13.6-17.9); Lymphocytes % 29.2 % (15.3-44.8); MCHC 34.9 g/dL (32.0-36.0); MCV 83.2 fL (80-100); MPV 7.8 fL (7.6-11.3); Monocytes % 8.4 % (3.3-12.3); Neutrophils % 58.2 % (41.7-73.7); Nucleated Red Blood Cells % 0.1 % (0-0); Platelets 458 thou/uL (152-406); RBC Red Blood Cell Count 4.91 M/uL (4.33-5.43); Red Cell Distribution Width 13.5 % (12.1-15.2)
[2024-01-31] MEDS ORDERED: NA CHLORIDE 0.9% 250 ML ONE (16:18)
[2024-01-31] MEDS ORDERED: NA CHLORIDE 0.9% 2,000 ML ONE (16:18)
[2024-01-31 16:24] LABS: PT Prothrombin Time 11.1 SECONDS (9.4-12.5); PTT, Activated Partial Thromb 36.6 SECONDS (24.3-36.9); Protime INR 0.99
[2024-01-31 16:35] LABS: Specific Gravity 1.017 (1.005-1.030); Sqamous Epithelial None Seen /HPF (None Seen); Urine Bacteria None Seen /HPF (<20); Urine Bilirubin NEGATIVE (Negative); Urine Blood Negative (Negative); Urine Clarity Clear (Clear); Urine Color Light-Yellow (Yellow); Urine Culture Reflex Order NOT NEEDED; Urine Glucose NEGATIVE (Negative); Urine Ketones NEGATIVE (Negative); Urine Microscopic Reflex YN ORDER UMIC; Urine Nitrite NEGATIVE (Negative); Urine Protein NEGATIVE (Negative); Urine RBC <5 /HPF (None Seen); Urine Urobilinogen Normal (Normal); Urine WBC <5 /HPF (<5); Urine pH 7.5 (5.0-7.0)
[2024-01-31 16:36] LABS: ALT/SGPT 36 U/L (16-61); AST/SGOT 19 U/L (15-37); Albumin 3.8 g/dL (3.4-5.0); Alkaline Phosphatase 76 U/L (45-117); Anion Gap 8.9 mEq/L (5.0-15.0); BUN Blood Urea Nitrogen 10 mg/dL (7-18); Bicarbonate 27 mEq/L (21-32); Bilirubin Total 0.3 mg/dL (0.2-1.0); Globulin 3.7 g/dL (2.3-3.5); Glomerular Filtration Rate 89 ml/min (=/>90); Glucose Level 93 mg/dL (74-106); Potassium 3.9 mEq/L (3.5-5.1); Protein, Total 7.5 g/dL (6.4-8.2); Sodium Level 140 mEq/L (136-145)
[2024-01-31 16:38] LABS: Bilirubin Direct < 0.2 mg/dL (0-0.2); Bilirubin Indirect, Calculated 0.1 mg/dL (0.2-0.8)
[2024-01-31 16:44] LABS: Barbiturates NEGATIVE (NEGATIVE); Benzodiazepines NEGATIVE (NEGATIVE); Cocaine NEGATIVE (NEGATIVE); METHAMPHETAM NEGATIVE (NEGATIVE); Methadone NEGATIVE (NEGATIVE); Opiates NEGATIVE (NEGATIVE); Phencyclidine NEGATIVE (NEGATIVE); THC Cannibis NEGATIVE (NEGATIVE)
--- NOTE | 2024-01-31 16:55 | ER ---
Nurse's Notes [facility] Name: Morgan Mckeon Age: 33 yrs Sex: Male : 1990 Arrival Date: 01/31/2024 Time: 15:25 Bed 2 Private MD: Diagnosis: Epileptic seizures related to external causes, not intractable, without status epilepticus Presentation: 01/30 15:45 Chief complaint: Patient states: he has had three seizures today. states his worst one kc6 was at about 1245 when he fell from a standing position and hit his head. Coronavirus screen: At this time, the client does not indicate any symptoms associated with coronavirus-19. Ebola Screen: No symptoms or risks identified at this time. Initial Sepsis Screen: Does the patient meet any 2 criteria? No. Patient's initial sepsis screen is negative. Does the patient have a suspected source of infection? No. Patient's initial sepsis screen is negative. Risk Assessment: Do you want to hurt yourself or someone else? Patient reports no desire to harm self or others. Onset of symptoms was January 31, 2024. 15:45 Method Of Arrival: Wheelchair kc6 15:45 Acuity: JOSE 2 kc6 Historical: - Allergies: 15:46 No Known Allergies; kc6 - PMHx: 15:46 Anxiety; Bipolar disorder; Hypertensive disorder; schizoaffective disorder; Seizure; kc6 - PSHx: 15:46 ear tube; kc6 - Immunization history:: Adult Immunizations up to date. - Infectious Disease History:: Denies. - Social history:: Smoking status: Patient reports use of chewing tobacco. - Family history:: not pertinent. Screenin:33 [facility] ED Fall Risk Assessment (Adult) History of falling in the last 3 months, ko1 including since admission Yes- physiologic fall (2 pts) Confusion or Disorientation No (0 pts) Intoxicated or Sedated No (0 pts) Impaired Gait No (0 pts) Mobility Assist Device Used No (0 pt) Altered Elimination No (0 pt) Score/Fall Risk Level 0 - 2 = Low Risk Oriented to surroundings, Maintained a safe environment, Educated pt \T\ family on fall prevention, incl call for assistance when getting out of bed, Assessed \T\ reinforced patient's understanding of fall precautions, Hourly rounding (assess needs \T\ fall precautionary measures) done. Abuse screen: Denies threats or abuse. Denies injuries from another. Nutritional screening: No deficits noted. Tuberculosis screening: No symptoms or risk factors identified. Assessment: 16:33 General: Appears in no apparent distress. Behavior is calm, cooperative, appropriate ko1 for age, flat. Pain: Denies pain. Neuro: Seizure activity reported prior to arrival. Cardiovascular: No deficits noted. Respiratory: No deficits noted. GI: No deficits noted. : No deficits noted. EENT: No deficits noted. Derm: No deficits noted. Musculoskeletal: No deficits noted. 16:59 Reassessment: awaiting fluids to complete before discharging patient. ko1 Vital Signs: 15:45 BP 143 / 87; Pulse 73; Resp 18; Temp 98.6(O); Pulse Ox 98% on R/A; kc6 16:12 Weight 136.5 kg; ko1 16:33 BP 121 / 86; Pulse 75; Resp 15; Pulse Ox 99% on R/A; ko1 17:38 BP 122 / 66; Pulse 72; Resp 16; Pulse Ox 99% ; ko1 18:29 BP 112 / 68; Pulse 78; Resp 16; Pulse Ox 99% ; ko1 Ambia Coma Score: 15:46 Eye Response: spontaneous(4). Motor Response: obeys commands(6). Verbal Response: kc6 oriented(5). Total: 15. ED Course: 15:26 Patient arrived in ED. mr 15:36 Juan Antonio Newell MD is Attending Physician. [facility] 15:46 Triage completed. kc6 15:46 Arm band placed on. kc6 16:09 Acetaminophen Sent. ko1 16:10 Basic Metabolic Panel Sent. ko1 16:10 CBC with Diff Sent. ko1 16:10 ETOH Level Sent. ko1 16:10 Hepatic Function Sent. ko1 16:10 PT-INR Sent. ko1 16:10 Ptt, Activated Sent. ko1 16:10 Salicylate Sent. ko1 16:12 Teressa Almodovar, EITAN is Primary Nurse. ko1 16:31 Urinalysis w/ reflexes Sent. ko1 16:31 Urine Drug Screen Sent. ko1 16:31 No provider procedures requiring assistance completed. Initial lab(s) drawn, by ms, ko1 sent to lab. Urine collected: clean catch specimen, clear. Inserted saline lock: 20 gauge in left antecubital area, using aseptic technique. Blood collected. Flushed with 10 mL NS. 16:33 Patient has correct armband on for positive identification. Bed in low position. Call ko1 light in reach. Side rails up X2. Seizure precautions initiated. Provided Education on: call light. Client placed on continuous cardiac and pulse oximetry monitoring. NIBP monitoring applied. satellite project site monitor on. Door closed. Noise minimized. Lights dimmed. Warm blanket given. Pillow given. Assisted with urinal. 16:36 CT Head C Spine In Process Unspecified. EDMS 16:54 Bayron Tse MD is Referral Physician. fariha 18:29 IV discontinued, intact, bleeding controlled, No redness/swelling at site. Pressure ko1 dressing applied. Administered Medications: 16:22 Drug: NS 0.9% IV (20 ml/kg) 20 ml/kg IV at 1 bolus once; to be given as a bolus over 90 ko1 minutes Route: IV; Rate: 1 bolus; Site: left antecubital; 18:31 Follow up: Response: No adverse reaction; IV Status: Completed infusion; IV Intake: ko1 2730ml 16:31 Drug: Keppra IV 2000 mg IV at per protocol once Route: IV; Rate: per protocol; Site: ko1 left antecubital; 16:56 Follow up: Response: No adverse reaction; IV Status: Completed infusion; IV Intake: ko1 250ml 16:31 Drug: Ativan IVP 2 mg IVP once Route: IVP; Site: left antecubital; ko1 16:46 Follow up: Response: No adverse reaction ko1 Medication: 16:33 VIS not applicable for this client. ko1 Intake: 16:56 IV: 250ml; Total: 250ml. ko1 18:31 IV: 2730ml; Total: 2980ml. ko1 Outcome: 16:54 Discharge ordered by . fariha 18:29 Discharged to home ambulatory, ko1 18:29 Condition: stable 18:29 Discharge instructions given to patient, Instructed on discharge instructions, follow up and referral plans. medication usage, Demonstrated understanding of instructions, follow-up care, medications, Prescriptions given X 1, 18:31 Patient left the ED. ko1 Signatures: Dispatcher [employer] EDMS Juan Antonio Newell MD MD cha Rivera, Mary, Reg Reg mr Lila Nichole RN RN kc6 Teressa Almodovar, RN RN ko1
--- NOTE | 2024-01-31 16:55 | EDPHYS ---
Physician Documentation [facility] Name: Morgan Mckeon Age: 33 yrs Sex: Male : 1990 Arrival Date: 01/31/2024 Time: 15:25 Bed 2 Private MD: Juan Antonio Howell HPI: 01/30 16:30 This 33 yrs old Male presents to ER via Wheelchair with complaints of Seizure.fariha 16:30 The patient presents with a history of multiple seizures, a total of 3. Character of fariha seizure(s): Loss of consciousness: the patient did not lose consciousness, Motor activity: focal activity, blank stare, Incontinence: none, Apnea: the patient did not experience apnea, Circulation: the patient did not experience evidence of pulse disturbance. Seizure onset: today. Context: the seizure(s) was witnessed, by family, occurred at home. Seizure Hx: Cause: infection. Associated injury: Head/face:. Current symptoms: Currently, the patient is not experiencing any symptoms, the patient feels back to baseline. The patient has experienced similar episodes in the past, several times. Historical: - Allergies: 15:46 No Known Allergies; kc6 - PMHx: 15:46 Anxiety; Bipolar disorder; Hypertensive disorder; schizoaffective disorder; Seizure; kc6 - PSHx: 15:46 ear tube; kc6 - Immunization history:: Adult Immunizations up to date. - Infectious Disease History:: Denies. - Social history:: Smoking status: Patient reports use of chewing tobacco. - Family history:: not pertinent. ROS: 16:30 Constitutional: Negative for fever, chills, and weight loss, Eyes: Negative for injury, fariha pain, redness, and discharge, ENT: Negative for injury, pain, and discharge, Neck: Negative for injury, pain, and swelling, Cardiovascular: Negative for chest pain, palpitations, and edema, Respiratory: Negative for shortness of breath, cough, wheezing, and pleuritic chest pain, Abdomen/GI: Negative for abdominal pain, nausea, vomiting, diarrhea, and constipation, Back: Negative for injury and pain, : Negative for injury, bleeding, discharge, and swelling, MS/Extremity: Negative for injury and deformity, Skin: Negative for injury, rash, and discoloration, Psych: Negative for depression, anxiety, suicide ideation, homicidal ideation, and hallucinations, Allergy/Immunology: Negative for hives, rash, and allergies, Endocrine: Negative for neck swelling, polydipsia, polyuria, polyphagia, and marked weight changes, Hematologic/Lymphatic: Negative for swollen nodes, abnormal bleeding, and unusual bruising, 16:30 Neuro: Positive for seizure activity, Exam: 16:30 Constitutional: This is a well developed, well nourished patient who is awake, alert, fariha and in no acute distress. Head/Face: Normocephalic, atraumatic. Eyes: Pupils equal round and reactive to light, extra-ocular motions intact. Lids and lashes normal. Conjunctiva and sclera are non-icteric and not injected. Cornea within normal limits. Periorbital areas with no swelling, redness, or edema. ENT: Nares patent. No nasal discharge, no septal abnormalities noted. Tympanic membranes are normal and external auditory canals are clear. Oropharynx with no redness, swelling, or masses, exudates, or evidence of obstruction, uvula midline. Mucous membranes moist. Neck: Trachea midline, no thyromegaly or masses palpated, and no cervical lymphadenopathy. Supple, full range of motion without nuchal rigidity, or vertebral point tenderness. No Meningismus. Chest/axilla: Normal chest wall appearance and motion. Nontender with no deformity. No lesions are appreciated. Cardiovascular: Regular rate and rhythm with a normal S1 and S2. No gallops, murmurs, or rubs. Normal PMI, no JVD. No pulse deficits. Respiratory: Lungs have equal breath sounds bilaterally, clear to auscultation and percussion. No rales, rhonchi or wheezes noted. No increased work of breathing, no retractions or nasal flaring. Abdomen/GI: Soft, non-tender, with normal bowel sounds. No distension or tympany. No guarding or rebound. No evidence of tenderness throughout. Back: No spinal tenderness. No costovertebral tenderness. Full range of motion. Male : Normal genitalia with no discharge or lesions. Skin: Warm, dry with normal turgor. Normal color with no rashes, no lesions, and no evidence of cellulitis. MS/ Extremity: Pulses equal, no cyanosis. Neurovascular intact. Full, normal range of motion. Neuro: Awake and alert, GCS 15, oriented to person, place, time, and situation. Cranial nerves II-XII grossly intact. Motor strength 5/5 in all extremities. Sensory grossly intact. Cerebellar exam normal. Normal gait. Psych: Awake, alert, with orientation to person, place and time. Behavior, mood, and affect are within normal limits. 16:30 ECG was reviewed by the Attending Physician. 16:30 Neuro: Orientation: is normal, appropriate for stated age, no acute changes, Mentation: is normal, appropriate for stated age, no acute changes, Memory: is normal, appropriate for stated age, no acute changes, Cranial nerves: grossly normal, is grossly normal based on the patient's age, no acute changes, Cerebellar function: is grossly normal, is grossly normal based on the patient's age, no acute changes, Motor: is normal, is grossly normal based on the patient's age, no acute changes, moves all fours, strength is normal, Gait: is steady, appropriate for age, Vital Signs: 15:45 BP 143 / 87; Pulse 73; Resp 18; Temp 98.6(O); Pulse Ox 98% on R/A; kc6 16:12 Weight 136.5 kg; ko1 16:33 BP 121 / 86; Pulse 75; Resp 15; Pulse Ox 99% on R/A; ko1 17:38 BP 122 / 66; Pulse 72; Resp 16; Pulse Ox 99% ; ko1 18:29 BP 112 / 68; Pulse 78; Resp 16; Pulse Ox 99% ; ko1 Donnell Coma Score: 15:46 Eye Response: spontaneous(4). Motor Response: obeys commands(6). Verbal Response: kc6 oriented(5). Total: 15. MDM: 15:36 Medical Screening Exam initiated fariha 16:35 Differential diagnosis: cerebral vascular accident, drug overdose, cardiac arrhythmia, fariha seizure, TIA. Data reviewed: vital signs, nurses notes, lab test result(s), EKG, radiologic studies, plain films. Consideration of Admission/Observation Escalation of care including admission/observation considered. I considered the following discharge prescriptions or medication management in the emergency department Medications were administered in the Emergency Department. See MAR. Independent interpretation of the following test(s) in the Emergency Department EKG: See my EKG interpretation above. Test considered but Not performed: MRI: no mri. Care significantly affected by the following chronic conditions: Hypertension, Obesity, anxiety, bipolar, schizo. 01/30 15:37 Order name: Acetaminophen; Complete Time: 16:52 [facility] 01/30 15:37 Order name: Basic Metabolic Panel; Complete Time: 16:52 [facility] 01/30 15:37 Order name: CBC with Diff; Complete Time: 16:52 [facility] 01/30 15:37 Order name: ETOH Level; Complete Time: 16:52 fariha 01/30 15:37 Order name: Hepatic Function; Complete Time: 16:52 01/30 15:37 Order name: PT-INR; Complete Time: 16:52 01/30 15:37 Order name: Ptt, Activated; Complete Time: 16:52 01/30 15:37 Order name: Salicylate [facility] 01/30 15:37 Order name: Urinalysis w/ reflexes; Complete Time: 16:52 [facility] 01/30 15:37 Order name: Urine Drug Screen; Complete Time: 16:52 [facility] 01/30 15:47 Order name: CT Head C Spine [facility] 01/30 15:37 Order name: EKG - Nurse/Tech; Complete Time: 16:49 01/30 15:37 Order name: IV Saline Lock; Complete Time: 16:09 01/30 15:37 Order name: Labs collected and sent; Complete Time: 16:09 [facility] 01/30 15:37 Order name: Suicide Screening ([place]); Complete Time: 16:09 [facility] 01/30 15:37 Order name: Seizure Precautions; Complete Time: 16:11 fariha EC:52 Rate is 72 beats/min. Rhythm is regular. QRS [place] is Normal. MI interval is normal. QRS fariha interval is normal. QT interval is normal. No Q waves. T waves are Normal. No ST changes noted. Clinical impression: NSR w/ Non-specific ST/T Changes and No evidence of ischemia. Interpreted by me. Reviewed by me. Administered Medications: 16:22 Drug: NS 0.9% IV (20 ml/kg) 20 ml/kg IV at 1 bolus once; to be given as a bolus over 90 ko1 minutes Route: IV; Rate: 1 bolus; Site: left antecubital; 18:31 Follow up: Response: No adverse reaction; IV Status: Completed infusion; IV Intake: ko1 2730ml 16:31 Drug: Keppra IV 2000 mg IV at per protocol once Route: IV; Rate: per protocol; Site: ko1 left antecubital; 16:56 Follow up: Response: No adverse reaction; IV Status: Completed infusion; IV Intake: ko1 250ml 16:31 Drug: Ativan IVP 2 mg IVP once Route: IVP; Site: left antecubital; ko1 16:46 Follow up: Response: No adverse reaction ko1 Disposition Summary: 01/31/24 16:54 Discharge Ordered Notes: Location: Home fariha Problem: new fariha Symptoms: have improved fariha Condition: Stable fariha Diagnosis - Epileptic seizures related to external causes, not intractable, without status fariha epilepticus Followup: fariha - With: Private Physician - When: 2 - 3 days - Reason: Recheck today's complaints, Continuance of care, Re-evaluation by your physician Followup: fariha - With: Bayron Tse MD - When: 2 - 3 days - Reason: Recheck today's complaints, Re-evaluation by your physician Discharge Instructions: - Discharge Summary Sheet fariha - Epilepsy fariha - Seizure, Adult fariha - Seizure, Adult, [id number] fariha - Epilepsy, Vazj-hi-[id number] fariha Forms: - Medication Reconciliation Form fariha - Antibiotic Education fariha - Prescription Opioid Use fariha - Patient Portal Instructions fariha - Leadership Thank You Letter [facility] Prescriptions: - Keppra 750 mg Oral tablet - take 1 tablet ORAL route every 12 hours; 60 tablet; Refills: 0, Product fariha Selection Permitted Signatures: Dispatcher [employer] Juan Antonio Onofre MD MD cha Campbell, Kaitlyn, RN RN kc6 Teressa Almodovar RN RN ko1 Corrections: (The following items were deleted from the chart) 15:38 15:38 ACETAMINOPHEN+C.LAB.BRZ ordered. EDMS EDMS 15:38 15:38 BASIC METABOLIC PANEL+C.LAB.BRZ ordered. EDMS EDMS 15:38 15:38 CBC+H.LAB.BRZ ordered. EDMS EDMS 15:38 15:38 ETHANOL+C.LAB.BRZ ordered. EDMS EDMS 15:38 15:38 HEPATIC FUNCTION+C.LAB.BRZ ordered. EDMS EDMS 15:38 15:38 PROTIME (+INR)+COAG.LAB.BRZ ordered. EDMS EDMS 15:38 15:38 PTT, ACTIVATED+COAG.LAB.BRZ ordered. EDMS EDMS 15:38 15:38 SALICYLATE+C.LAB.BRZ ordered. EDMS EDMS 15:38 15:38 Urinalysis+U.LAB.BRZ ordered. EDMS EDMS 15:38 15:38 URINE DRUG SCREEN+UC.LAB.BRZ ordered. EDMS EDMS 15:48 15:48 Head C Spine MPR Wo Con+CT.RAD.BRZ ordered. EDMS EDMS
--- NOTE | 2024-01-31 17:01 | RAD REPORT ---
EXAMINATION: CT HEAD WITHOUT CONTRAST CT CERVICAL SPINE WITHOUT CONTRAST CLINICAL INDICATION: Head and neck injury status post fall. Head and neck pain. Seizure TECHNIQUE: Axial CT images from the skull base to the vertex without intravenous contrast. Axial CT i mages through the cervical spine were obtained without intravenous contrast. Sagittal and coronal reformatted images were created from the data set. Coronal and sagittal reformatted images were creat ed from the data set. One or more of the following dose reduction techniques were used: Automated exposure control, adjustment of the mA and/or kV according to patient size, and/or iterative reconstr uction. Unless otherwise specified, incidental findings do not require dedicated imaging follow-up. [id number]. Comparison: January 11, 2024 FINDINGS: Intracranial bleed not noted. Ventricles are normal in caliber. Right temporal hypodensity without significant change compatible with gliosis. No extra-axial fluid collection. No fluid within the sinuses/mastoids No fracture or dislocation is seen involving the cervical spine. IMPRESSION: No acute intracranial abnormality noted A cervical fracture is not seen. If the patient continues to have symptoms to suggest acute FIREMAN/spinal pathology then MRI would be rec ommended
[2024-02-01 06:04] VITALS: TEMP 98.6
[2024-02-01 06:05] VITALS: O2SAT 99
[2024-02-01 06:07] VITALS: BP 112/68
--- NOTE | 2024-02-02 15:06 | EKG ---
Test Date: 2024-01-31 Test Time: 16:46:51 Anodic Treater: NEMESIO MEASUREMENT RESULTS: Intervals: Rate: 72 AZ: 148 QRSD: 116 QT: 382 QTc: 418 Yulan: P: 26 AZ: 148 QRS: 95 T: 26 INTERPRETIVE STATEMENTS: Normal sinus rhythm Rightward axis Incomplete right bundle branch block Inferior infarct, age undetermined Cannot rule out Anterior infarct, age undetermined Abnormal ECG Compared to ECG 01/11/2024 19:05:39 Right-axis deviation now present Incomplete right bundle-branch block now present Myocardial infarct finding now present Left-axis deviation no longer present Electronically Signed On 02-02-24 15:05:52 CDT by Higinio Gross
== END 2024-01-31 18:31 | disposition home or self-care (01) ==
LOC: ER 15:25
DX: G40.509 Epileptic seizures related to external causes, not intractable, without status epilepticus (principal); F25.9 Schizoaffective disorder, unspecified; F17.220 Nicotine dependence, chewing tobacco, uncomplicated
CPT/HCPCS: 96365; 96361; 93005; 85025; 81001; 80048; 36415; 85610; 80076; 85730; 80307; 70450; 72125; 96375; 99285; 80143; 80179; 82077; J1953; J7050; J7030

== ENCOUNTER 2024-04-21 16:58 | Emergency (ER) | payer SELFPAY ==
--- NOTE | 2024-04-21 18:52 | RAD REPORT ---
EXAMINATION: CT HEAD WITHOUT CONTRAST CT CERVICAL SPINE WITHOUT CONTRAST CLINICAL INDICATION: Headache. Blurred vision. Seizure. Neck pain TECHNIQUE: Axial CT images from the skull base to the vertex without intravenous contrast. Axial CT i mages through the cervical spine were obtained without intravenous contrast. Sagittal and coronal reformatted images were created from the data set. Coronal and sagittal reformatted images were creat ed from the data set. One or more of the following dose reduction techniques were used: Automated exposure control, adjustment of the mA and/or kV according to patient size, and/or iterative reconstr uction. Unless otherwise specified, incidental findings do not require dedicated imaging follow-up. [id number]. Comparison: January 2025 FINDINGS: An intracranial bleed is not seen. Ventricles are normal in caliber. Moderate right temporal lobe gliosis unchanged. No extra-axial fluid collection. No fluid within the sinuses/mastoids No fracture or dislocation is seen involving the cervical spine. No high-grade central/foraminal stenosis noted. IMPRESSION: No acute intracranial abnormality noted A cervical fracture is not seen. No high-grade central/foraminal stenosis If the patient continues to have symptoms to suggest acute INTERNAL MEDICINE NURSE/spinal pathology then MRI would be rec ommended
[2024-04-21] MEDS ORDERED: CEFTRIAXONE 1000 MG/VIAL ONE (19:51)
[2024-04-21] MEDS ORDERED: KETOROLAC 30 MG/ML INJ ONE (19:52)
[2024-04-21 20:18] LABS: Absolute Basophils 0.1 K/uL (0-0.5); Absolute Eosinophils 0.2 K/uL (0-0.5); Absolute Lymphocytes (CBC) 2.8 K/uL (0.7-4.9); Absolute Monocytes 0.7 K/uL (0.1-1.3); Basophils % 0.7 % (0-1.3); Eosinophils % 1.5 % (0-4.4); Hematocrit 42.1 % (39.6-49.0); Hemoglobin 14.2 g/dL (13.6-17.9); Lymphocytes % 28.9 % (15.3-44.8); MCH 28.3 pg (27.0-35.0); MCHC 33.7 g/dL (32.0-36.0); MCV 84.1 fL (80-100); MPV 8.7 fL (7.6-11.3); Monocytes % 7.5 % (3.3-12.3); Neutrophils % 61.4 % (41.7-73.7); Platelets 441 thou/uL (152-406); Red Cell Distribution Width 13.3 % (12.1-15.2)
[2024-04-21 20:42] LABS: ALT/SGPT 40 U/L (16-61); AST/SGOT 24 U/L (15-37); Albumin 3.8 g/dL (3.4-5.0); Albumin/Globulin Ratio 0.9 (1.1-1.8); Alkaline Phosphatase 84 U/L (45-117); Anion Gap 4.6 mEq/L (5.0-15.0); BUN Blood Urea Nitrogen 10 mg/dL (7-18); Bicarbonate 30 mEq/L (21-32); Bilirubin Total 0.4 mg/dL (0.2-1.0); Globulin 4.1 g/dL (2.3-3.5); Glomerular Filtration Rate 96 ml/min (=/>90); Glucose Level 94 mg/dL (74-106); Potassium 4.6 mEq/L (3.5-5.1); Protein, Total 7.9 g/dL (6.4-8.2); Sodium Level 137 mEq/L (136-145)
[2024-04-21 20:43] LABS: Phenytoin (Dilantin) Level < 0.5 mcg/mL (10.0-20.0); Valproic Acid (Depakene) Level < 3.0 mcg/mL (50.0-100.0)
--- NOTE | 2024-04-21 20:48 | ER ---
Nurse's Notes [facility] Name: Morgan Mckeon Age: 33 yrs Sex: Male : 1990 Arrival Date: 04/21/2024 Time: 16:58 Bed 17 Private MD: Diagnosis: Acute serous otitis media, right ear;Strain of muscle, fascia and tendon at neck level, initial encounter Presentation: 04/21 17:37 Chief complaint: Headache, pain behind left eye, right ear pain, blurred vision, and hb sore throat x 2 days. Hx of migraines, feel similar to previous migraine. Coronavirus screen: Client presents with at least one sign or symptom that may indicate coronavirus-19. Provider contacted for isolation considerations. Ebola Screen: No symptoms or risks identified at this time. Initial Sepsis Screen: Does the patient meet any 2 criteria? No. Patient's initial sepsis screen is negative. Does the patient have a suspected source of infection? No. Patient's initial sepsis screen is negative. Risk Assessment: Do you want to hurt yourself or someone else? Patient reports no desire to harm self or others. Onset of symptoms was April 20, 2024. 17:37 Method Of Arrival: Ambulatory hb 17:37 Acuity: JOSE 3 hb Triage Assessment: 20:07 General: Behavior is calm, cooperative. kj2 Historical: - Allergies: 17:39 SUMATRIPTAN; hb - PMHx: 17:39 Bipolar disorder; Hypertensive disorder; schizoaffective disorder; Seizure; Anxiety; hb Migraine; - PSHx: 17:39 ear tube; hb - Immunization history:: Adult Immunizations up to date. - Infectious Disease History:: Denies. - Social history:: Smoking status: Patient reports the use of cigarette tobacco products. - Family history:: not pertinent. Screenin:50 [facility] ED Fall Risk Assessment (Adult) History of falling in the last 3 months, kj2 including since admission No falls in past 3 months (0 pts) Confusion or Disorientation No (0 pts) Intoxicated or Sedated No (0 pts) Impaired Gait No (0 pts) Mobility Assist Device Used No (0 pt) Altered Elimination No (0 pt) Score/Fall Risk Level 0 - 2 = Low Risk Maintained a safe environment, Hourly rounding (assess needs \T\ fall precautionary measures) done. Abuse screen: Denies threats or abuse. Denies injuries from another. Nutritional screening: No deficits noted. Tuberculosis screening: No symptoms or risk factors identified. Assessment: 19:40 General: Appears in no apparent distress. uncomfortable. Pain: Complains of pain in kj2 right ear and neck and left lateral aspect of neck and right lateral aspect of neck and left sternocleidomastoid and right sternocleidomastoid Pain currently is 8 out of 10 on a pain scale. Neuro: Level of Consciousness is awake, alert, obeys commands, Oriented to person, place, time, situation. Cardiovascular: Patient's skin is warm and dry. Respiratory: Airway is patent Respiratory effort is unlabored. GI: No signs and/or symptoms were reported involving the gastrointestinal system. : No signs and/or symptoms were reported regarding the genitourinary system. EENT: Reports pain when swallowing. 21:02 Reassessment: Patient appears in no apparent distress at this time. Patient and/or kj2 family updated on plan of care and expected duration. Pain level reassessed. Patient is alert, oriented x 3, equal unlabored respirations, skin warm/dry/pink. Vital Signs: 17:37 BP 171 / 99; Pulse 69; Resp 18; Temp 98.4(O); Pulse Ox 100% on R/A; Weight 133.81 kg; hb Height 6 ft. 0 in. ; Pain 9/10; 20:04 BP 138 / 89; Pulse 56; Resp 18; Temp 98.4; kj2 21:04 BP 129 / 82; Pulse 60; Resp 18; Temp 98.2; Pulse Ox 98% on R/A; kj2 17:37 Body Mass Index 40.01 (133.81 kg, 182.88 cm) hb 17:37 Pain Scale: Adult hb ED Course: 17:01 Patient arrived in ED. mr 17:14 Juan Antonio Newell MD is Attending Physician. fariha 17:39 Triage completed. hb 17:39 Arm band placed on. hb 18:38 CT Head C Spine In Process Unspecified. EDMS 19:48 Lynne Lafleur, EITAN is Primary Nurse. kj2 20:06 Patient has correct armband on for positive identification. Bed in low position. Call kj2 light in reach. Provided Education on: call light. 20:13 Inserted saline lock: 20 gauge in left antecubital area, using aseptic technique. Blood oe collected. Flushed with 10 mL NS. 20:15 Missed attempt(s): 20 gauge in left antecubital area. vk 20:21 CBC with Diff Sent. oe 20:21 Comprehensive Metabolic Panel Sent. oe 20:47 Bayron Tse MD is Referral Physician. fariha 20:47 Cordell King MD is Referral Physician. fariha 21:04 No provider procedures requiring assistance completed. IV discontinued, intact, kj2 bleeding controlled, No redness/swelling at site. Pressure dressing applied. Administered Medications: 20:07 Drug: Ketorolac IM 60 mg IM once Route: IM; Site: right deltoid; kj2 21:02 Follow up: Response: No adverse reaction kj2 20:08 Drug: Rocephin (cefTRIAXone) IM 1 grams IM once Route: IM; Site: right vastus lateralis;kj2 21:03 Follow up: Response: No adverse reaction kj2 Medication: 20:06 VIS not applicable for this client. kj2 Outcome: 20:48 Discharge ordered by . fariha 21:04 Discharged to home ambulatory, kj2 21:04 Condition: stable 21:04 Discharge instructions given to patient, Instructed on discharge instructions, follow up and referral plans. Demonstrated understanding of instructions, follow-up care, 21:15 Patient left the ED. kj2 Signatures: Dispatcher [employer] EDMS Juan Antonio Newell MD MD cha Rivera, Mary, Reg Reg mr Kim Badillo, RN RN Sergei Mensah oe Shannan Casanova Krystal, RN RN kj2 Corrections: (The following items were deleted from the chart) 17:40 17:37 Chief complaint: Headache, pain behind left eye, right ear pain, blurred vision, hb and sore throat x 2 days. hb
--- NOTE | 2024-04-21 20:48 | EDPHYS ---
Physician Documentation [facility] Name: Morgan Mckeon Age: 33 yrs Sex: Male : 1990 Arrival Date: 04/21/2024 Time: 16:58 Bed 17 Private MD: ED Physician Juan Antonio Newell HPI: 04/21 18:14 This 33 yrs old Male presents to ER via Ambulatory with complaints of Stiff fariha Neck, Ear Pain. 18:14 The patient or guardian complains of pain, that is acute. The symptoms are located on fariha the right sternocleidomastoid, left sternocleidomastoid, right lateral aspect of neck and left lateral aspect of neck. Onset: The symptoms/episode began/occurred last night. Context: The problem was sustained at home, The neck injury/problem resulted from from unknown cause. The pain does not radiate. Modifying factors: The symptoms are alleviated by remaining still, the symptoms are aggravated by movement. Severity of symptoms: At their worst the symptoms were mild, moderate, in the emergency department the symptoms are unchanged. The patient has experienced similar episodes in the past, a few times. Historical: - Allergies: 17:39 SUMATRIPTAN; hb - PMHx: 17:39 Bipolar disorder; Hypertensive disorder; schizoaffective disorder; Seizure; Anxiety; hb Migraine; - PSHx: 17:39 ear tube; hb - Immunization history:: Adult Immunizations up to date. - Infectious Disease History:: Denies. - Social history:: Smoking status: Patient reports the use of cigarette tobacco products. - Family history:: not pertinent. ROS: 18:14 Constitutional: Negative for fever, chills, and weight loss, Eyes: Negative for injury, fariha pain, redness, and discharge, ENT: Negative for injury, pain, and discharge, Cardiovascular: Negative for chest pain, palpitations, and edema, Respiratory: Negative for shortness of breath, cough, wheezing, and pleuritic chest pain, Abdomen/GI: Negative for abdominal pain, nausea, vomiting, diarrhea, and constipation, Back: Negative for injury and pain, : Negative for injury, bleeding, discharge, and swelling, MS/Extremity: Negative for injury and deformity, Skin: Negative for injury, rash, and discoloration, Neuro: Negative for headache, weakness, numbness, tingling, and seizure, Psych: Negative for depression, anxiety, suicide ideation, homicidal ideation, and hallucinations, Allergy/Immunology: Negative for hives, rash, and allergies, Endocrine: Negative for neck swelling, polydipsia, polyuria, polyphagia, and marked weight changes, Hematologic/Lymphatic: Negative for swollen nodes, abnormal bleeding, and unusual bruising, 18:14 ENT: Positive for ear pain, of the right ear, 18:14 Neck: Positive for pain with movement, pain at rest, tenderness, of the left lateral aspect of neck and right lateral aspect of neck, Exam: 18:14 Constitutional: This is a well developed, well nourished patient who is awake, alert, fariha and in no acute distress. Head/Face: Normocephalic, atraumatic. Eyes: Pupils equal round and reactive to light, extra-ocular motions intact. Lids and lashes normal. Conjunctiva and sclera are non-icteric and not injected. Cornea within normal limits. Periorbital areas with no swelling, redness, or edema. Chest/axilla: Normal chest wall appearance and motion. Nontender with no deformity. No lesions are appreciated. Cardiovascular: Regular rate and rhythm with a normal S1 and S2. No gallops, murmurs, or rubs. Normal PMI, no JVD. No pulse deficits. Respiratory: Lungs have equal breath sounds bilaterally, clear to auscultation and percussion. No rales, rhonchi or wheezes noted. No increased work of breathing, no retractions or nasal flaring. Abdomen/GI: Soft, non-tender, with normal bowel sounds. No distension or tympany. No guarding or rebound. No evidence of tenderness throughout. Back: No spinal tenderness. No costovertebral tenderness. Full range of motion. Male : Normal genitalia with no discharge or lesions. Skin: Warm, dry with normal turgor. Normal color with no rashes, no lesions, and no evidence of cellulitis. MS/ Extremity: Pulses equal, no cyanosis. Neurovascular intact. Full, normal range of motion., bilateral aka Neuro: Awake and alert, GCS 15, oriented to person, place, time, and situation. Cranial nerves II-XII grossly intact. Motor strength 5/5 in all extremities. Sensory grossly intact. Cerebellar exam normal. Normal gait. Psych: Awake, alert, with orientation to person, place and time. Behavior, mood, and affect are within normal limits. 18:14 ENT: TM's: dullness, on the right, erythema, that is mild, on the right, Nose: is normal, Mouth: is normal, no acute changes, Lips: normal, moist, Oral mucosa: normal, pink and intact, moist, Gums: normal with healthy appearance, Posterior pharynx: 18:14 Neck: External neck: is normal, C-spine: appears grossly normal, no acute changes, Trachea: is midline with no obvious abnormalities, ROM/movement: pain, with any movement, with rotation to the left, with rotation to the right, with extension, with flexion, limited range of motion, that is mild, in any direction, Meningeal signs: are not present, nuchal rigidity, is not appreciated, Lymph nodes: no appreciated lymphadenopathy, increase pain along traps, Vital Signs: 17:37 BP 171 / 99; Pulse 69; Resp 18; Temp 98.4(O); Pulse Ox 100% on R/A; Weight 133.81 kg; hb Height 6 ft. 0 in. ; Pain 9/10; 20:04 BP 138 / 89; Pulse 56; Resp 18; Temp 98.4; kj2 21:04 BP 129 / 82; Pulse 60; Resp 18; Temp 98.2; Pulse Ox 98% on R/A; kj2 17:37 Body Mass Index 40.01 (133.81 kg, 182.88 cm) hb 17:37 Pain Scale: Adult hb MDM: 17:14 Medical Screening Exam initiated fariha 18:20 Differential diagnosis: bacterial meningitis, Cervical Raiculopathy Cervical fariha Spondylosis cervical strain, fracture. Data reviewed: vital signs, nurses notes, radiologic studies, CT scan. Consideration of Admission/Observation Escalation of care including admission/observation considered. I considered the following discharge prescriptions or medication management in the emergency department Medications were administered in the Emergency Department. See MAR. Independent interpretation of the following test(s) in the Emergency Department CT Scan: My interpretation is ct head/ c spine. Test considered but Not performed: MRI: no mri. Historians other than the Patient: pt well informed. Care significantly affected by the following chronic conditions: Hypertension, bipolar, schizoaffective, seizure, migraine. 04/21 18:26 Order name: CBC with Diff; Complete Time: 20:28 [facility] 04/21 18:26 Order name: Comprehensive Metabolic Panel; Complete Time: 20:46 [facility] 04/21 18:26 Order name: Tegretol Level; Complete Time: 20:46 [facility] 04/21 18:26 Order name: Depakote; Complete Time: 20:46 [facility] 04/21 18:26 Order name: Dilantin; Complete Time: 20:46 [facility] 04/21 17:59 Order name: CT Head C Spine; Complete Time: 19:21 [facility] 04/21 18:26 Order name: Misc. Order: lab to draw; Complete Time: 20:08 [facility] Administered Medications: 20:07 Drug: Ketorolac IM 60 mg IM once Route: IM; Site: right deltoid; kj2 21:02 Follow up: Response: No adverse reaction kj2 20:08 Drug: Rocephin (cefTRIAXone) IM 1 grams IM once Route: IM; Site: right vastus lateralis;kj2 21:03 Follow up: Response: No adverse reaction kj2 Disposition Summary: 04/21/24 20:48 Discharge Ordered Notes: Location: Home fariha Problem: new fariha Symptoms: have improved fariha Condition: Stable fariha Diagnosis - Acute serous otitis media, right ear fariha - Strain of muscle, fascia and tendon at neck level, initial encounter fariha Followup: fariha - With: Private Physician - When: 2 - 3 days - Reason: Recheck today's complaints, Continuance of care, Re-evaluation by your physician Followup: fariha - With: Bayron Tse MD - When: 2 - 3 days - Reason: Recheck today's complaints, Continuance of care, Re-evaluation by your physician Followup: fariha - With: Cordell King MD - When: 2 - 3 days - Reason: Recheck today's complaints, Re-evaluation by your physician Discharge Instructions: - Discharge Summary Sheet fariha - Otitis Media, Adult fariha - Musculoskeletal Pain fariha - Otitis Media, Adult, [id number] [facility] Forms: - Medication Reconciliation Form fariha - Antibiotic Education fariha - Prescription Opioid Use fariha - Patient Portal Instructions fariha - Leadership Thank You Letter fariha - Work release form [facility] Prescriptions: - Augmentin 875-125 mg Oral Tablet - take 1 tablet ORAL route every 12 hours for 10 days; 20 tablet; Refills: 0, fariha Product Selection Permitted - Ibuprofen 600 mg Oral tablet - take 1 tablet ORAL route every 6 hours As needed take with food; 20 tablet; fariha Refills: 0, Product Selection Permitted Signatures: Dispatcher [employer] EDJuan Antonio Vazquez MD MD cha Baxter, Heather, RN RN Lynne Lafleur RN RN kj2 Corrections: (The following items were deleted from the chart) 18:26 18:26 CBC+H.LAB.BRZ ordered. EDMS EDMS 18:26 18:26 COMPREHENSIVE METABOLIC PANEL+C.LAB.BRZ ordered. EDMS EDMS 18:26 18:26 CARBAMAZEPINE (TEGRETOL)+C.LAB.BRZ ordered. EDMS EDMS 18:26 18:26 VALPROIC ACID (DEPAKOTE)+C.LAB.BRZ ordered. EDMS EDMS 18:26 18:26 PHENYTOIN (DILANTIN)+C.LAB.BRZ ordered. EDMS EDMS
[2024-04-24 01:43] VITALS: BP 129/82; TEMP 98.2; O2SAT 98
== END 2024-04-21 21:15 | disposition home or self-care (01) ==
LOC: ER 16:58
DX: H65.01 Acute serous otitis media, right ear (principal); S16.1XXA Strain of muscle, fascia and tendon at neck level, initial encounter
CPT/HCPCS: 36415; 70450; 72125; 80053; 80156; 80164; 80185; 85025; 96372; 99284; J0696

== ENCOUNTER 2024-11-30 21:29 | Emergency (ER) | payer OTHER ==
[2024-11-30 23:25] LABS: Absolute Lymphocytes (CBC) 2.6 K/uL (0.7-4.9); Hematocrit 41.3 % (39.6-49.0); Hemoglobin 14.2 g/dL (13.6-17.9); MCH 27.9 pg (27.0-35.0); MCHC 34.3 g/dL (32.0-36.0); MCV 81.2 fL (80-100); MPV 8.3 fL (7.6-11.3); Nucleated RBC Absolute Count 0.0 (0-0); Nucleated Red Blood Cells % 0.1 % (0-0); RBC Red Blood Cell Count 5.09 M/uL (4.33-5.43); White Blood Count 12.90 thou/uL (4.3-10.9)
[2024-11-30 23:37] LABS: Influenza A Ag Negative; Influenza B Ag Negative; SARS-CoV-2 Antigen Rapid Res Negative (Negative)
[2024-11-30 23:40] LABS: Anion Gap 8.4 mEq/L (5.0-15.0); BUN Blood Urea Nitrogen 11.0 mg/dL (7-18); Glucose Level 131.0 mg/dL (74-106); Potassium 3.4 mEq/L (3.5-5.1); Troponin High Sensitivity 8.6 pg/mL (<58.9)
--- NOTE | 2024-12-01 00:08 | ER ---
Nurse's Notes [facility] Name: Morgan Mckeon Age: 34 yrs Sex: Male : 1990 Arrival Date: 11/30/2024 Time: 21:29 Bed 15 Private MD: Zaid Ribera Diagnosis: Essential (primary) hypertension Presentation: 11/30 21:41 Chief complaint: Patient states: HANDS AND LEGS STIFF AND NUMB, UNABLE TO SWALLOW, lg3 BLOOD PRESSURE 177/106. Coronavirus screen: At this time, the client does not indicate any symptoms associated with coronavirus-19. Ebola Screen: No symptoms or risks identified at this time. Initial Sepsis Screen: Does the patient meet any 2 criteria? No. Patient's initial sepsis screen is negative. Does the patient have a suspected source of infection? No. Patient's initial sepsis screen is negative. Risk Assessment: Do you want to hurt yourself or someone else? Patient reports no desire to harm self or others. Onset of symptoms was November 30, 2024. 21:41 Method Of Arrival: Ambulatory lg3 21:41 Acuity: JOSE 3 lg3 Triage Assessment: 21:44 General: Appears in no apparent distress. Behavior is calm, cooperative, appropriate lg3 for age. Pain: Denies pain. Cardiovascular: Reports HIGH BP. Musculoskeletal: Reports numbness in right arm, left arm, right leg and left leg. Historical: - Allergies: 21:44 SUMATRIPTAN; lg3 - Home Meds: 12/01 01:00 Abilify oral [Active]; BuSpar Oral [Active]; Cymbalta oral [Active]; Keppra Oral kt5 [Active]; - PMHx: 11/30 21:44 Anxiety; Bipolar disorder; Hypertensive disorder; Migraine; schizoaffective disorder; lg3 Seizure; - PSHx: 21:44 ear tube; lg3 - Immunization history:: Adult Immunizations up to date. - Infectious Disease History:: Denies. - Social history:: Smoking status: Patient reports use of chewing tobacco. Screenin:00 [facility] ED Fall Risk Assessment (Adult) History of falling in the last 3 months, kt5 including since admission No falls in past 3 months (0 pts) Confusion or Disorientation No (0 pts) Intoxicated or Sedated No (0 pts) Impaired Gait No (0 pts) Mobility Assist Device Used No (0 pt) Altered Elimination No (0 pt) Score/Fall Risk Level 0 - 2 = Low Risk. Abuse screen: Denies threats or abuse. Denies injuries from another. Nutritional screening: No deficits noted. Tuberculosis screening: No symptoms or risk factors identified. Assessment: 22:00 General: Appears in no apparent distress. comfortable, Behavior is calm, cooperative, kt5 appropriate for age. Pain: Denies pain. Neuro: No deficits noted. Santiago Agitation-Sedation Scale (RASS): 0 - Alert and Calm Level of Consciousness is awake, alert, obeys commands, Oriented to person, place, time, situation. Cardiovascular: No deficits noted. Denies chest pain, Heart tones S1 S2 present Capillary refill < 3 seconds is brisk Clubbing of nail beds is absent JVD is absent Pulses are all present. Edema is absent. Rhythm is sinus rhythm. Respiratory: No deficits noted. Airway is patent Trachea midline Respiratory effort is even, unlabored, Respiratory pattern is regular, symmetrical. GI: No deficits noted. No signs and/or symptoms were reported involving the gastrointestinal system. Abdomen is round non-distended, Bowel sounds present X 4 quads. Abd is soft and non tender X 4 quads. : No deficits noted. No signs and/or symptoms were reported regarding the genitourinary system. EENT: No deficits noted. No signs and/or symptoms were reported regarding the EENT system. Derm: No deficits noted. No signs and/or symptoms reported regarding the dermatologic system. Skin is intact, is healthy with good turgor, Skin is dry, Skin is pink, warm \T\ dry. normal, Skin temperature is warm. Musculoskeletal: No deficits noted. No signs and/or symptoms reported regarding the musculoskeletal system. 23:08 Reassessment: Patient appears in no apparent distress at this time. Patient is alert, kt5 oriented x 3, equal unlabored respirations, skin warm/dry/pink. Patient denies pain at this time. Patient states feeling better. Patient states symptoms have improved. 23:56 Reassessment: Patient appears in no apparent distress at this time. Patient is alert, kt5 oriented x 3, equal unlabored respirations, skin warm/dry/pink. Patient denies pain at this time. Patient states feeling better. Patient states symptoms have improved. 12/01 00:07 General: provider at for reval. kt5 00:56 Reassessment: Patient appears in no apparent distress at this time. Patient is alert, kt5 oriented x 3, equal unlabored respirations, skin warm/dry/pink. Patient denies pain at this time. Patient states feeling better. Patient states symptoms have improved. Vital Signs: 11/30 21:41 BP 152 / 91; Pulse 91; Resp 17; Temp 98.4; Pulse Ox 98% on R/A; Weight 97.52 kg; Height lg3 6 ft. 0 in. ; 22:00 BP 146 / 78; Pulse 68; Resp 18; Pulse Ox 98% ; kt5 23:08 BP 140 / 70; Pulse 70; Resp 18; Pulse Ox 98% ; kt5 23:56 BP 148 / 81; Pulse 65; Resp 18 S; Pulse Ox 98% on R/A; kt5 12/01 00:56 BP 132 / 72; Pulse 72; Resp 18 S; Pulse Ox 99% on R/A; kt5 11/30 21:41 Body Mass Index 29.16 (97.52 kg, 182.88 cm) lg3 ED Course: 11/30 21:32 Patient arrived in ED. gm2 21:33 Zaid Ribera MD is Private Physician. gm2 21:33 She[facility] Lobato FNP-C [facility]. lg3 21:35 Juan Antonio Newell MD is Attending Physician. kb 21:44 Triage completed. lg3 21:44 Arm band placed on right wrist. lg3 22:00 Patient has correct armband on for positive identification. Fall risk band placed. Bed kt5 in low position. Call light in reach. Side rails up X 1. Client placed on continuous cardiac and pulse oximetry monitoring. NIBP monitoring applied. hearing aid dispenser on. Door closed. Noise minimized. Warm blanket given. Pillow given. 22:55 XRAY Chest (1 view) In Process Unspecified. EDMS 23:14 Inserted saline lock: 20 gauge in left antecubital area, using aseptic technique. Blood oe collected. Flushed with 10 mL NS. 23:15 Troponin HS Sent. oe 23:15 CBC with Diff Sent. oe 23:15 Basic Metabolic Panel Sent. oe 23:15 Group A Streptococcus Rapid Sent. oe 23:15 COVID-19 Ag + Flu A+B Ag Sent. oe 23:15 EKG done, by ED staff, reviewed by Sheyla ENGEL. oe 23:20 Jenna Hodge, RN is Primary Nurse. kt5 12/01 00:56 No provider procedures requiring assistance completed. IV discontinued, intact, kt5 bleeding controlled, No redness/swelling at site. Pressure dressing applied. Administered Medications: No medications were administered Medication: 11/30 22:00 VIS not applicable for this client. kt5 Outcome: 12/01 00:08 Discharge ordered by . richardson 00:59 Discharged to home ambulatory, kt5 00:59 Condition: improved 00:59 Discharge instructions given to patient, Instructed on discharge instructions, follow up and referral plans. Demonstrated understanding of instructions, follow-up care, 01:01 Patient left the ED. kt5 Signatures: Dispatcher [employer] EDMS Sheyla Lobato, MAREN SULFUR BURNER-CkSergei Saldivar Lacie, RN RN lg3 Anna Recio 2 Jenna Hodge, RN RN kt5
--- NOTE | 2024-12-01 00:08 | EDPHYS ---
Physician Documentation [facility] Name: Morgan Mckeon Age: 34 yrs Sex: Male : 1990 Arrival Date: 11/30/2024 Time: 21:29 Bed 15 Private MD: Zaid Ribera ED Physician Juan Antonio Newell HPI: 12/01 00:01 This 34 yrs old Male presents to ER via Ambulatory with complaints of High Blood kb Pressure. 00:01 Patient is a 34-year-old male who presents for high blood pressure, intermittent chest kb pain and shortness of breath, pain and tingling to all 4 extremities that started a few days ago. States he takes amlodipine for hypertension. Denies nausea, vomiting, diarrhea. States this has happened in the past.. Historical: - Allergies: 11/30 21:44 SUMATRIPTAN; lg3 - Home Meds: 12/01 01:00 Abilify oral [Active]; BuSpar Oral [Active]; Cymbalta oral [Active]; Keppra Oral kt5 [Active]; - PMHx: 11/30 21:44 Anxiety; Bipolar disorder; Hypertensive disorder; Migraine; schizoaffective disorder; lg3 Seizure; - PSHx: 21:44 ear tube; lg3 - Immunization history:: Adult Immunizations up to date. - Infectious Disease History:: Denies. - Social history:: Smoking status: Patient reports use of chewing tobacco. ROS: 23:45 Constitutional: As per HPI kb Exam: 23:45 Constitutional: This is a well developed, well nourished patient who is awake, alert, kb and in no acute distress. Head/Face: Normocephalic, atraumatic. ENT: Moist Mucous membranes Cardiovascular: Regular rate Respiratory: Respirations even and unlabored. No increased work of breathing. Talking in full sentences Abdomen/GI: Soft, non-tender. No distention Skin: Warm, dry with normal turgor. Normal color. MS/ Extremity: Pulses equal, no cyanosis. Neurovascular intact. Full, normal range of motion. Neuro: Awake and alert, GCS 15, oriented to person, place, time, and situation. 23:45 ECG was reviewed by the Attending Physician. Vital Signs: 21:41 BP 152 / 91; Pulse 91; Resp 17; Temp 98.4; Pulse Ox 98% on R/A; Weight 97.52 kg; Height lg3 6 ft. 0 in. ; 22:00 BP 146 / 78; Pulse 68; Resp 18; Pulse Ox 98% ; kt5 23:08 BP 140 / 70; Pulse 70; Resp 18; Pulse Ox 98% ; kt5 23:56 BP 148 / 81; Pulse 65; Resp 18 S; Pulse Ox 98% on R/A; kt5 12/01 00:56 BP 132 / 72; Pulse 72; Resp 18 S; Pulse Ox 99% on R/A; kt5 11/30 21:41 Body Mass Index 29.16 (97.52 kg, 182.88 cm) lg3 MDM: 11/30 21:35 Medical Screening Exam initiated kb 23:45 Data reviewed: vital signs, nurses notes. 12/01 00:01 Differential diagnosis: hypertensive crisis, Malignant HTN, Arrhythmia, acute UT, viral kb illness. Consideration of Admission/Observation Escalation of care including admission/observation considered. admission considered for chest pain, but HEART score 1. Independent interpretation of the following test(s) in the Emergency Department X-Ray: My interpretation is no pneumothorax. Counseling: I had a detailed discussion with the patient and/or guardian regarding the historical points, exam findings, and any diagnostic results supporting the discharge/admit diagnosis, lab results, radiology results, the need for outpatient follow up, a family practitioner, to return to the emergency department if symptoms worsen or persist or if there are any questions or concerns that arise at home. 11/30 22:14 Order name: Basic Metabolic Panel; Complete Time: 23:44 kb 11/30 22:14 Order name: CBC with Diff; Complete Time: 23:44 kb 11/30 22:14 Order name: Troponin HS; Complete Time: 23:44 kb 11/30 22:14 Order name: Group A Streptococcus Rapid; Complete Time: 23:44 kb 11/30 22:14 Order name: COVID-19 Ag + Flu A+B Ag; Complete Time: 23:37 kb 11/30 23:41 Order name: Throat Culture EDNY 11/30 22:14 Order name: XRAY Chest (1 view) kb 11/30 22:14 Order name: Cardiac monitoring; Complete Time: 23:15 kb 11/30 22:14 Order name: EKG - Nurse/Tech; Complete Time: 23:15 kb 11/30 22:14 Order name: IV Saline Lock; Complete Time: 23:15 kb 11/30 22:14 Order name: Labs collected and sent; Complete Time: 23:15 kb 11/30 22:14 Order name: O2 Per Protocol kb 11/30 22:14 Order name: O2 Sat Monitoring kb EC/25 23:45 Rate is 71 beats/min. Rhythm is regular. QRS Pyote is Normal. ME interval is normal at kb 150 msec. QRS interval is normal at 108 msec. QT interval is normal at 436 msec. Administered Medications: No medications were administered Disposition: 12/01 13:32 Co-signature as Attending Physician, Juan Antonio Newell MD I agree with the assessment and fariha plan of care. Disposition Summary: 12/01/24 00:08 Discharge Ordered Notes: Location: Home kb Condition: Stable kb Diagnosis - Essential (primary) hypertension kb Followup: kb - With: Emergency Department - When: As needed - Reason: Worsening of condition Followup: kb - With: Private Physician - When: 2 - 3 days - Reason: Recheck today's complaints, Continuance of care, Re-evaluation by your physician Discharge Instructions: - Discharge Summary Sheet kb - Hypertension, Adult, [id number] kb Forms: - Medication Reconciliation Form kb - Antibiotic Education kb - Prescription Opioid Use kb - Patient Portal Instructions kb - Leadership Thank You Letter kb Signatures: Dispatcher [employer] EDSheyla Hale, [employer]-C [employer]-Juan Antonio Emmanuel MD MD cha Able, Lacie, RN RN lg3 Jenna Hodge, RN RN kt5 Corrections: (The following items were deleted from the chart) 11/30 22:15 22:15 BASIC METABOLIC PANEL+C.LAB.BRZ ordered. EDMS EDMS 22:15 22:15 CBC+H.LAB.BRZ ordered. EDMS EDMS 22:15 22:15 Troponin High Sensitivity+C.LAB.BRZ ordered. EDMS EDMS 22:15 22:15 Group A Streptococcus Rapid Sc+I.LAB.BRZ ordered. EDMS EDMS 22:15 22:15 COVID-19 Ag + Flu A+B Ag+I.LAB.BRZ ordered. EDMS EDMS 22:15 22:15 Chest Single View+RAD.RAD.BRZ ordered. EDMS EDMS
[2024-12-01 05:28] VITALS: TEMP 98.4
--- NOTE | 2024-12-01 05:35 | RAD REPORT ---
EXAM DESCRIPTION: Chest Single View CLINICAL HISTORY: 4 years Male, DYSPNEA Comparison: Chest radiograph dated 01/11/2024 IMPRESSION: No focal lung consolidation. No pleural effusion. No pneumothorax. Cardiomediastinal silhouette is within normal limits. No acute osseous abnormality. Electronically signed by: Naeem Santillan DO 11/30/2024 11:13 PM CDT RP 9 Due to temporary technical issues with the PACS/NsGene reporting system, reports are being bakari d by the in-house radiologist without review as a courtesy to ensure prompt reporting the interpreting radiologist is fully responsible for the content of the report. Transcribed Date/Time: 12/01/2024 5:35 AM
[2024-12-01 05:36] VITALS: BP 132/72; O2SAT 99
== END 2024-12-01 01:01 | disposition home or self-care (01) ==
LOC: ER 21:29
DX: I10 Essential (primary) hypertension (principal); F17.220 Nicotine dependence, chewing tobacco, uncomplicated; Z11.52 Encounter for screening for COVID-19
CPT/HCPCS: 36415; 71045; 80048; 84484; 85025; 87070; 87428; 93005

== ENCOUNTER 2025-02-03 18:58 | Emergency (ER) | payer OTHER ==
[2025-02-03] MEDS ORDERED: METHYLPREDNISOLONE 125 MG INJ ONE (21:09)
[2025-02-03] MEDS ORDERED: METOCLOPRAMIDE 10 MG/2mL INJ ONE (21:10)
[2025-02-03] MEDS ORDERED: DIPHENHYDRAMINE 50 MG/ML VIAL ONE (21:10)
--- NOTE | 2025-02-03 21:11 | RAD REPORT ---
EXAMINATION: ONE VIEW CHEST XR CLINICAL INDICATION: Male, 34 years old.,CHEST PAIN TECHNIQUE: Frontal chest projection is submitted. Examination is limited by patient positioning and t echnique. COMPARISON: 11/30/2024 FINDINGS: The lungs are well inflated and clear. No pneumothorax or sizable effusion. The heart is normal in s ize. Mediastinal contours are unremarkable. IMPRESSION: No acute intrathoracic abnormalities.
[2025-02-03 21:35] LABS: Absolute Lymphocytes (CBC) 2.8 K/uL (0.7-4.9); Hematocrit 41.2 % (39.6-49.0); Hemoglobin 13.9 g/dL (13.6-17.9); MCH 27.7 pg (27.0-35.0); MCHC 33.6 g/dL (32.0-36.0); MCV 82.5 fL (80-100); MPV 8.4 fL (7.6-11.3); Nucleated RBC Absolute Count 0.0 (0-0); Nucleated Red Blood Cells % 0.0 % (0-0); RBC Red Blood Cell Count 5.00 M/uL (4.33-5.43); White Blood Count 14.80 thou/uL (4.3-10.9)
[2025-02-03 21:50] LABS: Influenza A Ag Negative; Influenza B Ag Negative; SARS-CoV-2 Antigen Rapid Res Negative (Negative)
[2025-02-03 21:54] LABS: D-Dimer 0.314 FEUug/mL (0-0.500); PT Prothrombin Time 12.5 SECONDS (10-13.0); Protime INR 1.11
[2025-02-03 22:08] LABS: ALT/SGPT 55 U/L (16-61); AST/SGOT 29 U/L (15-37); Albumin 4.0 g/dL (3.4-5.0); Albumin/Globulin Ratio 1.1 (1.1-1.8); Alkaline Phosphatase 94 U/L (45-117); Anion Gap 9.5 mEq/L (5.0-15.0); BUN Blood Urea Nitrogen 12 mg/dL (7-18); Globulin 3.7 g/dL (2.3-3.5); Glucose Level 95 mg/dL (74-106); Magnesium 1.9 mg/dL (1.6-2.4); Potassium 3.5 mEq/L (3.5-5.1); Troponin High Sensitivity 20.0 pg/mL (<58.9)
[2025-02-03 22:11] LABS: Bilirubin Indirect, Calculated 0.4 mg/dL (0.2-0.8); NT PRO-BNP < 5 pg/mL (<125)
[2025-02-03] MEDS ORDERED: NA CHLORIDE 0.9% 500 ML ONE (22:58)
[2025-02-03] MEDS ORDERED: KETOROLAC 30 MG/ML INJ ONE (22:58)
--- NOTE | 2025-02-03 23:40 | EDPHYS ---
Physician Documentation [facility] Name: Morgan Mckeon Age: 34 yrs Sex: Male : 1990 Arrival Date: 02/03/2025 Time: 18:58 Bed 15 Private MD: ED Physician Seth Worthy HPI: 02/03 19:35 This 34 yrs old Male presents to ER via Ambulatory with complaints of Shortness Of cp Breath, Headache. 19:35 The patient has shortness of breath with light activity. cp 19:35 Onset: The symptoms/episode began/occurred 5 day(s) ago. cp 19:35 Duration: The symptoms are continuous, and are steadily getting worse. Associated signs cp and symptoms: Pertinent positives: chest pain times 7 days, Pertinent negatives: fever, hemoptysis, vomiting. Severity of symptoms: in the emergency department the symptoms have improved mildly, after using prescribed inhaler. Historical: - Allergies: 19:22 No Known Allergies; bp - PMHx: 19:22 Anxiety; Bipolar disorder; Hypertensive disorder; Migraine; schizoaffective disorder; bp Seizure; - PSHx: 19:22 ear tube; bp - Immunization history:: Adult Immunizations unknown. - Infectious Disease History:: Denies. - Social history:: Smoking status: Reported history of juuling and/or vaping. Patient uses alcohol, occasionally. Patient/guardian denies using street drugs, IV drugs. ROS: 19:40 Constitutional: Negative for fever, poor PO intake, cp 19:40 Eyes: Negative for injury, pain, redness, and discharge, cp 19:40 Cardiovascular: Positive for chest pain, of the mid-sternal area, Negative for edema, 19:40 Respiratory: Positive for shortness of breath, Negative for hemoptysis, wheezing, productive cough, 19:40 Abdomen/GI: Negative for abdominal pain, vomiting, diarrhea, constipation, 19:40 : Negative for urinary symptoms, 19:40 Neuro: Positive for headache, Negative for altered mental status, dizziness, syncope, near syncope, weakness, 19:40 All other systems are negative, Exam: 19:42 Constitutional: The patient appears in no acute distress, alert, awake, cp non-diaphoretic, non-toxic, well developed, well groomed, well nourished, obese, uncomfortable, 19:42 Head/Face: Normocephalic, atraumatic. cp 19:42 Eyes: Periorbital structures: appear normal, Conjunctiva: normal, no exudate, no injection, Sclera: no appreciated abnormality, Lids and lashes: appear normal, bilaterally, 19:42 ENT: External ear(s): are unremarkable, Nose: is normal, Mouth: Lips: moist, Oral mucosa: moist, Posterior pharynx: Airway: no evidence of obstruction, patent, erythema, is not appreciated, exudate, is not appreciated, Voice: is normal, 19:42 Neck: ROM/movement: is normal, is supple, without pain, no range of motions limitations, no meningismus, 19:42 Chest/axilla: Inspection: normal, Palpation: crepitus, is not appreciated, tenderness, that is moderate, of the mid-sternal area, 19:42 Cardiovascular: Rate: normal, Rhythm: regular, Edema: is not appreciated, JVD: is not appreciated, 19:42 Respiratory: the patient does not display signs of respiratory distress, Respirations: shallow respirations, that is mild, Breath sounds: are clear throughout, no decreased breath sounds, no stridor, no wheezing, 19:42 Abdomen/GI: Inspection: obese Palpation: abdomen is soft and non-tender, in all quadrants, 19:42 Back: pain, is absent, ROM is normal, 19:42 Skin: no rash present. 20:53 ECG was reviewed by the Attending Physician. cp Vital Signs: 19:15 BP 145 / 95; Pulse 80; Resp 20; Temp 97.5; Pulse Ox 100% ; Weight 142.88 kg; Height 6 bp ft. 0 in. ; Pain 7/10; 21:35 BP 148 / 85; Pulse 89; Resp 18; Pulse Ox 99% on R/A; Pain 6/10; kd4 22:52 BP 131 / 75; Pulse 74; Resp 16; Pulse Ox 96% on R/A; kd4 23:43 BP 104 / 53; Pulse 75; Resp 16; Pulse Ox 95% on R/A; kd4 23:52 BP 132 / 72; Pulse 74; Resp 16; Temp 97.9; Pulse Ox 96% on R/A; Pain 4/10; kd4 19:15 Body Mass Index 42.72 (142.88 kg, 182.88 cm) bp 19:15 Pain Scale: Adult bp 21:35 Pain Scale: Adult kd4 23:52 Pain Scale: Adult kd4 Donnell Coma Score: 21:30 Eye Response: spontaneous(4). Verbal Response: oriented(5). Motor Response: obeys kd4 commands(6). Total: 15. MDM: 19:32 Medical Screening Exam initiated cp 21:00 Differential diagnosis: asthma, Bronchitis Myocardial Infarction pneumonia, cp Pneumothorax pulmonary edema, Pulmonary Embolism Sepsis. 23:39 Data reviewed: vital signs, nurses notes, lab test result(s), EKG, radiologic studies, cp plain films, and as a result, I will discharge patient. 23:39 I considered the following discharge prescriptions or medication management in the emergency department Medications were administered in the Emergency Department. See MAR. Independent interpretation of the following test(s) in the Emergency Department EKG: See my EKG interpretation above X-Ray: My interpretation is chest xray negative for focal pmeumonia. Care significantly affected by the following chronic conditions: Hypertension, Obesity, seizure disorder. 23:39 Counseling: I had a detailed discussion with the patient and/or guardian regarding the historical points, exam findings, and any diagnostic results supporting the discharge/admit diagnosis, lab results, the need for outpatient follow up, a family practitioner, to return to the emergency department if symptoms worsen or persist or if there are any questions or concerns that arise at home. 23:39 Test considered but Not performed: CT: chest. 02/03 19:30 Order name: Basic Metabolic Panel; Complete Time: 22:37 02/03 19:30 Order name: CBC with Diff; Complete Time: 22:37 02/03 22:37 Interpretation: WBC 14.80; PLT 407; NEUT A 10.7. 02/03 19:30 Order name: D-Dimer; Complete Time: 22:37 02/03 19:30 Order name: LFT's; Complete Time: 22:37 02/03 19:30 Order name: Magnesium; Complete Time: 22:37 cp 02/03 19:30 Order name: NT PRO-BNP; Complete Time: 22:37 02/03 19:30 Order name: PT-INR; Complete Time: 22:37 02/03 19:30 Order name: Troponin HS; Complete Time: 22:37 02/03 19:30 Order name: COVID-19 Ag + Flu A+B Ag; Complete Time: 21:52 cp 02/03 19:30 Order name: XRAY Chest (1 view); Complete Time: 21:52 cp 02/03 21:52 Interpretation: Report review. 02/03 19:30 Order name: EKG; Complete Time: 19:31 cp 02/03 19:30 Order name: Cardiac monitoring; Complete Time: 22:49 02/03 19:30 Order name: EKG - Nurse/Tech; Complete Time: 22:49 cp 02/03 19:30 Order name: IV Saline Lock; Complete Time: 22:20 cp 02/03 19:30 Order name: Labs collected and sent; Complete Time: 22:20 cp 02/03 19:30 Order name: O2 Per Protocol; Complete Time: 22:20 cp 02/03 19:30 Order name: O2 Sat Monitoring; Complete Time: 22:20 cp EC:53 Rate is 65 beats/min. Rhythm is regular. DC interval is normal. QRS interval is cp prolonged at 117 msec. QT interval is normal. T waves are Inverted in leads III, aVR. Interpreted by me. Reviewed by me. Administered Medications: 21:34 Drug: MethylPrednisoLONE IVP 125 mg IVP once Route: IVP; Site: right antecubital; kd4 22:53 Follow up: Response: No adverse reaction kd4 21:34 Drug: metoCLOPramide IVP 10 mg IVP once; over 1 to 2 minutes Route: IVP; Site: right kd4 antecubital; 22:53 Follow up: Response: No adverse reaction kd4 21:34 Drug: diphenhydrAMINE IVP 25 mg IVP once Route: IVP; Site: right antecubital; kd4 22:53 Follow up: Response: No adverse reaction kd4 23:03 Drug: Ketorolac IVP 30 mg IVP once Route: IVP; Site: right antecubital; kd4 23:44 Follow up: Response: No adverse reaction kd4 23:03 Drug: NS 0.9% IV 500 ml IV at bolus once; to be given as a bolus over 30 minutes Route: kd4 IV; Rate: bolus; Site: right antecubital; 23:44 Follow up: IV Status: Completed infusion kd4 Disposition: 10/30 04:19 Co-signature as Attending Physician, Seth Worthy MD I agree with the assessment sp4 and plan of care. I reviewed the patient's care provided by Advanced Practice Provider \T\ agree w/ the diagnosis \T\ care plan. I personally saw the pt \T\ performed a substantive portion of the visit, incldng all aspects of the (History/Exam/Medical Decision Making). Disposition Summary: 02/03/25 23:39 Discharge Ordered Notes: Location: Home cp Problem: new cp Symptoms: have improved cp Condition: Stable cp Diagnosis - Chest pain, unspecified cp - Shortness of breath cp - Headache cp Followup: cp - With: Private Physician - When: 2 - 3 days - Reason: Worsening of condition Discharge Instructions: - Discharge Summary Sheet cp - Nonspecific Chest Pain, Adult cp - General Headache Without Cause cp - Shortness of Breath, Adult cp Forms: - Medication Reconciliation Form cp - Antibiotic Education cp - Prescription Opioid Use cp - Patient Portal Instructions cp - Leadership Thank You Letter cp Prescriptions: - Anaprox DS 550 mg Oral Tablet - take 1 tablet ORAL route every 12 hours As needed; 20 tablet; Refills: 0, cp Product Selection Permitted - Zithromax Z-Ankit 250 mg Oral Tablet - take 1 tablet ORAL route as directed for 5 days Day 1 - take two (2) tablets cp one time. Day 2, 3, 4 , 5 take one (1) tablet once daily.; 6 tablet; Refills: 0, Product Selection Permitted - Medrol (Ankit) 4 mg Oral Tablets, Dose Pack - take 1 tablet ORAL route as directed - follow package instructions; 1 packet; cp Refills: 0, Product Selection Permitted Signatures: Dispatcher [employer] EDMS Juan Antonio Mix PA-C PASuleiman Dixon cp, RN RN Seth Rojas MD MD sp4 Juan David Denton RN RN kd4 Corrections: (The following items were deleted from the chart) 02/03 19:26 19:22 Allergies: SUMATRIPTAN; bp bp 19:31 19:31 BASIC METABOLIC PANEL+C.LAB.BRZ ordered. EDMS EDMS 19:31 19:31 CBC+H.LAB.BRZ ordered. EDMS EDMS 19:31 19:31 D-DIMER+COAG.LAB.BRZ ordered. EDMS EDMS 19:31 19:31 HEPATIC FUNCTION+C.LAB.BRZ ordered. EDMS EDMS 19:31 MAGNESIUM+C.LAB.BRZ ordered. EDMS EDMS 19:31 PROBNP+C.LAB.BRZ ordered. EDMS EDMS 19:31 PROTIME (+INR)+COAG.LAB.BRZ ordered. EDMS EDMS 19:31 Troponin High Sensitivity+C.LAB.BRZ ordered. EDMS EDMS 19:31 COVID-19 Ag + Flu A+B Ag+I.LAB.BRZ ordered. EDMS EDMS
--- NOTE | 2025-02-03 23:40 | ER ---
Nurse's Notes [facility] Name: Morgan Mckeon Age: 34 yrs Sex: Male : 1990 Arrival Date: 02/03/2025 Time: 18:58 Bed 15 Private MD: Diagnosis: Chest pain, unspecified;Shortness of breath;Headache Presentation: 02/03 19:15 Chief complaint: Patient states: HURTS TO TAKE DEEP BREATHS AND A MIGRAINE X4-5 DAYS. bp FATIGUE WITH WALKING, SOB, CP. SAW HIS DR 7 DAYS AGO FOR PAIN IN HIS LUNGS AND WAS PRESCRIBED ALBUTEROL INHALER. Coronavirus screen: At this time, the client does not indicate any symptoms associated with coronavirus-19. Ebola Screen: No symptoms or risks identified at this time. Initial Sepsis Screen: Does the patient meet any 2 criteria? No. Patient's initial sepsis screen is negative. Does the patient have a suspected source of infection? No. Patient's initial sepsis screen is negative. Risk Assessment: Do you want to hurt yourself or someone else? Patient reports no desire to harm self or others. Note ALBUTEROL INHALER. Onset of symptoms was January 29, 2025. 19:15 Method Of Arrival: Ambulatory bp 19:15 Acuity: JOSE 3 bp Triage Assessment: 19:22 General: Appears in no apparent distress. comfortable, Behavior is calm, cooperative, bp appropriate for age. Pain: Complains of pain in chest. Respiratory: Reports shortness of breath labored breathing pain with movement pain with respiration Airway is patent Respiratory effort is even, unlabored, Respiratory pattern is regular, symmetrical, Onset: The symptoms/episode began/occurred OVER A WEEK, the patient has mild shortness of breath. Historical: - Allergies: 19:22 No Known Allergies; bp - PMHx: 19:22 Anxiety; Bipolar disorder; Hypertensive disorder; Migraine; schizoaffective disorder; bp Seizure; - PSHx: 19:22 ear tube; bp - Immunization history:: Adult Immunizations unknown. - Infectious Disease History:: Denies. - Social history:: Smoking status: Reported history of juuling and/or vaping. Patient uses alcohol, occasionally. Patient/guardian denies using street drugs, IV drugs. Screenin:30 [facility] ED Fall Risk Assessment (Adult) History of falling in the last 3 months, kd4 including since admission No falls in past 3 months (0 pts) Confusion or Disorientation No (0 pts) Intoxicated or Sedated No (0 pts) Impaired Gait No (0 pts) Mobility Assist Device Used No (0 pt) Altered Elimination No (0 pt) Score/Fall Risk Level 0 - 2 = Low Risk Oriented to surroundings, Maintained a safe environment. Abuse screen: Denies threats or abuse. Nutritional screening: No deficits noted. Tuberculosis screening: No symptoms or risk factors identified. Assessment: 21:30 General: Appears in no apparent distress. comfortable. Pain: Complains of pain in chest kd4 Pain currently is 6 out of 10 on a pain scale. Neuro: Reports headache in entire. Cardiovascular: Reports chest pain, shortness of breath. Cardiovascular: Rhythm is regular. Respiratory: Reports shortness of breath at rest Airway is patent Respiratory effort is even, unlabored. 23:52 Respiratory: Breath sounds are clear bilaterally. kd4 Vital Signs: 19:15 BP 145 / 95; Pulse 80; Resp 20; Temp 97.5; Pulse Ox 100% ; Weight 142.88 kg; Height 6 bp ft. 0 in. ; Pain 7/10; 21:35 BP 148 / 85; Pulse 89; Resp 18; Pulse Ox 99% on R/A; Pain 6/10; kd4 22:52 BP 131 / 75; Pulse 74; Resp 16; Pulse Ox 96% on R/A; kd4 23:43 BP 104 / 53; Pulse 75; Resp 16; Pulse Ox 95% on R/A; kd4 23:52 BP 132 / 72; Pulse 74; Resp 16; Temp 97.9; Pulse Ox 96% on R/A; Pain 4/10; kd4 19:15 Body Mass Index 42.72 (142.88 kg, 182.88 cm) bp 19:15 Pain Scale: Adult bp 21:35 Pain Scale: Adult kd4 23:52 Pain Scale: Adult kd4 Donnell Coma Score: 21:30 Eye Response: spontaneous(4). Verbal Response: oriented(5). Motor Response: obeys kd4 commands(6). Total: 15. ED Course: 19:01 Patient arrived in ED. im 19:02 Juan Antonio Mix PA-C is PHCP. cp 19:02 Seth Worthy MD is Attending Physician. cp 19:13 Suleiman Sheets, RN is Primary Nurse. bp 19:22 Triage completed. bp 19:22 Arm band placed on left wrist. bp 20:52 EKG done, by ED staff, reviewed by Juan Antonio Mix PA-C. oe 21:07 XRAY Chest (1 view) In Process Unspecified. EDMS 21:22 Primary Nurse role handed off by Suleiman Sheets, RN rv1 21:30 Patient has correct armband on for positive identification. Bed in low position. Call kd4 light in reach. Client placed on continuous cardiac and pulse oximetry monitoring. NIBP monitoring applied. classroom monitor on. Pulse ox on. NIBP on. 21:30 Initial lab(s) drawn, by me, sent to lab. COVID swab sent to lab. Inserted saline lock: kd4 20 gauge in right antecubital area, using aseptic technique. 21:35 Juan David Denton, EITAN is Primary Nurse. kd4 23:52 No provider procedures requiring assistance completed. IV discontinued. kd4 23:53 Provided Education on: d/c. kd4 Administered Medications: 21:34 Drug: MethylPrednisoLONE IVP 125 mg IVP once Route: IVP; Site: right antecubital; kd4 22:53 Follow up: Response: No adverse reaction kd4 21:34 Drug: metoCLOPramide IVP 10 mg IVP once; over 1 to 2 minutes Route: IVP; Site: right kd4 antecubital; 22:53 Follow up: Response: No adverse reaction kd4 21:34 Drug: diphenhydrAMINE IVP 25 mg IVP once Route: IVP; Site: right antecubital; kd4 22:53 Follow up: Response: No adverse reaction kd4 23:03 Drug: Ketorolac IVP 30 mg IVP once Route: IVP; Site: right antecubital; kd4 23:44 Follow up: Response: No adverse reaction kd4 23:03 Drug: NS 0.9% IV 500 ml IV at bolus once; to be given as a bolus over 30 minutes Route: kd4 IV; Rate: bolus; Site: right antecubital; 23:44 Follow up: IV Status: Completed infusion kd4 Medication: 21:30 VIS not applicable for this client. kd4 Outcome: 23:39 Discharge ordered by MD. molina 23:53 Discharged to home ambulatory, kd4 23:53 Condition: stable 23:53 Discharge instructions given to patient, Instructed on discharge instructions, follow up and referral plans. medication usage, Demonstrated understanding of instructions, follow-up care, medications, Prescriptions given X 3, 23:53 Patient left the ED. kd4 Signatures: Dispatcher [employer] EDMS Juan Antonio Mix PA-C PA-C cp Espinosa, Orlando oe Peltier, Brian, RN RN bp Ena Hankins rv1 Archana Rice Karim, RN RN kd4 Corrections: (The following items were deleted from the chart) 19:26 19:22 Allergies: SUMATRIPTAN; bp bp
[2025-02-04 00:18] VITALS: BP 132/72; TEMP 97.9; O2SAT 96
== END 2025-02-03 23:53 | disposition home or self-care (01) ==
LOC: ER 18:58
DX: R07.9 Chest pain, unspecified (principal); R06.02 Shortness of breath; R51.9 Headache, unspecified; I10 Essential (primary) hypertension; Z11.52 Encounter for screening for COVID-19
CPT/HCPCS: 96361; 93005; 85025; 80048; 36415; 83735; 85610; 85379; 80076; 84484; 83880; 71045; 96375; 96374; 99285; 87428; J1885; J2765; J1200; J2919; J7040